=== PATIENT | male | born 1960 | race Caucasian/White ===

== ENCOUNTER 2018-06-27 06:40 | Inpatient (IN) | payer OTHER ==
[2018-06-27] MEDS ORDERED: IODIXANOL LOCM 100 ML BTL (09:02)
[2018-06-27] MEDS ORDERED: HEPARIN 1000 UNITS/ML 10 ML INJ (09:02)
[2018-06-27] MEDS ORDERED: LIDOCAINE 1% (MDV) 20 ML INJ (09:02)
[2018-06-27] MEDS ORDERED: NITROGLYCERIN (IC) 100 MCG/ML INJ (09:03)
[2018-06-27] MEDS ORDERED: VERAPAMIL 5 MG INJ (09:03)
[2018-06-27] MEDS ORDERED: FENTAnyl 50 MCG/ML VIAL (09:03)
[2018-06-27] MEDS ORDERED: MIDAZOLAM 1 MG/ML 2 ML INJ (09:03)
[2018-06-27] MEDS ORDERED: SOD CHLORIDE 0.9% 500 ML (10:33)
[2018-06-27] MEDS ORDERED: HEPARIN 1000 UNITS/ML 10 ML INJ IV (11:00)
[2018-06-27 11:17] LABS: ADD MAN DIFF? NO
[2018-06-27 11:19] LABS: WHITE BLOOD COUNT 9.9 10^3/ul (4.8-10.8)
[2018-06-27 11:19] LABS: BASOPHILS % 0.4 % (0.0-2.0); EOSINOPHILS # 0.1 10^3/ul (0.0-0.5); EOSINOPHILS % 1.4 % (0.0-7.0); HEMATOCRIT 45.9 % (42.0-52.0); HEMOGLOBIN 14.9 g/dl (14.0-18.0); LYMPHOCYTES % 30.4 % (15.0-51.0); MEAN CORPUSCULAR HEMOGLOBIN 30.8 pg (29.0-33.0); MEAN CORPUSCULAR HGB CONC 32.5 g/dl (32.0-37.0); MEAN CORPUSCULAR VOLUME 94.8 fl (82.0-101.0); MEAN PLATELET VOLUME 9.6 fl (7.4-10.4); MONOCYTE # 0.7 10^3/ul (0.3-0.9); MONOCYTES % 7.2 % (0.0-11.0); NEUTROPHIL # 5.9 10^3/ul (1.6-7.5); NEUTROPHILS % 60.2 % (39.0-77.0); PLATELET COUNT 140 10^3/UL (140-415); RED BLOOD COUNT 4.84 10^6/ul (4.70-6.10); RED CELL DISTRIBUTION WIDTH 14.1 % (11.5-14.5)
[2018-06-27] MEDS: ACETAMINOPHEN 325 MG TAB PO (11:27)
[2018-06-27] MEDS: ASPIRIN 81 MG TAB PO (11:27)
[2018-06-27] MEDS: METOPROLOL 25 MG TAB PO ×2 (11:28→21:00)
[2018-06-27] MEDS: SOD CHLORIDE 0.9% 1,000 ML IV (11:29)
[2018-06-27] MEDS ORDERED: morphine 2 MG INJ IV (11:30)
[2018-06-27 11:38] LABS: INR 0.95; PROTIME 12.8 Sec (11.9-14.9)
[2018-06-27 11:39] LABS: PARTIAL THROMBOPLASTIN TIME 34.5 Sec (23.0-35.0)
[2018-06-27 12:10] LABS: HEMOGLOBIN A1C 6.9 % (0-5.9)
[2018-06-27] MEDS: HOLD all METFORMIN and METFORMIN CONTAINING medications for 48 hours post procedure. Chec XX (14:02)
[2018-06-27] MEDS: ISOSORBIDE MONONITRATE(SR)60 MG TAB PO (14:21)
[2018-06-27] MEDS: HEPARIN 1000 UNITS/ML 10 ML INJ IV (14:58)
[2018-06-27] MEDS: HEPARIN 25000 UNITS/250 ML 250 ML IV (15:03)
[2018-06-27] MEDS ORDERED: DEXTROSE 50% 50 ML SYRINGE IV ×2 (15:30)
[2018-06-27] MEDS ORDERED: GLUCOSE GEL 15 GRAM TUBE BUCCAL (15:30)
[2018-06-27] MEDS ORDERED: GLUCOSE GEL 15 GRAM TUBE PO ×2 (15:30)
[2018-06-27] MEDS ORDERED: GLUCAGON 1 MG INJ IM (15:30)
[2018-06-27 16:07] LABS: ADD MAN DIFF? NO
[2018-06-27 16:11] LABS: BASOPHILS % 0.4 % (0.0-2.0); EOSINOPHILS # 0.1 10^3/ul (0.0-0.5); HEMOGLOBIN 14.5 g/dl (14.0-18.0); LYMPHOCYTES # 2.8 10^3/ul (0.8-2.9); LYMPHOCYTES % 26.9 % (15.0-51.0); MEAN CORPUSCULAR HEMOGLOBIN 30.9 pg (29.0-33.0); MEAN CORPUSCULAR HGB CONC 33.7 g/dl (32.0-37.0); MEAN CORPUSCULAR VOLUME 91.5 fl (82.0-101.0); MEAN PLATELET VOLUME 9.4 fl (7.4-10.4); MONOCYTE # 0.9 10^3/ul (0.3-0.9); MONOCYTES % 8.2 % (0.0-11.0); NEUTROPHIL # 6.6 10^3/ul (1.6-7.5); NEUTROPHILS % 63.1 % (39.0-77.0); PLATELET COUNT 147 10^3/UL (140-415)
[2018-06-27 16:11] LABS: WHITE BLOOD COUNT 10.4 10^3/ul (4.8-10.8)
[2018-06-27] MEDS: INSULIN ASPART [NOVOLOG] 3 ML PEN SC ×2 (17:00→21:00)
[2018-06-27 21:09] LABS: PARTIAL THROMBOPLASTIN TIME 32.2 Sec (23.0-35.0)
[2018-06-27] MEDS: ATORVASTATIN 80 MG TAB PO (21:39)
[2018-06-28] MEDS: HEPARIN 25000 UNITS/250 ML 250 ML IV ×3 (00:14→08:15)
[2018-06-28] MEDS: HEPARIN 1000 UNITS/ML 10 ML INJ IV (00:14)
[2018-06-28] MEDS: ACCU-CHEK XX (02:02)
[2018-06-28 06:48] LABS: ADD MAN DIFF? NO
[2018-06-28 06:56] LABS: WHITE BLOOD COUNT 10.4 10^3/ul (4.8-10.8)
[2018-06-28 06:56] LABS: BASOPHILS % 0.4 % (0.0-2.0); EOSINOPHILS # 0.2 10^3/ul (0.0-0.5); EOSINOPHILS % 1.9 % (0.0-7.0); HEMATOCRIT 46.5 % (42.0-52.0); HEMOGLOBIN 15.7 g/dl (14.0-18.0); LYMPHOCYTES # 3.1 10^3/ul (0.8-2.9); LYMPHOCYTES % 29.5 % (15.0-51.0); MEAN CORPUSCULAR HEMOGLOBIN 30.8 pg (29.0-33.0); MEAN CORPUSCULAR HGB CONC 33.8 g/dl (32.0-37.0); MEAN CORPUSCULAR VOLUME 91.4 fl (82.0-101.0); MEAN PLATELET VOLUME 9.2 fl (7.4-10.4); MONOCYTE # 0.7 10^3/ul (0.3-0.9); NEUTROPHIL # 6.3 10^3/ul (1.6-7.5); NEUTROPHILS % 60.8 % (39.0-77.0); PLATELET COUNT 155 10^3/UL (140-415); RED BLOOD COUNT 5.09 10^6/ul (4.70-6.10); RED CELL DISTRIBUTION WIDTH 13.8 % (11.5-14.5)
[2018-06-28 07:16] LABS: PARTIAL THROMBOPLASTIN TIME 53.6 Sec (23.0-35.0)
[2018-06-28 07:30] LABS: ANION GAP 9 (5-13); BLOOD UREA NITROGEN 11 mg/dl (7-20); CALCIUM 9.1 mg/dl (8.4-10.2); CARBON DIOXIDE 24 mmol/L (21-31); CHLORIDE 109 mmol/L (97-110); Estimated GFR > 60 mL/min (>60); GLUCOSE 115 mg/dl (70-220); MAGNESIUM 2.1 mg/dl (1.7-2.5); PHOSPHORUS 3.5 mg/dl (2.5-4.9); SODIUM 142 mmol/L (135-144)
[2018-06-28 07:48] LABS: POTASSIUM 4.1 mmol/L (3.5-5.1)
[2018-06-28] MEDS: INSULIN ASPART [NOVOLOG] 3 ML PEN SC ×4 (07:55→21:00)
[2018-06-28] MEDS: ISOSORBIDE MONONITRATE(SR)60 MG TAB PO (08:11)
[2018-06-28] MEDS: METOPROLOL 25 MG TAB PO ×2 (08:11→21:39)
[2018-06-28] MEDS: ASPIRIN 81 MG TAB PO (08:11)
[2018-06-28] MEDS ORDERED: ENOXAPARIN 40 MG/0.4 ML SYG SC (09:00)
[2018-06-28] MEDS ORDERED: INFLUENZA VIRUS VACCINE 0.5 ML (DISPENSING) IM* (09:00)
[2018-06-28] MEDS: ALBUTEROL 0.083% (NEB) 2.5 MG/3 ML AMP HHN (09:30)
[2018-06-28] MEDS: HOLD all METFORMIN and METFORMIN CONTAINING medications for 48 hours post procedure. Chec XX (10:44)
[2018-06-28 13:45] LABS: SODIUM,URINE RANDOM 98 mmol/L (30-90)
[2018-06-28 13:45] LABS: CREATININE,URINE RANDOM 94.15 mg/dl (20-370)
[2018-06-28 15:37] LABS: PARTIAL THROMBOPLASTIN TIME 58.8 Sec (23.0-35.0)
[2018-06-28 20:40] LABS: PARTIAL THROMBOPLASTIN TIME 57.2 Sec (23.0-35.0)
[2018-06-28] MEDS: ATORVASTATIN 80 MG TAB PO (21:38)
[2018-06-29] MEDS: ACCU-CHEK XX ×9 (02:00→23:56)
[2018-06-29] MEDS ORDERED: DOPamine-D5W 1.6 MG/ML 250 ML (07:00)
[2018-06-29] MEDS: INSULIN ASPART [NOVOLOG] 3 ML PEN SC (07:55)
[2018-06-29] MEDS: ASPIRIN 81 MG TAB PO (08:08)
[2018-06-29] MEDS: ISOSORBIDE MONONITRATE(SR)60 MG TAB PO (08:09)
[2018-06-29] MEDS: METOPROLOL 25 MG TAB PO ×2 (08:10→21:00)
[2018-06-29] MEDS ORDERED: MIDAZOLAM 5 ML ×2 (10:33)
[2018-06-29] MEDS ORDERED: PROPOFOL 100 ML (10:37)
[2018-06-29] MEDS ORDERED: ROCURONIUM 50 MG INJ (10:37)
[2018-06-29] MEDS ORDERED: NITROGLYCERIN 50 MG/D5W (PMX) 250 ML (10:37)
[2018-06-29] MEDS ORDERED: SUCCINYLCHOLINE CHLORIDE 100 MG/5 ML SYG IV (10:37)
[2018-06-29] MEDS ORDERED: NA BICARBONATE 8.4% 50 ML SYG ×2 (10:38→11:03)
[2018-06-29] MEDS ORDERED: LIDOCAINE 2% (SDV) 5 ML INJ (10:38)
[2018-06-29] MEDS ORDERED: CA CHLORIDE 10% 10 ML SYRINGE ×2 (10:38→11:01)
[2018-06-29] MEDS ORDERED: ALBUMIN HUMAN 25% 200 ML (10:38)
[2018-06-29] MEDS ORDERED: HEPARIN 1000 UNITS/ML 10 ML INJ ×3 (10:39→14:51)
[2018-06-29 10:41] LABS: ADD UMIC YES; UR ASCORBIC ACID NEGATIVE (NEGATIVE); UR BILIRUBIN (Dip) NEGATIVE (NEGATIVE); UR BLOOD (Dip) 1+ mg/dL (NEGATIVE); UR CLARITY CLEAR (CLEAR); UR COLOR YELLOW (YELLOW); UR GLUCOSE (Dip) NEGATIVE (NEGATIVE); UR KETONES (Dip) NEGATIVE (NEGATIVE); UR LEUKOCYTE ESTERASE (Dip) NEGATIVE Leu/ul (NEGATIVE); UR NITRITE (Dip) NEGATIVE (NEGATIVE); UR RBC 3 /HPF (0-5); UR SPECIFIC GRAVITY (Dip) 1.028 (1.003-1.030); UR TOTAL PROTEIN (Dip) NEGATIVE (NEGATIVE); UR UROBILINOGEN (Dip) 2+ mg/dL (NEGATIVE); UR WBC 0 /HPF (0-5)
[2018-06-29] MEDS ORDERED: HYDROmorphONE 0.5 MG/0.5 ML SYG IV ×4 (11:00→16:30)
[2018-06-29] MEDS ORDERED: DIPHENHYDRAMINE 50 MG INJ IV (11:00)
[2018-06-29] MEDS ORDERED: MEPERIDINE 25 MG INJ IV (11:00)
[2018-06-29] MEDS: NORepinephrine 8MG/250 ML (PMX 250 ML IV (11:00)
[2018-06-29] MEDS: HEPARIN (10000 UNITS/ML) 10,000 UNIT, MILRINONE LACTATE 10 MG in SOD CHLORIDE 0.9% 1,00... SC (11:00)
[2018-06-29] MEDS ORDERED: FENTAnyl 50 MCG/ML VIAL IV ×3 (11:00)
[2018-06-29] MEDS: EPINEPHrine 4 MG in DEXTROSE 5% 246 ML IV (11:00)
[2018-06-29] MEDS ORDERED: METOCLOPRAMIDE 10 MG INJ IV (11:00)
[2018-06-29] MEDS ORDERED: IPRATROPIUM (NEB) 0.5 MG/2.5 ML AMP HHN (11:00)
[2018-06-29] MEDS ORDERED: ONDANSETRON 4 MG INJ IV ×2 (11:00→16:30)
[2018-06-29] MEDS ORDERED: ALBUMIN HUMAN 25% 100 ML (11:00)
[2018-06-29] MEDS ORDERED: LORAZEPAM 2 MG INJ IV (11:00)
[2018-06-29] MEDS ORDERED: morphine 2 MG INJ IV ×2 (11:00)
[2018-06-29] MEDS ORDERED: LEVALBUTEROL (NEB) 1.25 MG/0.5 ML AMP HHN (11:00)
[2018-06-29] MEDS ORDERED: ALBUMIN HUMAN 5% 500 ML (11:00)
[2018-06-29] MEDS ORDERED: hydrALAzine 20 MG INJ IV (11:00)
[2018-06-29] MEDS ORDERED: HALOPERIDOL 5 MG INJ IV (11:00)
[2018-06-29] MEDS ORDERED: LABETALOL HCL 20MG INJ IV (11:00)
[2018-06-29] MEDS ORDERED: ALBUMIN HUMAN 5% 250 ML IV (11:00)
[2018-06-29] MEDS: PHENYLephrine 20MG IN 250 ML 250 ML IV ×3 (11:00→22:20)
[2018-06-29] MEDS ORDERED: morphine 10 MG INJ IV (11:00)
[2018-06-29] MEDS ORDERED: MIDAZOLAM 1 MG/ML 2 ML INJ IV (11:00)
[2018-06-29] MEDS ORDERED: AMINOCAPROIC ACID 5 GM INJ ×2 (11:01→12:38)
[2018-06-29] MEDS ORDERED: POTASSIUM CHLORIDE 40 MEQ INJ (11:02)
[2018-06-29] MEDS ORDERED: LIDOCAINE 100 MG SYRINGE (11:02)
[2018-06-29] MEDS ORDERED: MANNITOL 20% 500 ML (11:03)
[2018-06-29] MEDS ORDERED: MAGNESIUM SULFATE (MG) 50% 10 ML INJ (11:03)
[2018-06-29] MEDS ORDERED: PHENYLephrine 10 MG INJ (11:04)
[2018-06-29] MEDS ORDERED: PHENYLephrine (100 MCG/ML) 5ML SYG (11:05)
[2018-06-29] MEDS ORDERED: PROTAMINE 250 MG INJ (12:38)
[2018-06-29] MEDS ORDERED: CEFAZOLIN 1 GM INJ (12:38)
[2018-06-29] MEDS: HEPARIN 1000 UNITS/ML 10 ML INJ (13:03)
[2018-06-29] MEDS: PAPAVERINE 60 MG INJ (13:08)
[2018-06-29] MEDS: VANCOMYCIN 1 GM INJ ×2 (13:10→13:11)
[2018-06-29 14:57] LABS: CREATININE, RANDOM URINE 96 mg/dL (20-320); MICROALBUMIN 0.9 mg/dL; MICROALBUMIN/CREATININE RATIO 9 (<30)
[2018-06-29] MEDS ORDERED: FUROSEMIDE 20 MG INJ ×2 (15:00→15:51)
[2018-06-29] MEDS ORDERED: AMIODARONE 150 MG INJ (15:10)
[2018-06-29] MEDS ORDERED: morphine 10 MG INJ (15:40)
[2018-06-29] MEDS ORDERED: PROVENTIL HFA 6.7GM INHALER (15:54)
[2018-06-29] MEDS ORDERED: ACETAMINOPHEN 325 MG TAB PO (16:30)
[2018-06-29] MEDS: ASPIRIN 600 MG SUPP PR (16:30)
[2018-06-29] MEDS ORDERED: MAGNESIUM SULFATE 1 GM/D5W 100 ML IVPB (16:30)
[2018-06-29] MEDS ORDERED: CEFAZOLIN 1 GM/50 ML (PMX) 50 ML IVPB (16:30)
[2018-06-29] MEDS ORDERED: DEXTROSE 50% 50 ML SYRINGE IV ×2 (16:30)
[2018-06-29] MEDS: DOPamine-D5W 1.6 MG/ML 250 ML IV (17:16)
[2018-06-29] MEDS: MILRINONE LACTATE 2 MG in SOD CHLORIDE 0.9% 50 ML IV (17:18)
[2018-06-29] MEDS: INSULIN HUMAN REGULAR 100 UNIT in SOD CHLORIDE 0.9% 99 ML IVPB (17:21)
[2018-06-29] MEDS: CEFAZOLIN 2 GM/50 ML (PMX) 50 ML IVPB (17:23)
[2018-06-29 17:30] LABS: ADD MAN DIFF? NO
[2018-06-29 17:32] LABS: WHITE BLOOD COUNT 24.8 10^3/ul (4.8-10.8)
[2018-06-29 17:32] LABS: ABNORMAL IP MESSAGE 1; BASOPHIL # 0.1 10^3/ul (0.0-0.1); BASOPHILS % 0.4 % (0.0-2.0); EOSINOPHILS # 0.1 10^3/ul (0.0-0.5); EOSINOPHILS % 0.2 % (0.0-7.0); LYMPHOCYTES # 2.4 10^3/ul (0.8-2.9); LYMPHOCYTES % 9.7 % (15.0-51.0); MEAN CORPUSCULAR HGB CONC 33.3 g/dl (32.0-37.0); MEAN CORPUSCULAR VOLUME 93.1 fl (82.0-101.0); MEAN PLATELET VOLUME 9.4 fl (7.4-10.4); MONOCYTE # 1.4 10^3/ul (0.3-0.9); MONOCYTES % 5.7 % (0.0-11.0); NEUTROPHIL # 20.5 10^3/ul (1.6-7.5); NEUTROPHILS % 82.7 % (39.0-77.0); PLATELET COUNT 171 10^3/UL (140-415); POSITIVE DIFF @See below; RED BLOOD COUNT 4.19 10^6/ul (4.70-6.10); RED CELL DISTRIBUTION WIDTH 14.2 % (11.5-14.5)
[2018-06-29 17:48] LABS: ANION GAP 13 (5-13); BLOOD UREA NITROGEN 19 mg/dl (7-20); CALCIUM 9.4 mg/dl (8.4-10.2); CARBON DIOXIDE 22 mmol/L (21-31); CHLORIDE 110 mmol/L (97-110); Estimated GFR > 60 mL/min (>60); GLUCOSE 115 mg/dl (70-220); MAGNESIUM 3.2 mg/dl (1.7-2.5); POTASSIUM 3.8 mmol/L (3.5-5.1); SODIUM 145 mmol/L (135-144)
[2018-06-29 17:56] LABS: INR 1.17; PT RATIO 1.2
[2018-06-29 17:58] LABS: PARTIAL THROMBOPLASTIN TIME 35.2 Sec (23.0-35.0)
[2018-06-29] MEDS: HYDROmorphONE 0.5 MG/0.5 ML SYG IV ×3 (18:10→19:02)
[2018-06-29] MEDS: POTASSIUM CHLORIDE 40 MEQ, CALCIUM CHLORIDE 10% 1 GM in DEXTROSE 5%-0.225% NACL 1,000 ML IV (18:10)
[2018-06-29] MEDS: INSULIN HUMAN REGULAR 100 UNIT in SOD CHLORIDE 0.9% 99 ML IV (18:13)
[2018-06-29] MEDS: NITROGLYCERIN 50 MG/D5W (PMX) 250 ML IV (18:14)
[2018-06-29] MEDS: MILRINONE LACTATE 100 ML IV (18:25)
[2018-06-29 18:47] LABS: AADO2 Arterial 558.5 mmHg (7.0-24.0); Arterial Base Excess -6.8 mmol/L (-3.0-3); Arterial Blood Gas Oxygen Sat 96.7 mmHG (95.0-98.0); Arterial COHb 0.3 % (0.0-3.0); Arterial Fraction of Oxyhgb 95.9 % (93.0-99.0); Arterial HCO3 20.3 mmol/L (22.0-26.0); Arterial MetHb 0.5 % (0.0-1.5); Arterial pCO2 46.7 mmhg (35-45); Blood Gas PS A; MODE VENT - AC; Site A-Line
[2018-06-29] MEDS: POTASSIUM CHLORIDE 50 ML IVPB ×3 (19:25→21:49)
[2018-06-29] MEDS: NA BICARBONATE 8.4% 50 ML SYG IV (19:55)
[2018-06-29] MEDS ORDERED: PHENYLephrine 20MG IN 250 ML 250 ML IV (20:00)
[2018-06-29 20:02] LABS: MODE VENT - AC; MetHgb Mixed Venous 0.5 %; Mixed Venous COHb 0.1 %; Mixed Venous Fraction OxyHgb 74.7 %; Mixed Venous Oxygen Sat 75.2 mmHG (65.0-75.0); Mixed Venous Total Hemglobin 14.4 g/dl; Sample Type BLMV; Site PUL ART LINE
[2018-06-29] MEDS: FAMOTIDINE 20 MG INJ IV (20:29)
[2018-06-29] MEDS: PROPOFOL 100 ML IV (20:58)
[2018-06-29] MEDS: ATORVASTATIN 80 MG TAB PO (21:00)
[2018-06-29] MEDS: ENOXAPARIN 30 MG/0.3 ML SYG SC (21:00)
[2018-06-29 21:11] LABS: AADO2 Arterial 497.2 mmHg (7.0-24.0); Arterial Base Excess -2.2 mmol/L (-3.0-3); Arterial Blood Gas Oxygen Sat 98.5 mmHG (95.0-98.0); Arterial COHb 0.3 % (0.0-3.0); Arterial Fraction of Oxyhgb 97.8 % (93.0-99.0); Arterial HCO3 25.6 mmol/L (22.0-26.0); Arterial MetHb 0.4 % (0.0-1.5); MODE VENT - AC; Site A-Line
[2018-06-29] MEDS: CEFAZOLIN 1 GM/50 ML (PMX) 50 ML IVPB (21:52)
[2018-06-30] MEDS: ACCU-CHEK XX ×23 (00:57→23:00)
[2018-06-30] MEDS: PROPOFOL 100 ML IV ×2 (00:58→06:26)
[2018-06-30 01:09] LABS: POTASSIUM 4.4 mmol/L (3.5-5.1)
[2018-06-30] MEDS: POTASSIUM CHLORIDE 50 ML IVPB ×2 (01:20→05:36)
[2018-06-30] MEDS: HYDROmorphONE 0.5 MG/0.5 ML SYG IV ×2 (01:44→06:04)
[2018-06-30] MEDS: PHENYLephrine 20MG IN 250 ML 250 ML IV (03:27)
[2018-06-30 04:45] LABS: ADD MAN DIFF? NO
[2018-06-30 04:47] LABS: ABNORMAL IP MESSAGE 1; BASOPHIL # 0.1 10^3/ul (0.0-0.1); BASOPHILS % 0.3 % (0.0-2.0); LYMPHOCYTES # 1.9 10^3/ul (0.8-2.9); LYMPHOCYTES % 11.5 % (15.0-51.0); MEAN CORPUSCULAR HEMOGLOBIN 30.7 pg (29.0-33.0); MEAN CORPUSCULAR HGB CONC 32.4 g/dl (32.0-37.0); MEAN CORPUSCULAR VOLUME 94.6 fl (82.0-101.0); MEAN PLATELET VOLUME 9.9 fl (7.4-10.4); MONOCYTE # 1.5 10^3/ul (0.3-0.9); MONOCYTES % 9.4 % (0.0-11.0); NEUTROPHIL # 12.6 10^3/ul (1.6-7.5); NEUTROPHILS % 78.2 % (39.0-77.0); PLATELET COUNT 201 10^3/UL (140-415); POSITIVE DIFF @See below; RED BLOOD COUNT 3.91 10^6/ul (4.70-6.10); RED CELL DISTRIBUTION WIDTH 14.6 % (11.5-14.5)
[2018-06-30 04:47] LABS: WHITE BLOOD COUNT 16.1 10^3/ul (4.8-10.8)
[2018-06-30 05:08] LABS: INR 1.12; PROTIME 14.5 Sec (11.9-14.9); PT RATIO 1.1
[2018-06-30 05:09] LABS: ANION GAP 13 (5-13); BLOOD UREA NITROGEN 22 mg/dl (7-20); CALCIUM 8.8 mg/dl (8.4-10.2); CARBON DIOXIDE 26 mmol/L (21-31); CHLORIDE 108 mmol/L (97-110); CREATININE 1.06 mg/dl (0.61-1.24); Estimated GFR > 60 mL/min (>60); GLUCOSE 181 mg/dl (70-220); MAGNESIUM 2.6 mg/dl (1.7-2.5); PHOSPHORUS 5.5 mg/dl (2.5-4.9); POTASSIUM 4.5 mmol/L (3.5-5.1); SODIUM 147 mmol/L (135-144)
[2018-06-30 05:14] LABS: AADO2 Arterial 402.5 mmHg (7.0-24.0); Arterial Base Excess -1.3 mmol/L (-3.0-3); Arterial Blood Gas Oxygen Sat 97.9 mmHG (95.0-98.0); Arterial COHb 0.3 % (0.0-3.0); Arterial Fraction of Oxyhgb 97.3 % (93.0-99.0); Arterial HCO3 24.4 mmol/L (22.0-26.0); Arterial MetHb 0.3 % (0.0-1.5); Arterial pCO2 45.2 mmhg (35-45); MODE VENT - AC; Site A-Line
[2018-06-30] MEDS: CEFAZOLIN 1 GM/50 ML (PMX) 50 ML IVPB ×2 (05:36→14:39)
[2018-06-30] MEDS: SOD CHLORIDE 0.9% 500 ML IV (07:42)
[2018-06-30 08:25] LABS: POTASSIUM 4.5 mmol/L (3.5-5.1)
[2018-06-30] MEDS: FAMOTIDINE 20 MG INJ IV ×2 (08:25→20:24)
[2018-06-30] MEDS: ENOXAPARIN 30 MG/0.3 ML SYG SC ×2 (08:25→20:20)
[2018-06-30] MEDS: ASPIRIN (EC) 325 MG TAB PO (08:25)
[2018-06-30] MEDS: METOPROLOL 25 MG TAB PO ×2 (08:25→20:19)
[2018-06-30] MEDS ORDERED: ALBUMIN HUMAN 5% 250 ML IV (09:00)
[2018-06-30 09:15] LABS: ALANINE AMINOTRANSFERASE 47 IU/L (13-69); ALBUMIN 3.4 g/dl (3.3-4.9); ALKALINE PHOSPHATASE 43 IU/L (42-121); ASPARTATE AMINO TRANSFERASE 62 IU/L (15-46); BILIRUBIN,INDIRECT 0.9 mg/dl (0-1.1); BILIRUBIN,TOTAL 0.9 mg/dl (0.2-1.3); TOTAL PROTEIN 5.9 g/dl (6.1-8.1)
[2018-06-30] MEDS ORDERED: FUROSEMIDE 20 MG INJ (10:32)
[2018-06-30] MEDS: morphine 2 MG INJ IV ×4 (11:32→22:00)
[2018-06-30 13:21] LABS: Arterial Base Excess -1.6 mmol/L (-3.0-3); Arterial Blood Gas Oxygen Sat 92.1 mmHG (95.0-98.0); Arterial COHb 0.3 % (0.0-3.0); Arterial Fraction of Oxyhgb 91.5 % (93.0-99.0); Arterial HCO3 22.5 mmol/L (22.0-26.0); Arterial MetHb 0.3 % (0.0-1.5); Arterial pCO2 35.5 mmhg (35-45); Blood Gas PS 10; MODE VENT - CPAP; Site A-Line
[2018-06-30] MEDS: POTASSIUM CHLORIDE 40 MEQ, CALCIUM CHLORIDE 10% 1 GM in DEXTROSE 5%-0.225% NACL 1,000 ML IV (14:39)
[2018-06-30] MEDS: FUROSEMIDE 20 MG INJ IV (14:44)
[2018-06-30 16:23] LABS: HEMATOCRIT 32.1 % (42.0-52.0)
[2018-06-30] MEDS: ATORVASTATIN 80 MG TAB PO (20:19)
[2018-06-30] MEDS: INSULIN HUMAN REGULAR 100 UNIT in SOD CHLORIDE 0.9% 99 ML IV (21:09)
[2018-06-30] MEDS ORDERED: AMOXICILLIN/CLAV 500 MG TAB PO (22:00)
[2018-07-01] MEDS: ACCU-CHEK XX ×8 (01:00→07:00)
[2018-07-01] MEDS: OXYCODONE/ACETAMINOPHEN (5/325) TAB PO ×4 (01:09→22:59)
[2018-07-01 05:35] LABS: ADD MAN DIFF? NO
[2018-07-01] MEDS: POTASSIUM CHLORIDE 40 MEQ, CALCIUM CHLORIDE 10% 1 GM in DEXTROSE 5%-0.225% NACL 1,000 ML IV (05:45)
[2018-07-01 05:48] LABS: BASOPHILS % 0.3 % (0.0-2.0); EOSINOPHILS % 0.2 % (0.0-7.0); HEMATOCRIT 33.4 % (42.0-52.0); HEMOGLOBIN 10.9 g/dl (14.0-18.0); LYMPHOCYTES # 2.7 10^3/ul (0.8-2.9); LYMPHOCYTES % 18.7 % (15.0-51.0); MEAN CORPUSCULAR HGB CONC 32.6 g/dl (32.0-37.0); MEAN CORPUSCULAR VOLUME 94.9 fl (82.0-101.0); MEAN PLATELET VOLUME 10.2 fl (7.4-10.4); MONOCYTE # 1.4 10^3/ul (0.3-0.9); MONOCYTES % 9.5 % (0.0-11.0); NEUTROPHIL # 10.4 10^3/ul (1.6-7.5); NEUTROPHILS % 70.7 % (39.0-77.0); POSITIVE DIFF @See below; RED BLOOD COUNT 3.52 10^6/ul (4.70-6.10); RED CELL DISTRIBUTION WIDTH 14.4 % (11.5-14.5)
[2018-07-01 05:48] LABS: WHITE BLOOD COUNT 14.7 10^3/ul (4.8-10.8)
[2018-07-01 05:55] LABS: PLATELET COUNT 118 10^3/UL (140-415)
[2018-07-01 05:59] LABS: INR 1.07; PT RATIO 1.1
[2018-07-01 06:00] LABS: PARTIAL THROMBOPLASTIN TIME 21.5 Sec (23.0-35.0)
[2018-07-01 06:03] LABS: ANION GAP 9 (5-13); BLOOD UREA NITROGEN 24 mg/dl (7-20); CALCIUM 9.1 mg/dl (8.4-10.2); CARBON DIOXIDE 26 mmol/L (21-31); CHLORIDE 107 mmol/L (97-110); Estimated GFR > 60 mL/min (>60); GLUCOSE 112 mg/dl (70-220); MAGNESIUM 2.3 mg/dl (1.7-2.5); POTASSIUM 4.1 mmol/L (3.5-5.1); SODIUM 142 mmol/L (135-144)
[2018-07-01] MEDS: INSULIN HUMAN REGULAR 100 UNIT in SOD CHLORIDE 0.9% 99 ML IV (06:12)
[2018-07-01] MEDS: POTASSIUM CHLORIDE 50 ML IVPB (06:29)
[2018-07-01] MEDS: DIGOXIN 500 MCG INJ IV (06:46)
[2018-07-01 07:25] LABS: Allen Test ACCEPTAB; Arterial Base Excess -0.3 mmol/L (-3.0-3); Arterial Blood Gas Oxygen Sat 89.2 mmHG (95.0-98.0); Arterial COHb 0.3 % (0.0-3.0); Arterial Fraction of Oxyhgb 88.7 % (93.0-99.0); Arterial HCO3 23.8 mmol/L (22.0-26.0); Arterial MetHb 0.3 % (0.0-1.5); Arterial pCO2 37.1 mmhg (35-45); MODE NASAL CANNULA; Site Right Radial
[2018-07-01 07:31] LABS: PHOSPHORUS 3.4 mg/dl (2.5-4.9)
[2018-07-01] MEDS: morphine 2 MG INJ IV (07:38)
[2018-07-01] MEDS: MAGNESIUM SULFATE 2 GM/50 ML 50 ML IVPB (09:41)
[2018-07-01] MEDS: ASPIRIN (EC) 325 MG TAB PO (09:42)
[2018-07-01] MEDS: METOPROLOL 25 MG TAB PO ×2 (09:42→20:45)
[2018-07-01] MEDS: FAMOTIDINE 20 MG INJ IV ×2 (09:42→20:45)
[2018-07-01] MEDS: ENOXAPARIN 30 MG/0.3 ML SYG SC ×2 (09:44→21:03)
[2018-07-01] MEDS ORDERED: FUROSEMIDE 20 MG INJ IV (11:00)
[2018-07-01] MEDS: FUROSEMIDE 20 MG INJ IV ×2 (12:16→18:10)
[2018-07-01] MEDS: AMIODARONE 150MG/D5W BOLUS 100 ML IV (12:21)
[2018-07-01] MEDS: ALBUTEROL/IPRATROPIUM (NEB) 3 ML AMP HHN ×2 (15:10→20:14)
[2018-07-01] MEDS ORDERED: GLUCAGON 1 MG INJ IM (20:00)
[2018-07-01] MEDS ORDERED: GLUCOSE GEL 15 GRAM TUBE PO ×2 (20:00)
[2018-07-01] MEDS ORDERED: DEXTROSE 50% 50 ML SYRINGE IV ×2 (20:00)
[2018-07-01] MEDS ORDERED: GLUCOSE GEL 15 GRAM TUBE BUCCAL (20:00)
[2018-07-01] MEDS: ATORVASTATIN 80 MG TAB PO (20:45)
[2018-07-01] MEDS: AMIODARONE 200 MG TAB PO (20:45)
[2018-07-01] MEDS: INSULIN ASPART [NOVOLOG] 3 ML PEN SC (21:00)
[2018-07-02 05:14] LABS: ADD MAN DIFF? NO
[2018-07-02 05:19] LABS: BASOPHIL # 0.1 10^3/ul (0.0-0.1); BASOPHILS % 0.4 % (0.0-2.0); EOSINOPHILS # 0.2 10^3/ul (0.0-0.5); EOSINOPHILS % 1.2 % (0.0-7.0); HEMATOCRIT 35.4 % (42.0-52.0); HEMOGLOBIN 11.7 g/dl (14.0-18.0); LYMPHOCYTES # 2.2 10^3/ul (0.8-2.9); LYMPHOCYTES % 17.1 % (15.0-51.0); MEAN CORPUSCULAR HEMOGLOBIN 31.1 pg (29.0-33.0); MEAN CORPUSCULAR HGB CONC 33.1 g/dl (32.0-37.0); MEAN CORPUSCULAR VOLUME 94.1 fl (82.0-101.0); MEAN PLATELET VOLUME 9.4 fl (7.4-10.4); MONOCYTES % 7.9 % (0.0-11.0); NEUTROPHIL # 9.2 10^3/ul (1.6-7.5); NEUTROPHILS % 72.8 % (39.0-77.0); PLATELET COUNT 118 10^3/UL (140-415); RED BLOOD COUNT 3.76 10^6/ul (4.70-6.10); RED CELL DISTRIBUTION WIDTH 14.2 % (11.5-14.5)
[2018-07-02 05:19] LABS: WHITE BLOOD COUNT 12.6 10^3/ul (4.8-10.8)
[2018-07-02 06:11] LABS: ANION GAP 7 (5-13); BLOOD UREA NITROGEN 20 mg/dl (7-20); CALCIUM 8.7 mg/dl (8.4-10.2); CARBON DIOXIDE 30 mmol/L (21-31); CHLORIDE 104 mmol/L (97-110); CREATININE 0.72 mg/dl (0.61-1.24); Estimated GFR > 60 mL/min (>60); GLUCOSE 124 mg/dl (70-220); MAGNESIUM 2.1 mg/dl (1.7-2.5); PHOSPHORUS 3.4 mg/dl (2.5-4.9); POTASSIUM 4.4 mmol/L (3.5-5.1); SODIUM 141 mmol/L (135-144)
[2018-07-02] MEDS: INSULIN ASPART [NOVOLOG] 3 ML PEN SC ×4 (07:36→21:00)
[2018-07-02] MEDS: ALBUTEROL/IPRATROPIUM (NEB) 3 ML AMP HHN ×3 (08:26→20:04)
[2018-07-02] MEDS: METOPROLOL 25 MG TAB PO ×2 (08:52→20:57)
[2018-07-02] MEDS: ASPIRIN (EC) 325 MG TAB PO (08:52)
[2018-07-02] MEDS: AMIODARONE 200 MG TAB PO ×2 (08:53→20:56)
[2018-07-02] MEDS: FAMOTIDINE 20 MG INJ IV (08:53)
[2018-07-02] MEDS: ENOXAPARIN 30 MG/0.3 ML SYG SC ×2 (09:14→21:04)
[2018-07-02] MEDS: FAMOTIDINE 20 MG TAB PO (20:56)
[2018-07-02] MEDS: ATORVASTATIN 80 MG TAB PO (20:57)
[2018-07-02] MEDS: OXYCODONE/ACETAMINOPHEN (5/325) TAB PO (21:07)
[2018-07-03] MEDS: OXYCODONE/ACETAMINOPHEN (5/325) TAB PO ×3 (02:53→20:18)
[2018-07-03] MEDS: INSULIN ASPART [NOVOLOG] 3 ML PEN SC ×4 (07:45→20:16)
[2018-07-03] MEDS: FAMOTIDINE 20 MG TAB PO ×2 (07:45→20:18)
[2018-07-03] MEDS: ALBUTEROL/IPRATROPIUM (NEB) 3 ML AMP HHN ×3 (07:54→20:28)
[2018-07-03] MEDS: ASPIRIN (EC) 325 MG TAB PO (08:24)
[2018-07-03] MEDS: AMIODARONE 200 MG TAB PO ×2 (08:24→20:17)
[2018-07-03] MEDS: METOPROLOL 25 MG TAB PO ×2 (08:24→20:18)
[2018-07-03] MEDS: ENOXAPARIN 30 MG/0.3 ML SYG SC ×2 (08:59→20:23)
[2018-07-03] MEDS: ATORVASTATIN 80 MG TAB PO (20:18)
[2018-07-04] MEDS: OXYCODONE/ACETAMINOPHEN (5/325) TAB PO (02:54)
[2018-07-04] MEDS: ALBUTEROL/IPRATROPIUM (NEB) 3 ML AMP HHN ×2 (07:24→13:07)
[2018-07-04] MEDS: INSULIN ASPART [NOVOLOG] 3 ML PEN SC ×2 (08:00→12:00)
[2018-07-04] MEDS: ASPIRIN (EC) 325 MG TAB PO (08:55)
[2018-07-04] MEDS: METOPROLOL 25 MG TAB PO ×2 (08:58→11:26)
[2018-07-04] MEDS: AMIODARONE 200 MG TAB PO (08:59)
[2018-07-04] MEDS: ENOXAPARIN 30 MG/0.3 ML SYG SC (09:03)
[2018-07-04] MEDS: FAMOTIDINE 20 MG TAB PO (09:04)
[2018-07-04] MEDS ORDERED: METOPROLOL 25 MG TAB PO (21:00)
== END 2018-07-04 16:52 | disposition home health service (06) | DRG 233 ==
LOC: CCL 06:40 → SDS 06:40 → 6WM 07-01 14:10 → ICU 06-29 12:29 → CCL 10:40 → ICU 06-29 17:10 → REC 10:40 → TEL 14:00
PROC: 02100Z9 Bypass Coronary Artery, One Artery from Left Internal Mammary, Open Approach (ICD-10-PCS; principal; 2018-06-27 09:14)
PROC: 021309W Bypass Coronary Artery, Four or More Arteries from Aorta with Autologous Venous Tissue, Open Approach (ICD-10-PCS; 2018-06-27 09:14)
PROC: 4A023N7 Measurement of Cardiac Sampling and Pressure, Left Heart, Percutaneous Approach (ICD-10-PCS; 2018-06-27 09:14)
PROC: 06BQ4ZZ Excision of Left Saphenous Vein, Percutaneous Endoscopic Approach (ICD-10-PCS; 2018-06-27 09:14)
PROC: 06BP4ZZ Excision of Right Saphenous Vein, Percutaneous Endoscopic Approach (ICD-10-PCS; 2018-06-27 09:14)
PROC: B211YZZ Fluoroscopy of Multiple Coronary Arteries using Other Contrast (ICD-10-PCS; 2018-06-27 09:14)
PROC: 5A1221Z Performance of Cardiac Output, Continuous (ICD-10-PCS; 2018-06-27 09:14)
PROC: 5A1935Z Respiratory Ventilation, Less than 24 Consecutive Hours (ICD-10-PCS; 2018-06-27 09:14)
DX: I24.9 Acute ischemic heart disease, unspecified (principal); I50.31 Acute diastolic (congestive) heart failure; J96.01 Acute respiratory failure with hypoxia; R57.0 Cardiogenic shock; G92 Toxic encephalopathy; T82.855A Stenosis of coronary artery stent, initial encounter; E87.0 Hyperosmolality and hypernatremia; E83.42 Hypomagnesemia; E78.5 Hyperlipidemia, unspecified; E11.9 Type 2 diabetes mellitus without complications; E66.01 Morbid (severe) obesity due to excess calories; F17.200 Nicotine dependence, unspecified, uncomplicated; G47.33 Obstructive sleep apnea (adult) (pediatric); I11.0 Hypertensive heart disease with heart failure; I25.110 Atherosclerotic heart disease of native coronary artery with unstable angina pectoris; Y83.8 Other surgical procedures as the cause of abnormal reaction of the patient, or of later complication, without mention of misadventure at the time of the procedure; Z68.38 Body mass index [BMI] 38.0-38.9, adult; Z79.82 Long term (current) use of aspirin
CPT/HCPCS: 36592; 36600; 71045; 80048; 80076; 81001; 81003; 82043; 82803; 82962; 83036; 83735; 84100; 84132; 84155; 84300; 85014; 85025; 85610; 85730; 86850; 86900; 86901; 86920; 87081; 90686; 93005; 93312; 93320; 93325; 93454; 93880; 94002; 94003; 94060; 94640; 94664; 94770; 97110; 97116; 97163; 97530

== ENCOUNTER 2018-07-16 03:28 | Inpatient (IN) | payer OTHER ==
[2018-07-16 03:39] LABS: ADD MAN DIFF? NO
[2018-07-16] MEDS: FUROSEMIDE 40 MG INJ IV ×3 (03:45→18:09)
[2018-07-16 03:55] LABS: AADO2 Arterial 155.8 mmHg (7.0-24.0); Allen Test ACCEPTAB; Arterial Base Excess 2.8 mmol/L (-3.0-3); Arterial Blood Gas Oxygen Sat 91.4 mmHG (95.0-98.0); Arterial COHb 0.4 % (0.0-3.0); Arterial Fraction of Oxyhgb 90.9 % (93.0-99.0); Arterial HCO3 28.5 mmol/L (22.0-26.0); Arterial MetHb 0.2 % (0.0-1.5); Arterial pCO2 48.1 mmhg (35-45); MODE NASAL CANNULA; Site Right Radial
[2018-07-16 04:04] LABS: MAGNESIUM 2.1 mg/dl (1.7-2.5)
[2018-07-16 04:04] LABS: ANION GAP 7 (5-13); BLOOD UREA NITROGEN 20 mg/dl (7-20); CALCIUM 8.6 mg/dl (8.4-10.2); CARBON DIOXIDE 29 mmol/L (21-31); CHLORIDE 104 mmol/L (97-110); CREATININE 0.81 mg/dl (0.61-1.24); Estimated GFR > 60 mL/min (>60); GLUCOSE 134 mg/dl (70-220); POTASSIUM 3.8 mmol/L (3.5-5.1); SODIUM 140 mmol/L (135-144)
[2018-07-16 04:07] LABS: INR 1.14; PARTIAL THROMBOPLASTIN TIME 25.9 Sec (23.0-35.0); PROTIME 14.7 Sec (11.9-14.9); PT RATIO 1.1
[2018-07-16 04:10] LABS: BASOPHIL # 0.1 10^3/ul (0.0-0.1); BASOPHILS % 0.5 % (0.0-2.0); EOSINOPHILS # 0.6 10^3/ul (0.0-0.5); EOSINOPHILS % 3.7 % (0.0-7.0); HEMATOCRIT 36.2 % (42.0-52.0); HEMOGLOBIN 11.8 g/dl (14.0-18.0); LYMPHOCYTES # 1.9 10^3/ul (0.8-2.9); LYMPHOCYTES % 12.3 % (15.0-51.0); MEAN CORPUSCULAR HEMOGLOBIN 30.3 pg (29.0-33.0); MEAN CORPUSCULAR HGB CONC 32.6 g/dl (32.0-37.0); MEAN CORPUSCULAR VOLUME 92.8 fl (82.0-101.0); MEAN PLATELET VOLUME 8.1 fl (7.4-10.4); MONOCYTE # 1.3 10^3/ul (0.3-0.9); MONOCYTES % 8.3 % (0.0-11.0); NEUTROPHIL # 11.4 10^3/ul (1.6-7.5); NEUTROPHILS % 74.9 % (39.0-77.0); PLATELET COUNT 436 10^3/UL (140-415); RED CELL DISTRIBUTION WIDTH 14.4 % (11.5-14.5)
[2018-07-16 04:10] LABS: WHITE BLOOD COUNT 15.3 10^3/ul (4.8-10.8)
[2018-07-16 04:16] LABS: B-TYPE NATRIURETIC PEPTIDE 377 PG/ML (0-125); TROPONIN-I 0.046 ng/ml (0.000-0.120)
[2018-07-16] MEDS: LEVALBUTEROL (NEB) 1.25 MG/0.5 ML AMP HHN (04:37)
[2018-07-16] MEDS: CEFEPIME 1GM/50 ML (PMX) 50 ML IVPB ×2 (05:13→20:28)
[2018-07-16] MEDS: METHYLPREDNISOLONE 125 MG INJ IV (06:04)
[2018-07-16] MEDS: VANCOMYCIN 1 GM (PMX) 250 ML IVPB (06:27)
[2018-07-16 06:33] LABS: AADO2 Arterial 295.2 mmHg (7.0-24.0); Allen Test ACCEPTAB; Arterial Base Excess 2.3 mmol/L (-3.0-3); Arterial COHb 0.1 % (0.0-3.0); Arterial Fraction of Oxyhgb 95.9 % (93.0-99.0); Arterial HCO3 27.1 mmol/L (22.0-26.0); Arterial MetHb 0 % (0.0-1.5); Arterial pCO2 42.8 mmhg (35-45); Blood Gas IEPAP 18/5; Blood Gas PS 13; MODE MASK - BIPAP; Site Left Radial
[2018-07-16] MEDS: ALBUTEROL/IPRATROPIUM (NEB) 3 ML AMP HHN (09:00)
[2018-07-16] MEDS: ASPIRIN 325 MG TAB PO (09:09)
[2018-07-16] MEDS: ENOXAPARIN 100 MG/ML SYG SC ×2 (09:11→20:29)
[2018-07-16] MEDS ORDERED: VANCOMYCIN IV PER PHARMACY XX (09:30)
[2018-07-16 10:40] LABS: ALANINE AMINOTRANSFERASE 56 IU/L (13-69); ALKALINE PHOSPHATASE 101 IU/L (42-121); ASPARTATE AMINO TRANSFERASE 41 IU/L (15-46); TOTAL PROTEIN 6.5 g/dl (6.1-8.1)
[2018-07-16 10:52] LABS: TROPONIN-I 0.027 ng/ml (0.000-0.120)
[2018-07-16] MEDS: AMIODARONE 900 MG in DEXTROSE 5% 482 ML IV (11:32)
[2018-07-16] MEDS: NICOTINE (7 MG/24 HR) PATCH TRANSDERM (11:32)
[2018-07-16] MEDS: VANCOMYCIN HCL 1.5 GM in SOD CHLORIDE 0.9% 250 ML IVPB ×2 (11:50→23:17)
[2018-07-16] MEDS ORDERED: PENDING SANTYL ORDER FOR WOUND CARE XX (19:30)
[2018-07-16] MEDS: ATORVASTATIN 80 MG TAB PO (20:28)
[2018-07-16] MEDS: LORAZEPAM 2 MG INJ IV (22:52)
[2018-07-17] MEDS: FUROSEMIDE 40 MG INJ IV ×2 (05:11→17:13)
[2018-07-17 05:13] LABS: ADD MAN DIFF? NO
[2018-07-17 05:23] LABS: AADO2 Arterial 601.6 mmHg (7.0-24.0); Allen Test ACCEPTAB; Arterial Base Excess 2.8 mmol/L (-3.0-3); Arterial Blood Gas Oxygen Sat 93.9 mmHG (95.0-98.0); Arterial COHb 0.3 % (0.0-3.0); Arterial Fraction of Oxyhgb 93.5 % (93.0-99.0); Arterial HCO3 27.1 mmol/L (22.0-26.0); Arterial MetHb 0.1 % (0.0-1.5); Arterial pCO2 40.2 mmhg (35-45); MODE HFNC; Site Right Radial
[2018-07-17 05:53] LABS: ANION GAP 9 (5-13); BLOOD UREA NITROGEN 28 mg/dl (7-20); CALCIUM 8.4 mg/dl (8.4-10.2); CARBON DIOXIDE 31 mmol/L (21-31); CHLORIDE 99 mmol/L (97-110); CREATININE 0.73 mg/dl (0.61-1.24); Estimated GFR > 60 mL/min (>60); GLUCOSE 133 mg/dl (70-220); MAGNESIUM 2.1 mg/dl (1.7-2.5); PHOSPHORUS 3.8 mg/dl (2.5-4.9); POTASSIUM 3.9 mmol/L (3.5-5.1); SODIUM 139 mmol/L (135-144)
[2018-07-17 08:34] LABS: Allen Test ACCEPTAB; Arterial Base Excess 3.4 mmol/L (-3.0-3); Arterial Blood Gas Oxygen Sat 96.8 mmHG (95.0-98.0); Arterial COHb 0 % (0.0-3.0); Arterial Fraction of Oxyhgb 96.8 % (93.0-99.0); Arterial HCO3 28.6 mmol/L (22.0-26.0); Arterial MetHb 0 % (0.0-1.5); Arterial pCO2 45.7 mmhg (35-45); MODE HFNC; Site Right Radial
[2018-07-17] MEDS: NICOTINE (7 MG/24 HR) PATCH TRANSDERM (08:38)
[2018-07-17] MEDS: CEFEPIME 1GM/50 ML (PMX) 50 ML IVPB ×2 (08:39→21:23)
[2018-07-17] MEDS: ENOXAPARIN 100 MG/ML SYG SC ×2 (08:42→21:40)
[2018-07-17] MEDS: ASPIRIN 325 MG TAB PO (08:46)
[2018-07-17] MEDS: FAMOTIDINE 20 MG TAB PO ×2 (08:49→21:22)
[2018-07-17 10:12] LABS: ABNORMAL IP MESSAGE 1; BASOPHIL # 0.1 10^3/ul (0.0-0.1); BASOPHILS % 0.2 % (0.0-2.0); EOSINOPHILS # 0.1 10^3/ul (0.0-0.5); EOSINOPHILS % 0.2 % (0.0-7.0); HEMATOCRIT 34.7 % (42.0-52.0); HEMOGLOBIN 11.4 g/dl (14.0-18.0); LYMPHOCYTES # 1.8 10^3/ul (0.8-2.9); LYMPHOCYTES % 8.5 % (15.0-51.0); MEAN CORPUSCULAR HEMOGLOBIN 30.1 pg (29.0-33.0); MEAN CORPUSCULAR HGB CONC 32.9 g/dl (32.0-37.0); MEAN CORPUSCULAR VOLUME 91.6 fl (82.0-101.0); MEAN PLATELET VOLUME 9.1 fl (7.4-10.4); MONOCYTE # 1.8 10^3/ul (0.3-0.9); MONOCYTES % 8.5 % (0.0-11.0); NEUTROPHIL # 17.3 10^3/ul (1.6-7.5); NEUTROPHILS % 82.2 % (39.0-77.0); PLATELET COUNT 258 10^3/UL (140-415); POSITIVE DIFF @See below; RED BLOOD COUNT 3.79 10^6/ul (4.70-6.10); RED CELL DISTRIBUTION WIDTH 14.6 % (11.5-14.5)
[2018-07-17] MEDS: VANCOMYCIN HCL 1.5 GM in SOD CHLORIDE 0.9% 250 ML IVPB ×2 (13:09→23:56)
[2018-07-17] MEDS: METHYLPREDNISOLONE 40 MG INJ IV ×2 (14:20→21:22)
[2018-07-17] MEDS: HYDROCODONE/APAP (5/325) TAB PO (16:13)
[2018-07-17] MEDS: AMIODARONE 200 MG TAB PO ×2 (17:14→23:56)
[2018-07-17] MEDS: DILTIAZEM (CD) 120 MG CAP PO (17:47)
[2018-07-17] MEDS: ATORVASTATIN 80 MG TAB PO (21:22)
[2018-07-17 22:14] LABS: ADD UMIC YES; UR ASCORBIC ACID NEGATIVE (NEGATIVE); UR BILIRUBIN (Dip) NEGATIVE (NEGATIVE); UR BLOOD (Dip) 1+ mg/dL (NEGATIVE); UR CLARITY CLEAR (CLEAR); UR COLOR YELLOW (YELLOW); UR GLUCOSE (Dip) NEGATIVE (NEGATIVE); UR KETONES (Dip) NEGATIVE (NEGATIVE); UR LEUKOCYTE ESTERASE (Dip) NEGATIVE Leu/ul (NEGATIVE); UR MUCUS FEW /HPF (NONE SEEN); UR NITRITE (Dip) NEGATIVE (NEGATIVE); UR RBC 0 /HPF (0-5); UR SPECIFIC GRAVITY (Dip) 1.019 (1.003-1.030); UR TOTAL PROTEIN (Dip) NEGATIVE (NEGATIVE); UR UROBILINOGEN (Dip) 1+ mg/dL (NEGATIVE); UR WBC 2 /HPF (0-5)
[2018-07-17 22:24] LABS: CREATININE,URINE RANDOM 105.89 mg/dl (20-370)
[2018-07-17 22:40] LABS: SODIUM,URINE RANDOM 29 mmol/L (30-90)
[2018-07-17 23:53] LABS: VANCOMYCIN,TROUGH 9.9 ug/ml (10.0-20.0)
[2018-07-18 05:26] LABS: ADD MAN DIFF? NO
[2018-07-18 05:27] LABS: WHITE BLOOD COUNT 13.9 10^3/ul (4.8-10.8)
[2018-07-18 05:27] LABS: BASOPHILS % 0.1 % (0.0-2.0); HEMATOCRIT 35.4 % (42.0-52.0); HEMOGLOBIN 11.3 g/dl (14.0-18.0); LYMPHOCYTES # 0.9 10^3/ul (0.8-2.9); LYMPHOCYTES % 6.3 % (15.0-51.0); MEAN CORPUSCULAR HEMOGLOBIN 29.6 pg (29.0-33.0); MEAN CORPUSCULAR HGB CONC 31.9 g/dl (32.0-37.0); MEAN CORPUSCULAR VOLUME 92.7 fl (82.0-101.0); MEAN PLATELET VOLUME 8.8 fl (7.4-10.4); MONOCYTE # 0.3 10^3/ul (0.3-0.9); MONOCYTES % 2.2 % (0.0-11.0); NEUTROPHIL # 12.7 10^3/ul (1.6-7.5); NEUTROPHILS % 90.8 % (39.0-77.0); PLATELET COUNT 205 10^3/UL (140-415); RED BLOOD COUNT 3.82 10^6/ul (4.70-6.10); RED CELL DISTRIBUTION WIDTH 14.2 % (11.5-14.5)
[2018-07-18 05:45] LABS: ANION GAP 10 (5-13); BLOOD UREA NITROGEN 29 mg/dl (7-20); CALCIUM 8.4 mg/dl (8.4-10.2); CARBON DIOXIDE 32 mmol/L (21-31); CHLORIDE 98 mmol/L (97-110); CREATININE 0.55 mg/dl (0.61-1.24); Estimated GFR > 60 mL/min (>60); GLUCOSE 149 mg/dl (70-220); MAGNESIUM 2.1 mg/dl (1.7-2.5); PHOSPHORUS 4.2 mg/dl (2.5-4.9); POTASSIUM 3.8 mmol/L (3.5-5.1); SODIUM 140 mmol/L (135-144)
[2018-07-18] MEDS: FUROSEMIDE 40 MG INJ IV ×2 (06:31→17:11)
[2018-07-18] MEDS: METHYLPREDNISOLONE 40 MG INJ IV ×3 (06:31→21:00)
[2018-07-18] MEDS: ASPIRIN 325 MG TAB PO (09:03)
[2018-07-18] MEDS: FAMOTIDINE 20 MG TAB PO ×2 (09:03→20:48)
[2018-07-18] MEDS: POTASSIUM CHLORIDE (SR) 20 MEQ TAB PO (09:04)
[2018-07-18] MEDS: DILTIAZEM (CD) 120 MG CAP PO (09:04)
[2018-07-18] MEDS: AMIODARONE 200 MG TAB PO ×2 (09:05→20:48)
[2018-07-18] MEDS: CEFEPIME 1GM/50 ML (PMX) 50 ML IVPB ×2 (09:06→20:48)
[2018-07-18] MEDS: ACETAZOLAMIDE 500 MG INJ IV (09:10)
[2018-07-18] MEDS: NICOTINE (7 MG/24 HR) PATCH TRANSDERM (09:13)
[2018-07-18] MEDS: ENOXAPARIN 100 MG/ML SYG SC ×2 (09:16→20:49)
[2018-07-18] MEDS: VANCOMYCIN HCL 1.75 GM in SOD CHLORIDE 0.9% 500 ML IVPB ×2 (11:47→23:30)
[2018-07-18] MEDS: ATORVASTATIN 80 MG TAB PO (20:47)
[2018-07-19 05:12] LABS: ADD MAN DIFF? NO
[2018-07-19] MEDS: FUROSEMIDE 40 MG INJ IV ×2 (05:19→18:05)
[2018-07-19] MEDS: METHYLPREDNISOLONE 40 MG INJ IV ×3 (05:19→21:28)
[2018-07-19 05:23] LABS: BASOPHILS % 0.1 % (0.0-2.0); HEMATOCRIT 35.5 % (42.0-52.0); HEMOGLOBIN 11.4 g/dl (14.0-18.0); LYMPHOCYTES # 1.3 10^3/ul (0.8-2.9); LYMPHOCYTES % 6.9 % (15.0-51.0); MEAN CORPUSCULAR HGB CONC 32.1 g/dl (32.0-37.0); MEAN CORPUSCULAR VOLUME 93.4 fl (82.0-101.0); MEAN PLATELET VOLUME 8.8 fl (7.4-10.4); MONOCYTE # 0.6 10^3/ul (0.3-0.9); MONOCYTES % 2.9 % (0.0-11.0); NEUTROPHIL # 17.3 10^3/ul (1.6-7.5); NEUTROPHILS % 89.3 % (39.0-77.0); PLATELET COUNT 214 10^3/UL (140-415); RED CELL DISTRIBUTION WIDTH 14.2 % (11.5-14.5)
[2018-07-19 05:23] LABS: WHITE BLOOD COUNT 19.4 10^3/ul (4.8-10.8)
[2018-07-19 05:40] LABS: ANION GAP 8 (5-13); BLOOD UREA NITROGEN 26 mg/dl (7-20); CARBON DIOXIDE 30 mmol/L (21-31); CHLORIDE 104 mmol/L (97-110); CREATININE 0.79 mg/dl (0.61-1.24); Estimated GFR > 60 mL/min (>60); GLUCOSE 158 mg/dl (70-220); MAGNESIUM 2.4 mg/dl (1.7-2.5); PHOSPHORUS 3.7 mg/dl (2.5-4.9); POTASSIUM 4.1 mmol/L (3.5-5.1); SODIUM 142 mmol/L (135-144)
[2018-07-19] MEDS: ACETAZOLAMIDE 500 MG INJ IV (09:21)
[2018-07-19] MEDS: CEFEPIME 1GM/50 ML (PMX) 50 ML IVPB ×2 (09:21→21:28)
[2018-07-19] MEDS: DILTIAZEM (CD) 120 MG CAP PO (09:22)
[2018-07-19] MEDS: ASPIRIN 325 MG TAB PO (09:22)
[2018-07-19] MEDS: FAMOTIDINE 20 MG TAB PO ×2 (09:22→21:28)
[2018-07-19] MEDS: AMIODARONE 200 MG TAB PO ×2 (09:23→21:28)
[2018-07-19] MEDS: ENOXAPARIN 100 MG/ML SYG SC (09:24)
[2018-07-19] MEDS: NICOTINE (7 MG/24 HR) PATCH TRANSDERM (13:10)
[2018-07-19] MEDS: VANCOMYCIN HCL 1.75 GM in SOD CHLORIDE 0.9% 500 ML IVPB (13:12)
[2018-07-19 15:47] LABS: CREATININE, RANDOM URINE 100 mg/dL (20-320); MICROALBUMIN 0.6 mg/dL; MICROALBUMIN/CREATININE RATIO 6 (<30)
[2018-07-19] MEDS: METOLAZONE 5 MG TAB PO (16:26)
[2018-07-19] MEDS: ATORVASTATIN 80 MG TAB PO (21:28)
[2018-07-20] MEDS: VANCOMYCIN HCL 1.75 GM in SOD CHLORIDE 0.9% 500 ML IVPB ×2 (00:02→12:17)
[2018-07-20 05:26] LABS: ADD MAN DIFF? NO
[2018-07-20] MEDS: METHYLPREDNISOLONE 40 MG INJ IV ×3 (05:42→20:16)
[2018-07-20] MEDS: FUROSEMIDE 40 MG INJ IV ×2 (05:43→17:34)
[2018-07-20 05:56] LABS: WHITE BLOOD COUNT 18.7 10^3/ul (4.8-10.8)
[2018-07-20 05:56] LABS: BASOPHILS % 0.1 % (0.0-2.0); HEMATOCRIT 34.8 % (42.0-52.0); HEMOGLOBIN 11.3 g/dl (14.0-18.0); LYMPHOCYTES # 1.4 10^3/ul (0.8-2.9); LYMPHOCYTES % 7.7 % (15.0-51.0); MEAN CORPUSCULAR HEMOGLOBIN 30.4 pg (29.0-33.0); MEAN CORPUSCULAR HGB CONC 32.5 g/dl (32.0-37.0); MEAN CORPUSCULAR VOLUME 93.5 fl (82.0-101.0); MEAN PLATELET VOLUME 9.1 fl (7.4-10.4); MONOCYTE # 0.6 10^3/ul (0.3-0.9); NEUTROPHIL # 16.5 10^3/ul (1.6-7.5); PLATELET COUNT 203 10^3/UL (140-415); RED BLOOD COUNT 3.72 10^6/ul (4.70-6.10); RED CELL DISTRIBUTION WIDTH 14.1 % (11.5-14.5)
[2018-07-20 06:14] LABS: ANION GAP 11 (5-13); BLOOD UREA NITROGEN 30 mg/dl (7-20); CALCIUM 9.3 mg/dl (8.4-10.2); CARBON DIOXIDE 30 mmol/L (21-31); CHLORIDE 99 mmol/L (97-110); CREATININE 0.91 mg/dl (0.61-1.24); Estimated GFR > 60 mL/min (>60); GLUCOSE 158 mg/dl (70-220); MAGNESIUM 2.3 mg/dl (1.7-2.5); PHOSPHORUS 4.4 mg/dl (2.5-4.9); POTASSIUM 4.8 mmol/L (3.5-5.1); SODIUM 140 mmol/L (135-144)
[2018-07-20 07:30] LABS: AADO2 Arterial 253.3 mmHg (7.0-24.0); Allen Test ACCEPTAB; Arterial Blood Gas Oxygen Sat 89.6 mmHG (95.0-98.0); Arterial COHb 0.3 % (0.0-3.0); Arterial Fraction of Oxyhgb 89.2 % (93.0-99.0); Arterial HCO3 27.2 mmol/L (22.0-26.0); Arterial MetHb 0.1 % (0.0-1.5); Arterial pCO2 39.9 mmhg (35-45); MODE HFNC; Site Right Radial
[2018-07-20] MEDS: CEFEPIME 1GM/50 ML (PMX) 50 ML IVPB ×2 (08:16→20:14)
[2018-07-20] MEDS: ACETAZOLAMIDE 500 MG INJ IV (08:17)
[2018-07-20] MEDS: FAMOTIDINE 20 MG TAB PO ×2 (08:19→20:16)
[2018-07-20] MEDS: AMIODARONE 200 MG TAB PO ×2 (08:19→20:16)
[2018-07-20] MEDS: DILTIAZEM (CD) 120 MG CAP PO (08:19)
[2018-07-20] MEDS: NICOTINE (7 MG/24 HR) PATCH TRANSDERM (08:21)
[2018-07-20] MEDS: METOLAZONE 5 MG TAB PO (10:38)
[2018-07-20] MEDS: ASPIRIN 325 MG TAB PO (10:38)
[2018-07-20] MEDS: LIDOCAINE 1% (MPF) 5 ML VIAL (10:47)
[2018-07-20 12:02] LABS: VANCOMYCIN,TROUGH 13.4 ug/ml (10.0-20.0)
[2018-07-20 12:36] LABS: FLUID LD 2627 U/L; FLUID TYPE THORACENTESIS FLUID
[2018-07-20 12:37] LABS: FLUID TOTAL PROTEIN 4.8 g/dl
[2018-07-20] MEDS: SOD CHLORIDE 0.9% 100 ML (19:56)
[2018-07-20] MEDS: IOHEXOL 100 ML (19:56)
[2018-07-20] MEDS: ATORVASTATIN 80 MG TAB PO (20:15)
[2018-07-21 05:15] LABS: ADD MAN DIFF? NO
[2018-07-21 05:16] LABS: BASOPHILS % 0.2 % (0.0-2.0); HEMATOCRIT 34.9 % (42.0-52.0); HEMOGLOBIN 11.1 g/dl (14.0-18.0); LYMPHOCYTES # 1.8 10^3/ul (0.8-2.9); LYMPHOCYTES % 9.8 % (15.0-51.0); MEAN CORPUSCULAR HEMOGLOBIN 28.9 pg (29.0-33.0); MEAN CORPUSCULAR HGB CONC 31.8 g/dl (32.0-37.0); MEAN CORPUSCULAR VOLUME 90.9 fl (82.0-101.0); MEAN PLATELET VOLUME 9.5 fl (7.4-10.4); MONOCYTE # 0.8 10^3/ul (0.3-0.9); MONOCYTES % 4.2 % (0.0-11.0); NEUTROPHIL # 15.6 10^3/ul (1.6-7.5); NEUTROPHILS % 84.7 % (39.0-77.0); NUCLEATED RED BLOOD CELLS% 0.1 /100WBC (0.0-0.0); PLATELET COUNT 147 10^3/UL (140-415); RED BLOOD COUNT 3.84 10^6/ul (4.70-6.10)
[2018-07-21 05:16] LABS: WHITE BLOOD COUNT 18.4 10^3/ul (4.8-10.8)
[2018-07-21 05:29] LABS: ANION GAP 11 (5-13); BLOOD UREA NITROGEN 35 mg/dl (7-20); CALCIUM 9.2 mg/dl (8.4-10.2); CARBON DIOXIDE 31 mmol/L (21-31); CHLORIDE 96 mmol/L (97-110); CREATININE 0.97 mg/dl (0.61-1.24); Estimated GFR > 60 mL/min (>60); GLUCOSE 172 mg/dl (70-220); MAGNESIUM 2.2 mg/dl (1.7-2.5); PHOSPHORUS 5.5 mg/dl (2.5-4.9); POTASSIUM 4.4 mmol/L (3.5-5.1); SODIUM 138 mmol/L (135-144)
[2018-07-21] MEDS: METHYLPREDNISOLONE 40 MG INJ IV (06:09)
[2018-07-21] MEDS: FUROSEMIDE 40 MG INJ IV ×2 (06:10→18:23)
[2018-07-21 08:40] LABS: AADO2 Arterial 104.9 mmHg (7.0-24.0); Arterial Base Excess 3.6 mmol/L (-3.0-3); Arterial Blood Gas Oxygen Sat 89.7 mmHG (95.0-98.0); Arterial COHb 0.3 % (0.0-3.0); Arterial Fraction of Oxyhgb 89.3 % (93.0-99.0); Arterial HCO3 27.9 mmol/L (22.0-26.0); Arterial MetHb 0.1 % (0.0-1.5); Arterial pCO2 41.1 mmhg (35-45); MODE NASAL CANNULA; Site Right Brachial
[2018-07-21] MEDS: DILTIAZEM (CD) 120 MG CAP PO (09:37)
[2018-07-21] MEDS: CEFEPIME 1GM/50 ML (PMX) 50 ML IVPB ×2 (09:37→21:18)
[2018-07-21] MEDS: ASPIRIN 325 MG TAB PO (09:37)
[2018-07-21] MEDS: ACETAZOLAMIDE 500 MG INJ IV (09:37)
[2018-07-21] MEDS: FAMOTIDINE 20 MG TAB PO ×2 (09:38→21:19)
[2018-07-21] MEDS: AMIODARONE 200 MG TAB PO ×2 (09:38→21:19)
[2018-07-21] MEDS: ENOXAPARIN 100 MG/ML SYG SC (09:48)
[2018-07-21] MEDS: VANCOMYCIN HCL 1.75 GM in SOD CHLORIDE 0.9% 500 ML IVPB ×2 (13:50)
[2018-07-21] MEDS: NICOTINE (7 MG/24 HR) PATCH TRANSDERM (13:52)
[2018-07-21] MEDS: APIXABAN 5 MG TABLET PO (21:18)
[2018-07-21] MEDS: ATORVASTATIN 80 MG TAB PO (21:18)
[2018-07-22] MEDS: VANCOMYCIN HCL 1.75 GM in SOD CHLORIDE 0.9% 500 ML IVPB ×2 (00:05→14:36)
[2018-07-22] MEDS: FUROSEMIDE 40 MG INJ IV (06:13)
[2018-07-22 07:22] LABS: ADD MAN DIFF? NO
[2018-07-22 07:23] LABS: ABNORMAL IP MESSAGE 1; BASOPHILS % 0.1 % (0.0-2.0); EOSINOPHILS # 0.1 10^3/ul (0.0-0.5); EOSINOPHILS % 0.4 % (0.0-7.0); HEMATOCRIT 34.9 % (42.0-52.0); HEMOGLOBIN 11.4 g/dl (14.0-18.0); LYMPHOCYTES % 19.4 % (15.0-51.0); MEAN CORPUSCULAR HEMOGLOBIN 29.5 pg (29.0-33.0); MEAN CORPUSCULAR HGB CONC 32.7 g/dl (32.0-37.0); MEAN CORPUSCULAR VOLUME 90.4 fl (82.0-101.0); MEAN PLATELET VOLUME 10.1 fl (7.4-10.4); MONOCYTE # 1.5 10^3/ul (0.3-0.9); MONOCYTES % 7.4 % (0.0-11.0); NEUTROPHIL # 14.6 10^3/ul (1.6-7.5); NEUTROPHILS % 70.9 % (39.0-77.0); NUCLEATED RED BLOOD CELLS% 0.2 /100WBC (0.0-0.0); PLATELET COUNT 97 10^3/UL (140-415); POSITIVE DIFF @See below; RED BLOOD COUNT 3.86 10^6/ul (4.70-6.10); RED CELL DISTRIBUTION WIDTH 14.3 % (11.5-14.5)
[2018-07-22 07:23] LABS: WHITE BLOOD COUNT 20.7 10^3/ul (4.8-10.8)
[2018-07-22 07:49] LABS: ANION GAP 11 (5-13); BLOOD UREA NITROGEN 38 mg/dl (7-20); CALCIUM 8.9 mg/dl (8.4-10.2); CARBON DIOXIDE 31 mmol/L (21-31); CHLORIDE 96 mmol/L (97-110); CREATININE 1.12 mg/dl (0.61-1.24); Estimated GFR > 60 mL/min (>60); GLUCOSE 107 mg/dl (70-220); MAGNESIUM 2.1 mg/dl (1.7-2.5); POTASSIUM 3.2 mmol/L (3.5-5.1); SODIUM 138 mmol/L (135-144)
[2018-07-22] MEDS: DILTIAZEM (CD) 120 MG CAP PO (10:16)
[2018-07-22] MEDS: FAMOTIDINE 20 MG TAB PO ×2 (10:16→21:32)
[2018-07-22] MEDS: AMIODARONE 200 MG TAB PO ×2 (10:16→21:32)
[2018-07-22] MEDS: APIXABAN 5 MG TABLET PO ×2 (10:16→21:32)
[2018-07-22] MEDS: NICOTINE (7 MG/24 HR) PATCH TRANSDERM (10:17)
[2018-07-22] MEDS: POTASSIUM CHLORIDE (SR) 20 MEQ TAB PO (10:17)
[2018-07-22] MEDS: ASPIRIN 325 MG TAB PO (10:19)
[2018-07-22] MEDS: METHYLPREDNISOLONE 40 MG INJ IV (11:15)
[2018-07-22] MEDS: CEFEPIME 1GM/50 ML (PMX) 50 ML IVPB ×2 (11:15→21:32)
[2018-07-22] MEDS: ATORVASTATIN 80 MG TAB PO (21:32)
[2018-07-22 23:42] LABS: VANCOMYCIN,TROUGH 14.2 ug/ml (10.0-20.0)
[2018-07-23] MEDS: VANCOMYCIN HCL 1.75 GM in SOD CHLORIDE 0.9% 500 ML IVPB ×3 (00:28→12:28)
[2018-07-23] MEDS ORDERED: FUROSEMIDE 40 MG TAB PO (06:00)
[2018-07-23] MEDS: FUROSEMIDE 20 MG TAB PO (06:29)
[2018-07-23 06:42] LABS: ADD MAN DIFF? NO
[2018-07-23 07:07] LABS: WHITE BLOOD COUNT 20.1 10^3/ul (4.8-10.8)
[2018-07-23 07:07] LABS: ABNORMAL IP MESSAGE 1; BASOPHILS % 0.2 % (0.0-2.0); EOSINOPHILS # 0.1 10^3/ul (0.0-0.5); EOSINOPHILS % 0.6 % (0.0-7.0); HEMATOCRIT 33.8 % (42.0-52.0); LYMPHOCYTES # 2.7 10^3/ul (0.8-2.9); LYMPHOCYTES % 13.5 % (15.0-51.0); MEAN CORPUSCULAR HEMOGLOBIN 29.4 pg (29.0-33.0); MEAN CORPUSCULAR HGB CONC 32.5 g/dl (32.0-37.0); MEAN CORPUSCULAR VOLUME 90.4 fl (82.0-101.0); MEAN PLATELET VOLUME 9.9 fl (7.4-10.4); MONOCYTE # 1.2 10^3/ul (0.3-0.9); MONOCYTES % 6.1 % (0.0-11.0); NEUTROPHIL # 15.5 10^3/ul (1.6-7.5); NEUTROPHILS % 77.3 % (39.0-77.0); NUCLEATED RED BLOOD CELLS% 0.1 /100WBC (0.0-0.0); POSITIVE DIFF @See below; RED BLOOD COUNT 3.74 10^6/ul (4.70-6.10); RED CELL DISTRIBUTION WIDTH 14.5 % (11.5-14.5)
[2018-07-23 07:09] LABS: ANION GAP 8 (5-13); BLOOD UREA NITROGEN 35 mg/dl (7-20); CALCIUM 8.5 mg/dl (8.4-10.2); CARBON DIOXIDE 32 mmol/L (21-31); CHLORIDE 99 mmol/L (97-110); CREATININE 0.73 mg/dl (0.61-1.24); Estimated GFR > 60 mL/min (>60); GLUCOSE 116 mg/dl (70-220); PHOSPHORUS 3.2 mg/dl (2.5-4.9); POTASSIUM 3.8 mmol/L (3.5-5.1); SODIUM 139 mmol/L (135-144)
[2018-07-23 07:11] LABS: PLATELET COUNT 46 10^3/UL (140-415)
[2018-07-23] MEDS: METHYLPREDNISOLONE 40 MG INJ IV (09:07)
[2018-07-23] MEDS: CEFEPIME 1GM/50 ML (PMX) 50 ML IVPB ×2 (09:07→21:07)
[2018-07-23] MEDS: ASPIRIN 325 MG TAB PO (09:07)
[2018-07-23] MEDS: FAMOTIDINE 20 MG TAB PO ×2 (09:08→21:07)
[2018-07-23] MEDS: APIXABAN 5 MG TABLET PO ×2 (09:08→21:07)
[2018-07-23] MEDS: NICOTINE (7 MG/24 HR) PATCH TRANSDERM (09:08)
[2018-07-23] MEDS: DILTIAZEM (CD) 120 MG CAP PO (09:08)
[2018-07-23] MEDS: AMIODARONE 200 MG TAB PO ×2 (09:08→21:07)
[2018-07-23] MEDS: ACETAZOLAMIDE 500 MG INJ IV (12:28)
[2018-07-23] MEDS: ATORVASTATIN 80 MG TAB PO (21:07)
[2018-07-24] MEDS: VANCOMYCIN HCL 1.75 GM in SOD CHLORIDE 0.9% 500 ML IVPB (00:27)
[2018-07-24] MEDS: FUROSEMIDE 20 MG TAB PO (05:27)
[2018-07-24 08:13] LABS: ADD MAN DIFF? NO
[2018-07-24 08:26] LABS: ABNORMAL IP MESSAGE 1; BASOPHILS % 0.1 % (0.0-2.0); EOSINOPHILS # 0.3 10^3/ul (0.0-0.5); EOSINOPHILS % 1.1 % (0.0-7.0); HEMATOCRIT 35.2 % (42.0-52.0); HEMOGLOBIN 11.2 g/dl (14.0-18.0); LYMPHOCYTES # 3.8 10^3/ul (0.8-2.9); MEAN CORPUSCULAR HEMOGLOBIN 29.2 pg (29.0-33.0); MEAN CORPUSCULAR HGB CONC 31.8 g/dl (32.0-37.0); MEAN CORPUSCULAR VOLUME 91.9 fl (82.0-101.0); MEAN PLATELET VOLUME 11.6 fl (7.4-10.4); MONOCYTE # 1.7 10^3/ul (0.3-0.9); MONOCYTES % 7.7 % (0.0-11.0); NEUTROPHIL # 15.9 10^3/ul (1.6-7.5); NEUTROPHILS % 71.3 % (39.0-77.0); NUCLEATED RED BLOOD CELLS% 0.1 /100WBC (0.0-0.0); POSITIVE DIFF @See below; RED BLOOD COUNT 3.83 10^6/ul (4.70-6.10); RED CELL DISTRIBUTION WIDTH 15.2 % (11.5-14.5)
[2018-07-24 08:26] LABS: WHITE BLOOD COUNT 22.4 10^3/ul (4.8-10.8)
[2018-07-24 08:48] LABS: ANION GAP 9 (5-13); BLOOD UREA NITROGEN 27 mg/dl (7-20); CALCIUM 8.6 mg/dl (8.4-10.2); CARBON DIOXIDE 32 mmol/L (21-31); CHLORIDE 99 mmol/L (97-110); CREATININE 0.85 mg/dl (0.61-1.24); Estimated GFR > 60 mL/min (>60); GLUCOSE 96 mg/dl (70-220); MAGNESIUM 2.1 mg/dl (1.7-2.5); PHOSPHORUS 3.4 mg/dl (2.5-4.9); POTASSIUM 4.2 mmol/L (3.5-5.1); SODIUM 140 mmol/L (135-144)
[2018-07-24 09:10] LABS: PLATELET COUNT 27 10^3/UL (140-415)
[2018-07-24 09:12] LABS: PATH REVIEW? YES
[2018-07-24 10:36] LABS: ANISOCYTOSIS 1+ (0-0); BAND NEUTROPHILS #M 0.2 10^3/ul (0.0-0.6); BAND NEUTROPHILS % (M) 1 % (0-4); HYPOCHROMASIA 1+ (0-0); LYMPHOCYTES % (M) 18 % (15-51); MONOCYTES % (M) 9 % (0-11); PLASMA CELLS #M 0.2 10^3/ul (0.0-0.0); PLASMAC%(M) 1 % (0); PLATELET ESTIMATE SIG DECREASED; POLYCHROMASIA 1+ (0-0); SEG NEUT #M 15.9 10^3/ul (1.6-7.5); SEGMENTED NEUTROPHILS (M) % 71 % (39-77); SMUDGE%M 5 % (0-0)
[2018-07-24 12:00] LABS: VANCOMYCIN,TROUGH 14.3 ug/ml (10.0-20.0)
[2018-07-24] MEDS: METHYLPREDNISOLONE 40 MG INJ IV (13:16)
[2018-07-24] MEDS: AMIODARONE 200 MG TAB PO ×2 (13:18→20:31)
[2018-07-24] MEDS: FAMOTIDINE 20 MG TAB PO ×2 (13:18→20:31)
[2018-07-24] MEDS: DILTIAZEM (CD) 120 MG CAP PO (13:18)
[2018-07-24] MEDS: NICOTINE (7 MG/24 HR) PATCH TRANSDERM (13:18)
[2018-07-24] MEDS: ATORVASTATIN 80 MG TAB PO (20:31)
[2018-07-25] MEDS: FUROSEMIDE 20 MG TAB PO (07:08)
[2018-07-25 07:20] LABS: ABNORMAL IP MESSAGE 1; HEMATOCRIT 33.3 % (42.0-52.0); HEMOGLOBIN 10.5 g/dl (14.0-18.0); MEAN CORPUSCULAR HGB CONC 31.5 g/dl (32.0-37.0); MEAN PLATELET VOLUME 12.6 fl (7.4-10.4); NUCLEATED RED BLOOD CELLS% 0.1 /100WBC (0.0-0.0); POSITIVE DIFF @See below; RED BLOOD COUNT 3.62 10^6/ul (4.70-6.10); RED CELL DISTRIBUTION WIDTH 15.3 % (11.5-14.5)
[2018-07-25 07:31] LABS: PATH REVIEW? YES
[2018-07-25 07:33] LABS: ADD MAN DIFF? YES; PLATELET COUNT 25 10^3/UL (140-415)
[2018-07-25 07:54] LABS: ANION GAP 6 (5-13); BLOOD UREA NITROGEN 26 mg/dl (7-20); CALCIUM 8.4 mg/dl (8.4-10.2); CARBON DIOXIDE 30 mmol/L (21-31); CHLORIDE 102 mmol/L (97-110); CREATININE 0.62 mg/dl (0.61-1.24); Estimated GFR > 60 mL/min (>60); GLUCOSE 93 mg/dl (70-220); PHOSPHORUS 3.5 mg/dl (2.5-4.9); POTASSIUM 3.8 mmol/L (3.5-5.1); SODIUM 138 mmol/L (135-144)
[2018-07-25] MEDS: FAMOTIDINE 20 MG TAB PO ×2 (08:49→21:10)
[2018-07-25] MEDS: METHYLPREDNISOLONE 40 MG INJ IV (08:49)
[2018-07-25 08:54] LABS: ANISOCYTOSIS 1+ (0-0); BAND NEUTROPHILS #M 0.2 10^3/ul (0.0-0.6); BAND NEUTROPHILS % (M) 1 % (0-4); BASOPHIL #M 0.2 10^3/ul (0.0-0.0); BASOPHILS % (M) 1 % (0-2); BURR CELLS 1+ (0-0); LYMPHOCYTES #M 1.5 10^3/ul (0.8-2.9); LYMPHOCYTES % (M) 7 % (15-51); METAMYELOCYTES #M 0.2 10^3/ul (0.0-0.0); METAMYELOCYTES %M 1 % (0-0); MICROCYTOSIS 1+ (0-0); MONOCYTE #M 1.1 10^3/ul (0.3-0.9); MONOCYTES % (M) 5 % (0-11); MYELOCYTES #M 0.2 10^3/ul (0.0-0.0); MYELOCYTES % (M) 1 % (0-0); PLATELET ESTIMATE SIG DECREASED; POIKILOCYTOSIS 1+ (0-0); POLYCHROMASIA 3+ (0-0); SEG NEUT #M 18.5 10^3/ul (1.6-7.5); SEGMENTED NEUTROPHILS (M) % 84 % (39-77); SMUDGE%M 8 % (0-0)
[2018-07-25] MEDS: AMIODARONE 200 MG TAB PO ×2 (08:54→21:11)
[2018-07-25] MEDS: DILTIAZEM (CD) 120 MG CAP PO (08:54)
[2018-07-25] MEDS: NICOTINE (7 MG/24 HR) PATCH TRANSDERM (09:27)
[2018-07-25 15:41] LABS: HEPATITIS B SURFACE ANTIGEN NEGATIVE (NEGATIVE)
[2018-07-25 15:58] LABS: HEPATITIS B SURFACE ANTIBODY NEGATIVE (NEGATIVE)
[2018-07-25 15:59] LABS: HEPATITIS B CORE ANTIBODY NEGATIVE (NEGATIVE); HEPATITIS C VIRAL ANTIBODY NEGATIVE (NEGATIVE)
[2018-07-25] MEDS: ATORVASTATIN 80 MG TAB PO (21:10)
[2018-07-26] MEDS: FUROSEMIDE 20 MG TAB PO (06:15)
[2018-07-26] MEDS: FAMOTIDINE 20 MG TAB PO ×2 (08:22→21:40)
[2018-07-26] MEDS: DILTIAZEM (CD) 120 MG CAP PO (08:22)
[2018-07-26] MEDS: NICOTINE (7 MG/24 HR) PATCH TRANSDERM (08:23)
[2018-07-26] MEDS: METHYLPREDNISOLONE 40 MG INJ IV (08:23)
[2018-07-26] MEDS: AMIODARONE 200 MG TAB PO ×2 (08:23→21:41)
[2018-07-26 08:29] LABS: ADD MAN DIFF? NO
[2018-07-26] MEDS: FUROSEMIDE 20 MG INJ IV (08:42)
[2018-07-26 08:46] LABS: ABNORMAL IP MESSAGE 1; BASOPHILS % 0.2 % (0.0-2.0); EOSINOPHILS # 0.1 10^3/ul (0.0-0.5); EOSINOPHILS % 0.5 % (0.0-7.0); HEMOGLOBIN 10.9 g/dl (14.0-18.0); LYMPHOCYTES % 18.4 % (15.0-51.0); MEAN CORPUSCULAR HEMOGLOBIN 29.8 pg (29.0-33.0); MEAN CORPUSCULAR HGB CONC 32.1 g/dl (32.0-37.0); MEAN CORPUSCULAR VOLUME 92.9 fl (82.0-101.0); MONOCYTE # 1.5 10^3/ul (0.3-0.9); MONOCYTES % 6.7 % (0.0-11.0); NEUTROPHIL # 15.5 10^3/ul (1.6-7.5); NEUTROPHILS % 70.5 % (39.0-77.0); NUCLEATED RED BLOOD CELLS% 0.1 /100WBC (0.0-0.0); POSITIVE DIFF @See below; RED BLOOD COUNT 3.66 10^6/ul (4.70-6.10); RED CELL DISTRIBUTION WIDTH 15.8 % (11.5-14.5)
[2018-07-26] MEDS: ACETAMINOPHEN 325 MG TAB PO (08:46)
[2018-07-26 09:03] LABS: PLATELET COUNT 30 10^3/UL (140-415)
[2018-07-26 09:14] LABS: ANION GAP 5 (5-13); BLOOD UREA NITROGEN 22 mg/dl (7-20); CALCIUM 8.5 mg/dl (8.4-10.2); CARBON DIOXIDE 34 mmol/L (21-31); CHLORIDE 101 mmol/L (97-110); CREATININE 0.68 mg/dl (0.61-1.24); Estimated GFR > 60 mL/min (>60); GLUCOSE 139 mg/dl (70-220); PHOSPHORUS 3.1 mg/dl (2.5-4.9); POTASSIUM 4.3 mmol/L (3.5-5.1); SODIUM 140 mmol/L (135-144)
[2018-07-26] MEDS: morphine 2 MG INJ IV ×3 (09:34→23:22)
[2018-07-26 10:17] LABS: ANISOCYTOSIS 1+ (0-0); LYMPHOCYTES #M 2.8 10^3/ul (0.8-2.9); LYMPHOCYTES % (M) 13 % (15-51); MONOCYTE #M 2.2 10^3/ul (0.3-0.9); MONOCYTES % (M) 10 % (0-11); PLATELET ESTIMATE SIG DECREASED; POIKILOCYTOSIS 1+ (0-0); POLYCHROMASIA 1+ (0-0); REACTIVE LYMPHOCYTES #M 0.2 10^3/ul (0.0-0.0); REACTIVE LYMPHOCYTES% (M) 1 % (0-0); SEGMENTED NEUTROPHILS (M) % 76 % (39-77); SMUDGE%M 11 % (0-0); SPHEROCYTES 1+ (0-0)
[2018-07-26] MEDS: HYDROCODONE/APAP (5/325) TAB PO (21:40)
[2018-07-26] MEDS: ATORVASTATIN 80 MG TAB PO (21:40)
[2018-07-27] MEDS: FUROSEMIDE 40 MG TAB PO (05:36)
[2018-07-27 07:18] LABS: ANION GAP 4 (5-13); BLOOD UREA NITROGEN 26 mg/dl (7-20); CALCIUM 8.1 mg/dl (8.4-10.2); CARBON DIOXIDE 36 mmol/L (21-31); CHLORIDE 100 mmol/L (97-110); CREATININE 0.76 mg/dl (0.61-1.24); Estimated GFR > 60 mL/min (>60); GLUCOSE 152 mg/dl (70-220); PHOSPHORUS 3.3 mg/dl (2.5-4.9); SODIUM 140 mmol/L (135-144)
[2018-07-27] MEDS: AMIODARONE 200 MG TAB PO ×2 (08:15→21:00)
[2018-07-27] MEDS: METHYLPREDNISOLONE 40 MG INJ IV (08:16)
[2018-07-27] MEDS: FAMOTIDINE 20 MG TAB PO ×2 (08:16→21:38)
[2018-07-27] MEDS: DILTIAZEM (CD) 120 MG CAP PO (08:16)
[2018-07-27] MEDS: NICOTINE (7 MG/24 HR) PATCH TRANSDERM (08:16)
[2018-07-27 08:54] LABS: ADD MAN DIFF? NO
[2018-07-27 09:08] LABS: ABNORMAL IP MESSAGE 1; BASOPHILS % 0.2 % (0.0-2.0); EOSINOPHILS % 0.2 % (0.0-7.0); HEMATOCRIT 33.8 % (42.0-52.0); HEMOGLOBIN 10.6 g/dl (14.0-18.0); LYMPHOCYTES # 3.3 10^3/ul (0.8-2.9); LYMPHOCYTES % 16.3 % (15.0-51.0); MEAN CORPUSCULAR HEMOGLOBIN 29.4 pg (29.0-33.0); MEAN CORPUSCULAR HGB CONC 31.4 g/dl (32.0-37.0); MEAN CORPUSCULAR VOLUME 93.9 fl (82.0-101.0); MEAN PLATELET VOLUME 12.6 fl (7.4-10.4); MONOCYTE # 1.4 10^3/ul (0.3-0.9); MONOCYTES % 6.9 % (0.0-11.0); NEUTROPHIL # 14.6 10^3/ul (1.6-7.5); NEUTROPHILS % 72.8 % (39.0-77.0); NUCLEATED RED BLOOD CELLS% 0.1 /100WBC (0.0-0.0); POSITIVE DIFF @See below; RED CELL DISTRIBUTION WIDTH 15.8 % (11.5-14.5)
[2018-07-27 09:11] LABS: PLATELET COUNT 37 10^3/UL (140-415)
[2018-07-27] MEDS ORDERED: GLUCOSE GEL 15 GRAM TUBE PO ×2 (10:30)
[2018-07-27] MEDS ORDERED: GLUCAGON 1 MG INJ IM (10:30)
[2018-07-27] MEDS ORDERED: GLUCOSE GEL 15 GRAM TUBE BUCCAL (10:30)
[2018-07-27] MEDS ORDERED: DEXTROSE 50% 50 ML SYRINGE IV ×2 (10:30)
[2018-07-27] MEDS: LINAGLIPTIN 5 MG TABLET PO (10:41)
[2018-07-27] MEDS: ACETAZOLAMIDE 500 MG INJ IV (11:40)
[2018-07-27] MEDS: ACCU-CHEK XX ×3 (11:46→21:35)
[2018-07-27] MEDS: ATORVASTATIN 80 MG TAB PO (21:38)
[2018-07-28] MEDS: FUROSEMIDE 40 MG TAB PO (05:05)
[2018-07-28 06:57] LABS: ADD MAN DIFF? NO
[2018-07-28 06:59] LABS: WHITE BLOOD COUNT 23.1 10^3/ul (4.8-10.8)
[2018-07-28 06:59] LABS: ABNORMAL IP MESSAGE 1; BASOPHIL # 0.1 10^3/ul (0.0-0.1); BASOPHILS % 0.2 % (0.0-2.0); EOSINOPHILS # 0.1 10^3/ul (0.0-0.5); EOSINOPHILS % 0.3 % (0.0-7.0); HEMATOCRIT 34.7 % (42.0-52.0); HEMOGLOBIN 10.9 g/dl (14.0-18.0); LYMPHOCYTES # 3.9 10^3/ul (0.8-2.9); LYMPHOCYTES % 16.7 % (15.0-51.0); MEAN CORPUSCULAR HEMOGLOBIN 29.3 pg (29.0-33.0); MEAN CORPUSCULAR HGB CONC 31.4 g/dl (32.0-37.0); MEAN CORPUSCULAR VOLUME 93.3 fl (82.0-101.0); MEAN PLATELET VOLUME 11.4 fl (7.4-10.4); MONOCYTE # 1.6 10^3/ul (0.3-0.9); MONOCYTES % 7.1 % (0.0-11.0); NEUTROPHIL # 16.7 10^3/ul (1.6-7.5); NEUTROPHILS % 72.4 % (39.0-77.0); NUCLEATED RED BLOOD CELLS% 0.1 /100WBC (0.0-0.0); PLATELET COUNT 52 10^3/UL (140-415); RED BLOOD COUNT 3.72 10^6/ul (4.70-6.10); RED CELL DISTRIBUTION WIDTH 16.2 % (11.5-14.5)
[2018-07-28 07:27] LABS: ANION GAP 6 (5-13); BLOOD UREA NITROGEN 22 mg/dl (7-20); CALCIUM 8.5 mg/dl (8.4-10.2); CARBON DIOXIDE 31 mmol/L (21-31); CHLORIDE 103 mmol/L (97-110); CREATININE 0.78 mg/dl (0.61-1.24); Estimated GFR > 60 mL/min (>60); GLUCOSE 126 mg/dl (70-220); MAGNESIUM 2.1 mg/dl (1.7-2.5); PHOSPHORUS 3.5 mg/dl (2.5-4.9); POTASSIUM 3.6 mmol/L (3.5-5.1); SODIUM 140 mmol/L (135-144)
[2018-07-28] MEDS: INSULIN ASPART [NOVOLOG] 3 ML PEN SC ×4 (07:55→21:00)
[2018-07-28] MEDS: ACCU-CHEK XX ×4 (08:08→21:00)
[2018-07-28] MEDS: LINAGLIPTIN 5 MG TABLET PO (08:09)
[2018-07-28] MEDS: ASPIRIN 81 MG TAB PO (09:16)
[2018-07-28] MEDS: FAMOTIDINE 20 MG TAB PO ×2 (09:16→22:14)
[2018-07-28] MEDS: POTASSIUM CHLORIDE 20 MEQ POWDER FOR ORAL SOLN PO (09:16)
[2018-07-28] MEDS: AMIODARONE 200 MG TAB PO (09:16)
[2018-07-28] MEDS: NICOTINE (7 MG/24 HR) PATCH TRANSDERM (09:16)
[2018-07-28] MEDS: DILTIAZEM (CD) 120 MG CAP PO (09:17)
[2018-07-28] MEDS: METHYLPREDNISOLONE 40 MG INJ IV (09:17)
[2018-07-28 15:17] LABS: HEPARIN INDUCED PLATELET AB POSITIVE (NEGATIVE)
[2018-07-28] MEDS: ATORVASTATIN 80 MG TAB PO (22:14)
[2018-07-29] MEDS: FUROSEMIDE 40 MG TAB PO (06:33)
[2018-07-29 07:02] LABS: ADD MAN DIFF? NO
[2018-07-29 07:10] LABS: ABNORMAL IP MESSAGE 1; BASOPHILS % 0.2 % (0.0-2.0); EOSINOPHILS % 0.2 % (0.0-7.0); HEMOGLOBIN 10.4 g/dl (14.0-18.0); LYMPHOCYTES # 2.8 10^3/ul (0.8-2.9); LYMPHOCYTES % 14.4 % (15.0-51.0); MEAN CORPUSCULAR HEMOGLOBIN 29.5 pg (29.0-33.0); MEAN CORPUSCULAR HGB CONC 31.5 g/dl (32.0-37.0); MEAN CORPUSCULAR VOLUME 93.8 fl (82.0-101.0); MEAN PLATELET VOLUME 11.7 fl (7.4-10.4); MONOCYTE # 1.4 10^3/ul (0.3-0.9); MONOCYTES % 7.1 % (0.0-11.0); NEUTROPHIL # 14.7 10^3/ul (1.6-7.5); NEUTROPHILS % 75.6 % (39.0-77.0); PLATELET COUNT 64 10^3/UL (140-415); POSITIVE DIFF @See below; RED BLOOD COUNT 3.52 10^6/ul (4.70-6.10); RED CELL DISTRIBUTION WIDTH 16.6 % (11.5-14.5)
[2018-07-29 07:10] LABS: WHITE BLOOD COUNT 19.4 10^3/ul (4.8-10.8)
[2018-07-29] MEDS: ACCU-CHEK XX ×4 (07:25→20:25)
[2018-07-29 07:29] LABS: ANION GAP 6 (5-13); BLOOD UREA NITROGEN 25 mg/dl (7-20); CALCIUM 8.1 mg/dl (8.4-10.2); CARBON DIOXIDE 31 mmol/L (21-31); CHLORIDE 103 mmol/L (97-110); CREATININE 0.78 mg/dl (0.61-1.24); Estimated GFR > 60 mL/min (>60); GLUCOSE 96 mg/dl (70-220); MAGNESIUM 2.1 mg/dl (1.7-2.5); PHOSPHORUS 3.8 mg/dl (2.5-4.9); POTASSIUM 3.9 mmol/L (3.5-5.1); SODIUM 140 mmol/L (135-144)
[2018-07-29] MEDS: INSULIN ASPART [NOVOLOG] 3 ML PEN SC ×4 (07:55→20:23)
[2018-07-29] MEDS: FAMOTIDINE 20 MG TAB PO ×2 (08:30→20:17)
[2018-07-29] MEDS: AMIODARONE 200 MG TAB PO (08:30)
[2018-07-29] MEDS: LINAGLIPTIN 5 MG TABLET PO (08:30)
[2018-07-29] MEDS: DILTIAZEM (CD) 120 MG CAP PO (08:30)
[2018-07-29] MEDS: ASPIRIN 81 MG TAB PO (08:30)
[2018-07-29] MEDS: NICOTINE (7 MG/24 HR) PATCH TRANSDERM (08:31)
[2018-07-29] MEDS: APIXABAN 5 MG TABLET PO ×2 (08:31→20:17)
[2018-07-29] MEDS: METHYLPREDNISOLONE 40 MG INJ IV (08:31)
[2018-07-29] MEDS: ATORVASTATIN 80 MG TAB PO (20:17)
[2018-07-30] MEDS: FUROSEMIDE 40 MG TAB PO (05:25)
[2018-07-30 06:53] LABS: ADD MAN DIFF? NO
[2018-07-30 06:57] LABS: WHITE BLOOD COUNT 19.1 10^3/ul (4.8-10.8)
[2018-07-30 06:57] LABS: ABNORMAL IP MESSAGE 1; BASOPHILS % 0.1 % (0.0-2.0); EOSINOPHILS % 0.2 % (0.0-7.0); HEMATOCRIT 36.1 % (42.0-52.0); HEMOGLOBIN 11.4 g/dl (14.0-18.0); LYMPHOCYTES # 3.1 10^3/ul (0.8-2.9); LYMPHOCYTES % 16.4 % (15.0-51.0); MEAN CORPUSCULAR HEMOGLOBIN 29.2 pg (29.0-33.0); MEAN CORPUSCULAR HGB CONC 31.6 g/dl (32.0-37.0); MEAN CORPUSCULAR VOLUME 92.6 fl (82.0-101.0); MEAN PLATELET VOLUME 10.9 fl (7.4-10.4); MONOCYTE # 1.1 10^3/ul (0.3-0.9); MONOCYTES % 5.9 % (0.0-11.0); NEUTROPHIL # 14.5 10^3/ul (1.6-7.5); NEUTROPHILS % 75.9 % (39.0-77.0); PLATELET COUNT 88 10^3/UL (140-415); POSITIVE DIFF @See below; RED CELL DISTRIBUTION WIDTH 16.8 % (11.5-14.5)
[2018-07-30] MEDS: ACCU-CHEK XX ×3 (07:25→18:22)
[2018-07-30 07:26] LABS: ANION GAP 5 (5-13); BLOOD UREA NITROGEN 26 mg/dl (7-20); CALCIUM 8.5 mg/dl (8.4-10.2); CARBON DIOXIDE 31 mmol/L (21-31); CHLORIDE 105 mmol/L (97-110); CREATININE 0.68 mg/dl (0.61-1.24); Estimated GFR > 60 mL/min (>60); GLUCOSE 102 mg/dl (70-220); MAGNESIUM 2.1 mg/dl (1.7-2.5); PHOSPHORUS 3.9 mg/dl (2.5-4.9); SODIUM 141 mmol/L (135-144)
[2018-07-30] MEDS: INSULIN ASPART [NOVOLOG] 3 ML PEN SC ×3 (07:55→18:29)
[2018-07-30] MEDS: NICOTINE (7 MG/24 HR) PATCH TRANSDERM (08:50)
[2018-07-30] MEDS: DILTIAZEM (CD) 120 MG CAP PO (08:51)
[2018-07-30] MEDS: METHYLPREDNISOLONE 40 MG INJ IV (08:51)
[2018-07-30] MEDS: AMIODARONE 200 MG TAB PO (08:51)
[2018-07-30] MEDS: LINAGLIPTIN 5 MG TABLET PO (08:51)
[2018-07-30] MEDS: FAMOTIDINE 20 MG TAB PO (08:51)
[2018-07-30] MEDS: APIXABAN 5 MG TABLET PO (08:51)
[2018-07-30] MEDS: ASPIRIN 81 MG TAB PO (08:51)
[2018-07-30] MEDS: ALBUTEROL/IPRATROPIUM (NEB) 3 ML AMP HHN (13:30)
[2018-07-30 14:35] LABS: AADO2 Arterial 46.6 mmHg (7.0-24.0); Allen Test ACCEPTAB; Arterial Base Excess 5.3 mmol/L (-3.0-3); Arterial Blood Gas Oxygen Sat 88.4 mmHG (95.0-98.0); Arterial COHb 1.1 % (0.0-3.0); Arterial Fraction of Oxyhgb 87.3 % (93.0-99.0); Arterial HCO3 29.1 mmol/L (22.0-26.0); Arterial MetHb 0.2 % (0.0-1.5); Arterial pCO2 39.7 mmhg (35-45); MODE ROOM AIR; Site Right Radial
== END 2018-07-30 20:30 | disposition home or self-care (01) | DRG 871 ==
LOC: TEL 07-21 06:18 → E/R 03:28 → ICU 05:07
PROC: 5A09357 Assistance with Respiratory Ventilation, Less than 24 Consecutive Hours, Continuous Positive Airway Pressure (ICD-10-PCS; 2018-07-16)
PROC: 0W9B3ZZ Drainage of Left Pleural Cavity, Percutaneous Approach (ICD-10-PCS; principal; 2018-07-20)
DX: A41.9 Sepsis, unspecified organism (principal); J18.9 Pneumonia, unspecified organism; I50.33 Acute on chronic diastolic (congestive) heart failure; J96.01 Acute respiratory failure with hypoxia; J44.1 Chronic obstructive pulmonary disease with (acute) exacerbation; I48.92 Unspecified atrial flutter; E87.3 Alkalosis; J90 Pleural effusion, not elsewhere classified; J98.11 Atelectasis; R65.20 Severe sepsis without septic shock; D64.9 Anemia, unspecified; E78.5 Hyperlipidemia, unspecified; E11.9 Type 2 diabetes mellitus without complications; E87.6 Hypokalemia; F17.210 Nicotine dependence, cigarettes, uncomplicated; G47.33 Obstructive sleep apnea (adult) (pediatric); I11.0 Hypertensive heart disease with heart failure; I25.10 Atherosclerotic heart disease of native coronary artery without angina pectoris; I48.0 Paroxysmal atrial fibrillation; D69.59 Other secondary thrombocytopenia; T45.515A Adverse effect of anticoagulants, initial encounter; R55 Syncope and collapse; R53.81 Other malaise; E66.01 Morbid (severe) obesity due to excess calories; Z68.38 Body mass index [BMI] 38.0-38.9, adult; Z95.5 Presence of coronary angioplasty implant and graft; Z95.1 Presence of aortocoronary bypass graft; Z95.2 Presence of prosthetic heart valve
CPT/HCPCS: 32555; 36415; 36600; 71045; 71275; 80048; 80076; 80202; 81001; 81003; 82043; 82803; 82962; 83615; 83735; 83880; 84100; 84155; 84157; 84300; 84484; 85025; 85378; 85384; 85610; 85730; 86022; 86704; 86706; 86803; 87040-91; 87070; 87081; 87102; 87116; 87340; 93005; 93306; 93970; 94660; 94664; 96374; 97161; 99291-25

== ENCOUNTER 2018-10-05 12:51 | Inpatient (IN) | payer OTHER ==
[2018-10-05 16:54] LABS: ABNORMAL IP MESSAGE 1; HEMATOCRIT 22.6 % (42.0-52.0); MEAN CORPUSCULAR HEMOGLOBIN 24.7 pg (29.0-33.0); MEAN CORPUSCULAR HGB CONC 30.1 g/dl (32.0-37.0); MEAN CORPUSCULAR VOLUME 82.2 fl (82.0-101.0); MEAN PLATELET VOLUME 8.7 fl (7.4-10.4); PLATELET COUNT 321 10^3/UL (140-415); POSITIVE DIFF @See below; RED BLOOD COUNT 2.75 10^6/ul (4.70-6.10); RED CELL DISTRIBUTION WIDTH 16.1 % (11.5-14.5)
[2018-10-05 16:54] LABS: WHITE BLOOD COUNT 10.5 10^3/ul (4.8-10.8)
[2018-10-05 17:01] LABS: ADD MAN DIFF? YES; HEMOGLOBIN 6.8 g/dl (14.0-18.0)
[2018-10-05 17:14] LABS: INR 1.17; PT RATIO 1.2
[2018-10-05 17:15] LABS: ANION GAP 11 (5-13); BLOOD UREA NITROGEN 19 mg/dl (7-20); CALCIUM 9.1 mg/dl (8.4-10.2); CARBON DIOXIDE 29 mmol/L (21-31); CHLORIDE 102 mmol/L (97-110); CREATININE 0.91 mg/dl (0.61-1.24); Estimated GFR > 60 mL/min (>60); GLUCOSE 95 mg/dl (70-220); PARTIAL THROMBOPLASTIN TIME 28.5 Sec (23.0-35.0); POTASSIUM 3.6 mmol/L (3.5-5.1); SODIUM 142 mmol/L (135-144)
[2018-10-05 17:27] LABS: TROPONIN-I 0.087 ng/ml (0.000-0.120)
[2018-10-05 17:53] LABS: ANISOCYTOSIS 1+ (0-0); EOSINOPHILS % (M) 1 % (0-7); LYMPHOCYTES #M 1.4 10^3/ul (0.8-2.9); LYMPHOCYTES % (M) 14 % (15-51); MONOCYTE #M 0.9 10^3/ul (0.3-0.9); MONOCYTES % (M) 9 % (0-11); POIKILOCYTOSIS 1+ (0-0); POLYCHROMASIA 1+ (0-0); REACTIVE LYMPHOCYTES #M 0.3 10^3/ul (0.0-0.0); REACTIVE LYMPHOCYTES% (M) 3 % (0-0); SEGMENTED NEUTROPHILS (M) % 72 % (39-77); SMUDGE%M 17 % (0-0)
[2018-10-05] MEDS: SOD CHLORIDE 0.9% 0 ML IV (17:55)
[2018-10-05] MEDS ORDERED: ACETAMINOPHEN 325 MG TAB PO (18:30)
[2018-10-05] MEDS ORDERED: ONDANSETRON 4 MG INJ IV (18:30)
[2018-10-05] MEDS: DIPHENHYDRAMINE 50 MG INJ IV ×2 (18:55→19:51)
[2018-10-05] MEDS: FUROSEMIDE 40 MG INJ IV (18:56)
[2018-10-05 19:13] LABS: OCCULT BLOOD STOOL POSITIVE (NEGATIVE)
[2018-10-05 19:35] LABS: IMMEDIATE SPIN CROSSMATCH 1 2
[2018-10-05] MEDS: LORAZEPAM 2 MG INJ IV (20:25)
[2018-10-06] MEDS ORDERED: NITROGLYCERIN (SL) 0.4 MG TAB SL (01:30)
[2018-10-06] MEDS ORDERED: morphine 2 MG INJ IV (01:30)
[2018-10-06 03:23] LABS: TROPONIN-I 0.057 ng/ml (0.000-0.120)
[2018-10-06] MEDS ORDERED: ACETAMINOPHEN 325 MG TAB PO (08:00)
[2018-10-06] MEDS ORDERED: DEXTROSE 50% 50 ML SYRINGE IV ×4 (08:30→23:45)
[2018-10-06] MEDS ORDERED: GLUCOSE GEL 15 GRAM TUBE BUCCAL ×2 (08:30→23:45)
[2018-10-06] MEDS ORDERED: GLUCAGON 1 MG INJ IM ×2 (08:30→23:45)
[2018-10-06] MEDS ORDERED: GLUCOSE GEL 15 GRAM TUBE PO ×4 (08:30→23:45)
[2018-10-06] MEDS: LINAGLIPTIN 5 MG TABLET PO (08:41)
[2018-10-06] MEDS: AMIODARONE 200 MG TAB PO (08:41)
[2018-10-06] MEDS: FUROSEMIDE 40 MG TAB PO ×2 (08:41→17:43)
[2018-10-06] MEDS: IPRATROPIUM (HFA) 12.9 GM INHALER INH ×3 (10:37→17:43)
[2018-10-06 10:50] LABS: ADD MAN DIFF? NO
[2018-10-06 10:57] LABS: BASOPHIL # 0.1 10^3/ul (0.0-0.1); BASOPHILS % 0.7 % (0.0-2.0); EOSINOPHILS # 0.3 10^3/ul (0.0-0.5); EOSINOPHILS % 4.1 % (0.0-7.0); HEMOGLOBIN 8.2 g/dl (14.0-18.0); LYMPHOCYTES # 1.5 10^3/ul (0.8-2.9); LYMPHOCYTES % 17.6 % (15.0-51.0); MEAN CORPUSCULAR HEMOGLOBIN 26.5 pg (29.0-33.0); MEAN CORPUSCULAR HGB CONC 31.5 g/dl (32.0-37.0); MEAN CORPUSCULAR VOLUME 83.9 fl (82.0-101.0); MONOCYTE # 0.7 10^3/ul (0.3-0.9); MONOCYTES % 8.4 % (0.0-11.0); NEUTROPHIL # 5.7 10^3/ul (1.6-7.5); NEUTROPHILS % 68.8 % (39.0-77.0); PLATELET COUNT 283 10^3/UL (140-415); RED CELL DISTRIBUTION WIDTH 15.8 % (11.5-14.5)
[2018-10-06 10:57] LABS: WHITE BLOOD COUNT 8.2 10^3/ul (4.8-10.8)
[2018-10-06 11:17] LABS: ALANINE AMINOTRANSFERASE 16 IU/L (13-69); ALBUMIN 3.5 g/dl (3.3-4.9); ALKALINE PHOSPHATASE 88 IU/L (42-121); ASPARTATE AMINO TRANSFERASE 23 IU/L (15-46); BILIRUBIN,INDIRECT 1.3 mg/dl (0-1.1); BILIRUBIN,TOTAL 1.3 mg/dl (0.2-1.3)
[2018-10-06 11:21] LABS: ANION GAP 8 (5-13); BLOOD UREA NITROGEN 19 mg/dl (7-20); CALCIUM 8.6 mg/dl (8.4-10.2); CARBON DIOXIDE 31 mmol/L (21-31); CHLORIDE 103 mmol/L (97-110); CREATININE 0.93 mg/dl (0.61-1.24); Estimated GFR > 60 mL/min (>60); GLUCOSE 122 mg/dl (70-220); POTASSIUM 3.6 mmol/L (3.5-5.1); SODIUM 142 mmol/L (135-144)
[2018-10-06] MEDS: ACCU-CHEK XX ×3 (11:37→21:46)
[2018-10-06] MEDS: LIDOCAINE 1% (MPF) 5 ML VIAL (17:13)
[2018-10-06] MEDS: PANTOPRAZOLE (EC) 40 MG TAB PO (17:43)
[2018-10-06 17:52] LABS: FLUID LD 1046 U/L
[2018-10-06 17:53] LABS: FLUID GLUCOSE 98 mg/dl; FLUID TOTAL PROTEIN 5.6 g/dl; FLUID TYPE PLEURAL FLUID
[2018-10-06] MEDS ORDERED: FUROSEMIDE 40 MG INJ IV (18:00)
[2018-10-06 18:01] LABS: FLD MN% 88.6 %; FLD PMN% 11.4 %; FLD RBC 217000 /uL; FLD WBC 3104 /cmm
[2018-10-06 18:12] LABS: FLD TYPE PLEURAL
[2018-10-06 18:12] LABS: FLD CLARITY BLOODY; FLD COLOR RED
[2018-10-06] MEDS: ATORVASTATIN 80 MG TAB PO (21:40)
[2018-10-07] MEDS: DEXTROSE 5%-0.45% NACL 1,000 ML IV (00:23)
[2018-10-07] MEDS: ACCU-CHEK XX ×6 (00:24→20:49)
[2018-10-07] MEDS: INSULIN ASPART [NOVOLOG] 3 ML PEN SC ×6 (00:24→20:49)
[2018-10-07] MEDS ORDERED: ACCU-CHEK XX (02:00)
[2018-10-07 06:50] LABS: ADD MAN DIFF? NO
[2018-10-07 06:56] LABS: WHITE BLOOD COUNT 8.6 10^3/ul (4.8-10.8)
[2018-10-07 06:56] LABS: BASOPHIL # 0.1 10^3/ul (0.0-0.1); BASOPHILS % 0.6 % (0.0-2.0); EOSINOPHILS # 0.4 10^3/ul (0.0-0.5); EOSINOPHILS % 5.1 % (0.0-7.0); HEMATOCRIT 25.2 % (42.0-52.0); HEMOGLOBIN 7.9 g/dl (14.0-18.0); LYMPHOCYTES # 1.7 10^3/ul (0.8-2.9); LYMPHOCYTES % 19.5 % (15.0-51.0); MEAN CORPUSCULAR HEMOGLOBIN 26.2 pg (29.0-33.0); MEAN CORPUSCULAR HGB CONC 31.3 g/dl (32.0-37.0); MEAN CORPUSCULAR VOLUME 83.7 fl (82.0-101.0); MEAN PLATELET VOLUME 8.8 fl (7.4-10.4); MONOCYTE # 0.8 10^3/ul (0.3-0.9); MONOCYTES % 9.8 % (0.0-11.0); NEUTROPHIL # 5.6 10^3/ul (1.6-7.5); NEUTROPHILS % 64.7 % (39.0-77.0); PLATELET COUNT 264 10^3/UL (140-415); RED BLOOD COUNT 3.01 10^6/ul (4.70-6.10); RED CELL DISTRIBUTION WIDTH 16.1 % (11.5-14.5)
[2018-10-07 07:18] LABS: ANION GAP 8 (5-13); BLOOD UREA NITROGEN 17 mg/dl (7-20); CALCIUM 8.1 mg/dl (8.4-10.2); CARBON DIOXIDE 29 mmol/L (21-31); CHLORIDE 104 mmol/L (97-110); Estimated GFR > 60 mL/min (>60); GLUCOSE 97 mg/dl (70-220); PHOSPHORUS 4.4 mg/dl (2.5-4.9); POTASSIUM 3.4 mmol/L (3.5-5.1); SODIUM 141 mmol/L (135-144)
[2018-10-07] MEDS: PANTOPRAZOLE (EC) 40 MG TAB PO ×2 (07:51→17:41)
[2018-10-07] MEDS: FUROSEMIDE 40 MG TAB PO ×2 (07:53→17:42)
[2018-10-07] MEDS ORDERED: INSULIN ASPART [NOVOLOG] 3 ML PEN SC (07:55)
[2018-10-07] MEDS: LINAGLIPTIN 5 MG TABLET PO (09:00)
[2018-10-07] MEDS: AMIODARONE 200 MG TAB PO (09:00)
[2018-10-07] MEDS: IPRATROPIUM (HFA) 12.9 GM INHALER INH ×7 (09:00→21:00)
[2018-10-07] MEDS: POTASSIUM CHLORIDE 100 ML IVPB ×2 (09:25→12:22)
[2018-10-07] MEDS ORDERED: ETOMIDATE 20 MG INJ (15:30)
[2018-10-07] MEDS ORDERED: PROPOFOL 20 ML (15:30)
[2018-10-07] MEDS ORDERED: MEPERIDINE 25 MG INJ IV (16:00)
[2018-10-07] MEDS ORDERED: EPHEDrine 25 MG/5 ML SYG IV (16:00)
[2018-10-07] MEDS ORDERED: EPINEPHrine 0.1 MG/ML SYG (16:05)
[2018-10-07] MEDS ORDERED: PHENYLephrine (100 MCG/ML) 10ML SYG (16:05)
[2018-10-07] MEDS: ATORVASTATIN 80 MG TAB PO (20:43)
[2018-10-07] MEDS: PEG/ELECTROLYTES 4L BTL PO (20:44)
[2018-10-08] MEDS: DEXTROSE 5%-0.45% NACL 1,000 ML IV ×2 (00:15→20:04)
[2018-10-08] MEDS: IPRATROPIUM (HFA) 12.9 GM INHALER INH ×6 (01:00→20:03)
[2018-10-08] MEDS: INSULIN ASPART [NOVOLOG] 3 ML PEN SC ×6 (01:00→20:03)
[2018-10-08] MEDS: ACCU-CHEK XX ×6 (01:45→20:04)
[2018-10-08] MEDS: FUROSEMIDE 40 MG TAB PO ×2 (05:43→17:56)
[2018-10-08] MEDS: PANTOPRAZOLE (EC) 40 MG TAB PO ×2 (05:43→17:56)
[2018-10-08 06:56] LABS: ADD MAN DIFF? NO
[2018-10-08 06:59] LABS: WHITE BLOOD COUNT 8.3 10^3/ul (4.8-10.8)
[2018-10-08 06:59] LABS: BASOPHILS % 0.5 % (0.0-2.0); EOSINOPHILS # 0.5 10^3/ul (0.0-0.5); EOSINOPHILS % 5.9 % (0.0-7.0); HEMATOCRIT 26.1 % (42.0-52.0); HEMOGLOBIN 8.2 g/dl (14.0-18.0); LYMPHOCYTES # 1.7 10^3/ul (0.8-2.9); LYMPHOCYTES % 20.5 % (15.0-51.0); MEAN CORPUSCULAR HEMOGLOBIN 26.5 pg (29.0-33.0); MEAN CORPUSCULAR HGB CONC 31.4 g/dl (32.0-37.0); MEAN CORPUSCULAR VOLUME 84.2 fl (82.0-101.0); MEAN PLATELET VOLUME 8.7 fl (7.4-10.4); MONOCYTE # 0.8 10^3/ul (0.3-0.9); MONOCYTES % 9.7 % (0.0-11.0); NEUTROPHIL # 5.3 10^3/ul (1.6-7.5); NEUTROPHILS % 63.2 % (39.0-77.0); PLATELET COUNT 284 10^3/UL (140-415); RED CELL DISTRIBUTION WIDTH 16.2 % (11.5-14.5)
[2018-10-08 07:36] LABS: ANION GAP 8 (5-13); BLOOD UREA NITROGEN 15 mg/dl (7-20); CALCIUM 8.3 mg/dl (8.4-10.2); CARBON DIOXIDE 29 mmol/L (21-31); CHLORIDE 105 mmol/L (97-110); CREATININE 0.82 mg/dl (0.61-1.24); Estimated GFR > 60 mL/min (>60); GLUCOSE 94 mg/dl (70-220); MAGNESIUM 1.9 mg/dl (1.7-2.5); PHOSPHORUS 3.8 mg/dl (2.5-4.9); POTASSIUM 3.5 mmol/L (3.5-5.1); SODIUM 142 mmol/L (135-144)
[2018-10-08] MEDS: AMIODARONE 200 MG TAB PO (08:29)
[2018-10-08] MEDS: LINAGLIPTIN 5 MG TABLET PO (08:29)
[2018-10-08] MEDS ORDERED: ALBUMIN HUMAN 5% 250 ML (09:53)
[2018-10-08] MEDS ORDERED: PHENYLephrine (100 MCG/ML) 10ML SYG (09:53)
[2018-10-08] MEDS ORDERED: DIPHENHYDRAMINE 50 MG INJ IV (10:00)
[2018-10-08] MEDS ORDERED: EPHEDrine 25 MG/5 ML SYG IV ×2 (10:00)
[2018-10-08] MEDS ORDERED: METOCLOPRAMIDE 10 MG INJ IV (10:00)
[2018-10-08] MEDS ORDERED: ALBUTEROL 0.083% (NEB) 2.5 MG/3 ML AMP HHN (10:00)
[2018-10-08] MEDS ORDERED: hydrALAzine 20 MG INJ IV (10:00)
[2018-10-08] MEDS ORDERED: ONDANSETRON 4 MG INJ IV ×2 (10:00)
[2018-10-08] MEDS ORDERED: LABETALOL HCL 20MG INJ IV (10:00)
[2018-10-08] MEDS ORDERED: FENTAnyl 50 MCG/ML VIAL IV ×2 (10:00)
[2018-10-08] MEDS ORDERED: MEPERIDINE 25 MG INJ IV (10:00)
[2018-10-08] MEDS: ALBUMIN HUMAN 5% 250 ML IV (10:05)
[2018-10-08] MEDS ORDERED: PROPOFOL 200 MG INJ (10:47)
[2018-10-08] MEDS ORDERED: LIDOCAINE 2% (SDV) 5 ML INJ (10:47)
[2018-10-08] MEDS: ATORVASTATIN 80 MG TAB PO (20:03)
[2018-10-09] MEDS: IPRATROPIUM (HFA) 12.9 GM INHALER INH ×6 (01:00→20:06)
[2018-10-09] MEDS: ACCUCHECK AT 2AM (Patients on SS coverage) XX (01:28)
[2018-10-09] MEDS: PANTOPRAZOLE (EC) 40 MG TAB PO ×2 (06:21→17:19)
[2018-10-09] MEDS: FUROSEMIDE 40 MG TAB PO ×2 (06:21→17:18)
[2018-10-09 06:53] LABS: ADD MAN DIFF? NO
[2018-10-09 07:03] LABS: WHITE BLOOD COUNT 7.5 10^3/ul (4.8-10.8)
[2018-10-09 07:03] LABS: BASOPHILS % 0.5 % (0.0-2.0); EOSINOPHILS # 0.4 10^3/ul (0.0-0.5); EOSINOPHILS % 5.6 % (0.0-7.0); HEMOGLOBIN 7.9 g/dl (14.0-18.0); LYMPHOCYTES # 1.7 10^3/ul (0.8-2.9); LYMPHOCYTES % 23.2 % (15.0-51.0); MEAN CORPUSCULAR HEMOGLOBIN 25.3 pg (29.0-33.0); MEAN CORPUSCULAR HGB CONC 30.4 g/dl (32.0-37.0); MEAN CORPUSCULAR VOLUME 83.3 fl (82.0-101.0); MEAN PLATELET VOLUME 8.7 fl (7.4-10.4); MONOCYTE # 0.7 10^3/ul (0.3-0.9); MONOCYTES % 9.5 % (0.0-11.0); NEUTROPHIL # 4.6 10^3/ul (1.6-7.5); NEUTROPHILS % 60.9 % (39.0-77.0); PLATELET COUNT 264 10^3/UL (140-415); RED BLOOD COUNT 3.12 10^6/ul (4.70-6.10); RED CELL DISTRIBUTION WIDTH 16.6 % (11.5-14.5)
[2018-10-09] MEDS ORDERED: INSULIN ASPART [NOVOLOG] 3 ML PEN SC (07:25)
[2018-10-09] MEDS: Insulin NOVOLOG SS MILD Algorithm (SS with meals and bedtime) SC ×4 (07:25→20:06)
[2018-10-09] MEDS: LINAGLIPTIN 5 MG TABLET PO (08:21)
[2018-10-09] MEDS: AMIODARONE 200 MG TAB PO (08:23)
[2018-10-09] MEDS: PEG/ELECTROLYTES 4L BTL PO (17:21)
[2018-10-09] MEDS: ATORVASTATIN 80 MG TAB PO (20:07)
[2018-10-10] MEDS: IPRATROPIUM (HFA) 12.9 GM INHALER INH ×6 (01:00→21:00)
[2018-10-10] MEDS: ACCUCHECK AT 2AM (Patients on SS coverage) XX (01:49)
[2018-10-10] MEDS: FUROSEMIDE 40 MG TAB PO ×2 (06:10→17:29)
[2018-10-10] MEDS: PANTOPRAZOLE (EC) 40 MG TAB PO ×2 (06:10→17:29)
[2018-10-10 07:31] LABS: ADD MAN DIFF? NO
[2018-10-10 07:39] LABS: BASOPHILS % 0.4 % (0.0-2.0); EOSINOPHILS # 0.3 10^3/ul (0.0-0.5); EOSINOPHILS % 4.7 % (0.0-7.0); HEMOGLOBIN 8.6 g/dl (14.0-18.0); LYMPHOCYTES # 1.6 10^3/ul (0.8-2.9); LYMPHOCYTES % 22.9 % (15.0-51.0); MEAN CORPUSCULAR HEMOGLOBIN 25.7 pg (29.0-33.0); MEAN CORPUSCULAR HGB CONC 30.7 g/dl (32.0-37.0); MEAN CORPUSCULAR VOLUME 83.6 fl (82.0-101.0); MEAN PLATELET VOLUME 8.8 fl (7.4-10.4); MONOCYTE # 0.7 10^3/ul (0.3-0.9); MONOCYTES % 9.7 % (0.0-11.0); NEUTROPHIL # 4.2 10^3/ul (1.6-7.5); NEUTROPHILS % 61.9 % (39.0-77.0); PLATELET COUNT 296 10^3/UL (140-415); RED BLOOD COUNT 3.35 10^6/ul (4.70-6.10); RED CELL DISTRIBUTION WIDTH 16.5 % (11.5-14.5)
[2018-10-10 07:39] LABS: WHITE BLOOD COUNT 6.8 10^3/ul (4.8-10.8)
[2018-10-10] MEDS: INSULIN ASPART [NOVOLOG] 3 ML PEN SC ×5 (07:49→21:00)
[2018-10-10 08:06] LABS: ANION GAP 8 (5-13); BLOOD UREA NITROGEN 8 mg/dl (7-20); CALCIUM 8.4 mg/dl (8.4-10.2); CARBON DIOXIDE 29 mmol/L (21-31); CHLORIDE 105 mmol/L (97-110); CREATININE 0.76 mg/dl (0.61-1.24); Estimated GFR > 60 mL/min (>60); GLUCOSE 91 mg/dl (70-220); MAGNESIUM 1.9 mg/dl (1.7-2.5); PHOSPHORUS 3.7 mg/dl (2.5-4.9); SODIUM 142 mmol/L (135-144)
[2018-10-10] MEDS: LIDOCAINE 100 MG SYRINGE (11:56)
[2018-10-10] MEDS: PROPOFOL 40 ML (11:56)
[2018-10-10] MEDS: POTASSIUM CHLORIDE 100 ML IVPB ×2 (13:41→17:29)
[2018-10-10] MEDS: AMIODARONE 200 MG TAB PO (13:41)
[2018-10-10] MEDS: LINAGLIPTIN 5 MG TABLET PO (13:42)
[2018-10-10] MEDS: ATORVASTATIN 80 MG TAB PO (21:07)
[2018-10-11] MEDS: INSULIN ASPART [NOVOLOG] 3 ML PEN SC ×4 (01:00→11:38)
[2018-10-11] MEDS: IPRATROPIUM (HFA) 12.9 GM INHALER INH ×4 (01:00→11:38)
[2018-10-11] MEDS: ACCUCHECK AT 2AM (Patients on SS coverage) XX (02:00)
[2018-10-11] MEDS: PANTOPRAZOLE (EC) 40 MG TAB PO (05:11)
[2018-10-11] MEDS: FUROSEMIDE 40 MG TAB PO (05:11)
[2018-10-11 07:08] LABS: ADD MAN DIFF? NO
[2018-10-11 07:11] LABS: BASOPHILS % 0.4 % (0.0-2.0); EOSINOPHILS # 0.3 10^3/ul (0.0-0.5); EOSINOPHILS % 4.1 % (0.0-7.0); HEMATOCRIT 27.4 % (42.0-52.0); HEMOGLOBIN 8.4 g/dl (14.0-18.0); LYMPHOCYTES # 1.5 10^3/ul (0.8-2.9); LYMPHOCYTES % 21.4 % (15.0-51.0); MEAN CORPUSCULAR HEMOGLOBIN 25.8 pg (29.0-33.0); MEAN CORPUSCULAR HGB CONC 30.7 g/dl (32.0-37.0); MEAN CORPUSCULAR VOLUME 84.3 fl (82.0-101.0); MEAN PLATELET VOLUME 8.7 fl (7.4-10.4); MONOCYTE # 0.6 10^3/ul (0.3-0.9); MONOCYTES % 9.3 % (0.0-11.0); NEUTROPHIL # 4.4 10^3/ul (1.6-7.5); NEUTROPHILS % 64.5 % (39.0-77.0); PLATELET COUNT 266 10^3/UL (140-415); RED BLOOD COUNT 3.25 10^6/ul (4.70-6.10); RED CELL DISTRIBUTION WIDTH 16.3 % (11.5-14.5)
[2018-10-11 07:11] LABS: WHITE BLOOD COUNT 6.8 10^3/ul (4.8-10.8)
[2018-10-11 07:35] LABS: ANION GAP 8 (5-13); BLOOD UREA NITROGEN 10 mg/dl (7-20); CALCIUM 8.5 mg/dl (8.4-10.2); CARBON DIOXIDE 31 mmol/L (21-31); CHLORIDE 105 mmol/L (97-110); CREATININE 0.79 mg/dl (0.61-1.24); Estimated GFR > 60 mL/min (>60); GLUCOSE 98 mg/dl (70-220); MAGNESIUM 1.7 mg/dl (1.7-2.5); PHOSPHORUS 4.5 mg/dl (2.5-4.9); POTASSIUM 3.3 mmol/L (3.5-5.1); SODIUM 144 mmol/L (135-144)
[2018-10-11] MEDS: AMIODARONE 200 MG TAB PO (08:03)
[2018-10-11] MEDS: LINAGLIPTIN 5 MG TABLET PO (08:03)
[2018-10-11] MEDS: POTASSIUM CHLORIDE (SR) 20 MEQ TAB PO (09:58)
== END 2018-10-11 13:30 | disposition home or self-care (01) | DRG 377 ==
LOC: E/R 12:51 → TEL 18:12
PROC: 30233N1 Transfusion of Nonautologous Red Blood Cells into Peripheral Vein, Percutaneous Approach (ICD-10-PCS; principal; 2018-10-07 13:57)
PROC: 0W9B3ZX Drainage of Left Pleural Cavity, Percutaneous Approach, Diagnostic (ICD-10-PCS; 2018-10-07 13:57)
PROC: 0DBK8ZX Excision of Ascending Colon, Via Natural or Artificial Opening Endoscopic, Diagnostic (ICD-10-PCS; 2018-10-07 13:57)
PROC: 0DBL8ZX Excision of Transverse Colon, Via Natural or Artificial Opening Endoscopic, Diagnostic (ICD-10-PCS; 2018-10-07 13:57)
PROC: 0DBM8ZX Excision of Descending Colon, Via Natural or Artificial Opening Endoscopic, Diagnostic (ICD-10-PCS; 2018-10-07 13:57)
PROC: 0DB68ZX Excision of Stomach, Via Natural or Artificial Opening Endoscopic, Diagnostic (ICD-10-PCS; 2018-10-07 13:57)
DX: K92.2 Gastrointestinal hemorrhage, unspecified (principal); J96.00 Acute respiratory failure, unspecified whether with hypoxia or hypercapnia; I50.33 Acute on chronic diastolic (congestive) heart failure; J90 Pleural effusion, not elsewhere classified; I48.92 Unspecified atrial flutter; D62 Acute posthemorrhagic anemia; D69.6 Thrombocytopenia, unspecified; I48.2 Chronic atrial fibrillation; D75.82 Heparin induced thrombocytopenia (HIT); I11.0 Hypertensive heart disease with heart failure; E11.9 Type 2 diabetes mellitus without complications; D64.9 Anemia, unspecified; K92.1 Melena; I25.10 Atherosclerotic heart disease of native coronary artery without angina pectoris; E66.9 Obesity, unspecified; Z68.31 Body mass index [BMI] 31.0-31.9, adult; J44.9 Chronic obstructive pulmonary disease, unspecified; E78.5 Hyperlipidemia, unspecified; K29.70 Gastritis, unspecified, without bleeding; Z79.4 Long term (current) use of insulin; Z87.891 Personal history of nicotine dependence; Z95.1 Presence of aortocoronary bypass graft
CPT/HCPCS: 36415; 36430; 71045; 76942; 80048; 80076; 82270; 82945; 82962; 83615; 83735; 84100; 84157; 84484; 85025; 85610; 85730; 86850; 86900; 86901; 86920; 88104; 88305; 89051; 93005; 99285-25

== ENCOUNTER 2018-11-20 05:47 | Inpatient (IN) | payer OTHER ==
[2018-11-20] MEDS: ALBUTEROL 0.5% (NEB) 2.5 MG/0.5 ML AMP INH (06:10)
[2018-11-20] MEDS: IPRATROPIUM (NEB) 0.5 MG/2.5 ML AMP INH (06:10)
[2018-11-20 06:16] LABS: ADD MAN DIFF? NO
[2018-11-20 06:25] LABS: ABNORMAL IP MESSAGE 1; BASOPHIL # 0.1 10^3/ul (0.0-0.1); BASOPHILS % 0.3 % (0.0-2.0); EOSINOPHILS % 0.1 % (0.0-7.0); HEMATOCRIT 27.2 % (42.0-52.0); HEMOGLOBIN 7.7 g/dl (14.0-18.0); LYMPHOCYTES # 1.7 10^3/ul (0.8-2.9); MEAN CORPUSCULAR HEMOGLOBIN 22.6 pg (29.0-33.0); MEAN CORPUSCULAR HGB CONC 28.3 g/dl (32.0-37.0); MEAN CORPUSCULAR VOLUME 79.8 fl (82.0-101.0); MONOCYTES % 5.4 % (0.0-11.0); NEUTROPHIL # 15.7 10^3/ul (1.6-7.5); NEUTROPHILS % 84.6 % (39.0-77.0); PLATELET COUNT 434 10^3/UL (140-415); POSITIVE DIFF @See below; RED BLOOD COUNT 3.41 10^6/ul (4.70-6.10)
[2018-11-20 06:25] LABS: WHITE BLOOD COUNT 18.6 10^3/ul (4.8-10.8)
[2018-11-20 06:36] LABS: ALANINE AMINOTRANSFERASE 14 IU/L (13-69); ALBUMIN/GLOBULIN RATIO 1.05; ALKALINE PHOSPHATASE 102 IU/L (42-121); ANION GAP 19 (5-13); ASPARTATE AMINO TRANSFERASE 31 IU/L (15-46); BILIRUBIN,INDIRECT 1.1 mg/dl (0-1.1); BILIRUBIN,TOTAL 1.1 mg/dl (0.2-1.3); BLOOD UREA NITROGEN 27 mg/dl (7-20); CALCIUM 8.8 mg/dl (8.4-10.2); CARBON DIOXIDE 22 mmol/L (21-31); CHLORIDE 98 mmol/L (97-110); CREATININE 1.41 mg/dl (0.61-1.24); Estimated GFR 51 mL/min (>60); GLUCOSE 251 mg/dl (70-220); POTASSIUM 4.2 mmol/L (3.5-5.1); SODIUM 139 mmol/L (135-144); TOTAL PROTEIN 7.8 g/dl (6.1-8.1)
[2018-11-20 06:45] LABS: INR 1.11; PROTIME 14.4 Sec (11.9-14.9); PT RATIO 1.1
[2018-11-20] MEDS: METHYLPREDNISOLONE 125 MG INJ IV (06:45)
[2018-11-20 06:46] LABS: PARTIAL THROMBOPLASTIN TIME 22.7 Sec (23.0-35.0)
[2018-11-20 06:47] LABS: B-TYPE NATRIURETIC PEPTIDE 600 PG/ML (0-125)
[2018-11-20] MEDS: CEFEPIME 2GM/50 ML (PMX) 50 ML IVPB (06:49)
[2018-11-20] MEDS: SOD CHLORIDE 0.9% 500 ML IV ×2 (07:40→13:24)
[2018-11-20] MEDS: VANCOMYCIN 1 GM (PMX) 250 ML IVPB (07:40)
[2018-11-20] MEDS ORDERED: ACETAMINOPHEN 325 MG TAB PO (08:30)
[2018-11-20 09:30] LABS: LACTIC ACID 10.4 mmol/L (0.5-2.0)
[2018-11-20] MEDS: FAMOTIDINE 20 MG TAB PO ×2 (09:52→21:41)
[2018-11-20] MEDS: FUROSEMIDE 40 MG TAB PO (09:52)
[2018-11-20] MEDS: LINAGLIPTIN 5 MG TABLET PO (09:53)
[2018-11-20] MEDS: AMIODARONE 200 MG TAB PO (09:53)
[2018-11-20] MEDS: ACCU-CHEK XX ×3 (11:30→21:00)
[2018-11-20 12:36] LABS: ADD UMIC YES; UR ASCORBIC ACID 40 mg/dL (NEGATIVE); UR BILIRUBIN (Dip) NEGATIVE (NEGATIVE); UR BLOOD (Dip) NEGATIVE (NEGATIVE); UR CLARITY CLOUDY (CLEAR); UR COLOR YELLOW (YELLOW); UR GLUCOSE (Dip) NEGATIVE (NEGATIVE); UR GRANULAR CAST FEW /HPF (NONE SEEN); UR HYALINE CAST FEW /HPF (NONE SEEN); UR KETONES (Dip) NEGATIVE (NEGATIVE); UR LEUKOCYTE ESTERASE (Dip) TRACE Leu/ul (NEGATIVE); UR MUCUS MANY /HPF (NONE SEEN); UR NITRITE (Dip) NEGATIVE (NEGATIVE); UR RBC 7 /HPF (0-5); UR SPECIFIC GRAVITY (Dip) 1.017 (1.003-1.030); UR TOTAL PROTEIN (Dip) NEGATIVE (NEGATIVE); UR UROBILINOGEN (Dip) NEGATIVE (NEGATIVE); UR WBC 9 /HPF (0-5)
[2018-11-20 12:47] LABS: SODIUM,URINE RANDOM < 13 mmol/L (30-90)
[2018-11-20] MEDS: IPRATROPIUM (HFA) 12.9 GM INHALER INH ×4 (12:50→22:15)
[2018-11-20] MEDS: SOD CHLORIDE 0.9% 1,000 ML IV ×2 (12:50→20:16)
[2018-11-20] MEDS: SOD CHLORIDE 0.9% 0 ML IV (12:51)
[2018-11-20] MEDS ORDERED: VANCOMYCIN IV PER PHARMACY XX (13:00)
[2018-11-20 13:02] LABS: ADD MAN DIFF? NO
[2018-11-20 13:06] LABS: Arterial Base Excess -4.6 mmol/L (-3.0-3); Arterial Blood Gas Oxygen Sat 94.3 mmHG (95.0-98.0); Arterial COHb 0.2 % (0.0-3.0); Arterial Fraction of Oxyhgb 93.5 % (93.0-99.0); Arterial HCO3 19.5 mmol/L (22.0-26.0); Arterial MetHb 0.6 % (0.0-1.5); Arterial pCO2 32.1 mmhg (35-45); MODE MASK - SIMPLE; Site Right Brachial
[2018-11-20 13:07] LABS: BASOPHILS % 0.1 % (0.0-2.0); HEMATOCRIT 25.7 % (42.0-52.0); HEMOGLOBIN 7.7 g/dl (14.0-18.0); LYMPHOCYTES # 0.6 10^3/ul (0.8-2.9); LYMPHOCYTES % 4.5 % (15.0-51.0); MEAN CORPUSCULAR HEMOGLOBIN 23.6 pg (29.0-33.0); MEAN CORPUSCULAR VOLUME 78.8 fl (82.0-101.0); MEAN PLATELET VOLUME 9.4 fl (7.4-10.4); MONOCYTE # 0.2 10^3/ul (0.3-0.9); MONOCYTES % 1.8 % (0.0-11.0); NEUTROPHIL # 12.3 10^3/ul (1.6-7.5); NEUTROPHILS % 92.8 % (39.0-77.0); PLATELET COUNT 243 10^3/UL (140-415); RED BLOOD COUNT 3.26 10^6/ul (4.70-6.10); RED CELL DISTRIBUTION WIDTH 17.8 % (11.5-14.5)
[2018-11-20 13:07] LABS: WHITE BLOOD COUNT 13.3 10^3/ul (4.8-10.8)
[2018-11-20 13:28] LABS: ANION GAP 16 (5-13); BLOOD UREA NITROGEN 29 mg/dl (7-20); CALCIUM 8.7 mg/dl (8.4-10.2); CARBON DIOXIDE 24 mmol/L (21-31); CHLORIDE 99 mmol/L (97-110); CREATININE 1.29 mg/dl (0.61-1.24); Estimated GFR 57 mL/min (>60); GLUCOSE 161 mg/dl (70-220); POTASSIUM 3.5 mmol/L (3.5-5.1); SODIUM 139 mmol/L (135-144)
[2018-11-20] MEDS ORDERED: ETOMIDATE 20 MG INJ (15:00)
[2018-11-20] MEDS ORDERED: ROCURONIUM 50 MG INJ (15:00)
[2018-11-20] MEDS: ETOMIDATE 20 MG INJ IV (15:29)
[2018-11-20] MEDS: ROCURONIUM 50 MG INJ IV (15:30)
[2018-11-20] MEDS: PROPOFOL 100 ML IV ×2 (15:41→21:54)
[2018-11-20] MEDS: VANCOMYCIN 750 MG (PMX) 250 ML IVPB (16:06)
[2018-11-20 17:02] LABS: AADO2 Arterial 571.4 mmHg (7.0-24.0); Arterial Base Excess -11.5 mmol/L (-3.0-3); Arterial Blood Gas Oxygen Sat 93.2 mmHG (95.0-98.0); Arterial COHb 0.1 % (0.0-3.0); Arterial Fraction of Oxyhgb 92.4 % (93.0-99.0); Arterial HCO3 16.8 mmol/L (22.0-26.0); Arterial MetHb 0.8 % (0.0-1.5); Arterial pCO2 50.6 mmhg (35-45); MODE VENT - AC; Site Right Brachial
[2018-11-20] MEDS: CEFEPIME 1GM/50 ML (PMX) 50 ML IVPB (20:16)
[2018-11-20] MEDS: FENTAnyl (DRIP) 1000 mcg/100mL 100 ML IV (21:00)
[2018-11-20] MEDS: ATORVASTATIN 80 MG TAB PO (21:41)
[2018-11-20] MEDS: NA BICARBONATE 8.4% 50 ML SYG IV (21:45)
[2018-11-21] MEDS: NORepinephrine 8MG/250 ML (PMX 250 ML IV (00:09)
[2018-11-21] MEDS: PROPOFOL 100 ML IV ×7 (00:56→22:23)
[2018-11-21] MEDS: IPRATROPIUM (HFA) 12.9 GM INHALER INH ×6 (00:58→21:08)
[2018-11-21 05:21] LABS: AADO2 Arterial 325.2 mmHg (7.0-24.0); Allen Test ACCEPTAB; Arterial Base Excess -2.7 mmol/L (-3.0-3); Arterial Blood Gas Oxygen Sat 95.3 mmHG (95.0-98.0); Arterial COHb 0.9 % (0.0-3.0); Arterial Fraction of Oxyhgb 93.8 % (93.0-99.0); Arterial HCO3 19.8 mmol/L (22.0-26.0); Arterial MetHb 0.7 % (0.0-1.5); MODE VENT - AC; Site Right Radial
[2018-11-21 05:56] LABS: ABNORMAL IP MESSAGE 1; MEAN CORPUSCULAR HEMOGLOBIN 28.5 pg (29.0-33.0); MEAN CORPUSCULAR HGB CONC 35.8 g/dl (32.0-37.0); MEAN CORPUSCULAR VOLUME 79.5 fl (82.0-101.0); MEAN PLATELET VOLUME 10.5 fl (7.4-10.4); PLATELET COUNT 230 10^3/UL (140-415); POSITIVE DIFF @See below; RED BLOOD COUNT 2.39 10^6/ul (4.70-6.10); RED CELL DISTRIBUTION WIDTH 17.9 % (11.5-14.5)
[2018-11-21 06:19] LABS: ANION GAP 16 (5-13); BLOOD UREA NITROGEN 38 mg/dl (7-20); CARBON DIOXIDE 20 mmol/L (21-31); CHLORIDE 95 mmol/L (97-110); CREATININE 1.38 mg/dl (0.61-1.24); Estimated GFR 53 mL/min (>60); GLUCOSE 125 mg/dl (70-220); MAGNESIUM 1.4 mg/dl (1.7-2.5); PHOSPHORUS 4.5 mg/dl (2.5-4.9); POTASSIUM 3.5 mmol/L (3.5-5.1); SODIUM 131 mmol/L (135-144)
[2018-11-21 06:23] LABS: LACTIC ACID 3.9 mmol/L (0.5-2.0)
[2018-11-21 06:42] LABS: HEMOGLOBIN 6.8 g/dl (14.0-18.0)
[2018-11-21 06:43] LABS: ADD MAN DIFF? YES
[2018-11-21 07:50] LABS: AADO2 Arterial 392.3 mmHg (7.0-24.0); Allen Test ACCEPTAB; Arterial Base Excess -11.4 mmol/L (-3.0-3); Arterial Blood Gas Oxygen Sat 98.4 mmHG (95.0-98.0); Arterial COHb 0.1 % (0.0-3.0); Arterial Fraction of Oxyhgb 97.1 % (93.0-99.0); Arterial MetHb 1.2 % (0.0-1.5); Arterial pCO2 29.3 mmhg (35-45); MODE VENT - AC; Site Right Radial
[2018-11-21] MEDS: SOD CHLORIDE 0.9% 1,000 ML IV (07:55)
[2018-11-21] MEDS: ACCU-CHEK XX ×4 (07:56→20:33)
[2018-11-21] MEDS: INSULIN ASPART [NOVOLOG] 3 ML PEN SC ×4 (07:58→20:33)
[2018-11-21] MEDS: VANCOMYCIN 750 MG (PMX) 250 ML IVPB ×2 (08:00→20:28)
[2018-11-21 08:24] LABS: ANISOCYTOSIS 1+ (0-0); BAND NEUTROPHILS #M 1.8 10^3/ul (0.0-0.6); BAND NEUTROPHILS % (M) 12 % (0-4); BURR CELLS 3+ (0-0); ERYTHROBLAST% (NRBC) (M) 1 % (0-0); LYMPHOCYTES #M 0.7 10^3/ul (0.8-2.9); LYMPHOCYTES % (M) 5 % (15-51); MICROCYTOSIS 1+ (0-0); MONOCYTE #M 0.1 10^3/ul (0.3-0.9); MONOCYTES % (M) 1 % (0-11); PLATELET ESTIMATE NORMAL; POIKILOCYTOSIS 3+ (0-0); POLYCHROMASIA 1+ (0-0); SEG NEUT #M 12.6 10^3/ul (1.6-7.5); SEGMENTED NEUTROPHILS (M) % 82 % (39-77); SMUDGE%M 54 % (0-0)
[2018-11-21 08:26] LABS: HEMATOCRIT 19.8 % (42.0-52.0)
[2018-11-21 08:32] LABS: HEMOGLOBIN 6.1 g/dl (14.0-18.0)
[2018-11-21] MEDS: FAMOTIDINE 20 MG TAB PO ×2 (10:12→20:28)
[2018-11-21] MEDS: AMIODARONE 200 MG TAB PO (10:13)
[2018-11-21] MEDS: LINAGLIPTIN 5 MG TABLET PO (10:27)
[2018-11-21] MEDS: CEFEPIME 1GM/50 ML (PMX) 50 ML IVPB ×2 (10:33→20:28)
[2018-11-21 10:42] LABS: IMMEDIATE SPIN CROSSMATCH 1 6
[2018-11-21] MEDS: MAGNESIUM SULFATE 2 GM/50 ML 50 ML IVPB (11:26)
[2018-11-21] MEDS: FENTAnyl (DRIP) 1000 mcg/100mL 100 ML IV (13:09)
[2018-11-21 15:51] LABS: CREATININE, RANDOM URINE 188 mg/dL (20-320); MICROALBUMIN 5.8 mg/dL; MICROALBUMIN/CREATININE RATIO 31 (<30)
[2018-11-21] MEDS: LIDOCAINE 1% (MPF) 5 ML VIAL (19:34)
[2018-11-21] MEDS: ATORVASTATIN 80 MG TAB PO (20:28)
[2018-11-22] MEDS: IPRATROPIUM (HFA) 12.9 GM INHALER INH ×6 (01:17→21:27)
[2018-11-22] MEDS: SOD CHLORIDE 0.9% 1,000 ML IV ×2 (01:28→23:17)
[2018-11-22] MEDS: PROPOFOL 100 ML IV ×3 (01:28→18:32)
[2018-11-22 05:10] LABS: ADD MAN DIFF? NO
[2018-11-22 05:11] LABS: WHITE BLOOD COUNT 15.5 10^3/ul (4.8-10.8)
[2018-11-22 05:11] LABS: ABNORMAL IP MESSAGE 1; BASOPHILS % 0.1 % (0.0-2.0); HEMATOCRIT 19.3 % (42.0-52.0); LYMPHOCYTES # 1.9 10^3/ul (0.8-2.9); MEAN CORPUSCULAR HEMOGLOBIN 24.9 pg (29.0-33.0); MEAN CORPUSCULAR HGB CONC 31.1 g/dl (32.0-37.0); MEAN CORPUSCULAR VOLUME 80.1 fl (82.0-101.0); MEAN PLATELET VOLUME 10.1 fl (7.4-10.4); MONOCYTE # 1.4 10^3/ul (0.3-0.9); NEUTROPHIL # 12.2 10^3/ul (1.6-7.5); NEUTROPHILS % 78.4 % (39.0-77.0); PLATELET COUNT 182 10^3/UL (140-415); POSITIVE DIFF @See below; RED BLOOD COUNT 2.41 10^6/ul (4.70-6.10); RED CELL DISTRIBUTION WIDTH 18.8 % (11.5-14.5)
[2018-11-22 05:49] LABS: ANION GAP 6 (5-13); BLOOD UREA NITROGEN 37 mg/dl (7-20); CALCIUM 7.2 mg/dl (8.4-10.2); CARBON DIOXIDE 25 mmol/L (21-31); CHLORIDE 108 mmol/L (97-110); CREATININE 0.95 mg/dl (0.61-1.24); Estimated GFR > 60 mL/min (>60); GLUCOSE 105 mg/dl (70-220); MAGNESIUM 2.1 mg/dl (1.7-2.5); PHOSPHORUS 3.8 mg/dl (2.5-4.9); SODIUM 139 mmol/L (135-144)
[2018-11-22 06:03] LABS: POTASSIUM 2.9 mmol/L (3.5-5.1)
[2018-11-22] MEDS: NORepinephrine 8MG/250 ML (PMX 250 ML IV (06:16)
[2018-11-22] MEDS: FENTAnyl (DRIP) 1000 mcg/100mL 100 ML IV (06:18)
[2018-11-22] MEDS: POTASSIUM CHLORIDE 50 ML IVPB ×4 (07:20→23:17)
[2018-11-22 07:37] LABS: AADO2 Arterial 322.2 mmHg (7.0-24.0); Allen Test ACCEPTAB; Arterial Base Excess -0.6 mmol/L (-3.0-3); Arterial Blood Gas Oxygen Sat 98.6 mmHG (95.0-98.0); Arterial COHb 0.3 % (0.0-3.0); Arterial Fraction of Oxyhgb 97.8 % (93.0-99.0); Arterial MetHb 0.5 % (0.0-1.5); Arterial pCO2 27.8 mmhg (35-45); MODE VENT - AC; Site Left Radial
[2018-11-22 07:56] LABS: RETICULOCYTE RBC 2.64
[2018-11-22 07:56] LABS: RETICULOCYTE COUNT % 1.9 % (0.5-1.5)
[2018-11-22] MEDS: SOD CHLORIDE 0.9% 100 ML (07:57)
[2018-11-22] MEDS: IOHEXOL 300MG/ML 150 ML BTL (07:58)
[2018-11-22 08:14] LABS: LACTIC ACID 1.2 mmol/L (0.5-2.0)
[2018-11-22 08:22] LABS: VANCOMYCIN,TROUGH 13.3 ug/ml (10.0-20.0)
[2018-11-22] MEDS: AMIODARONE 200 MG TAB PO (09:00)
[2018-11-22] MEDS: INSULIN ASPART [NOVOLOG] 3 ML PEN SC ×4 (09:00→20:57)
[2018-11-22] MEDS: VANCOMYCIN 750 MG (PMX) 250 ML IVPB ×2 (09:15→20:38)
[2018-11-22] MEDS: CEFEPIME 1GM/50 ML (PMX) 50 ML IVPB ×2 (09:16→20:38)
[2018-11-22] MEDS: FAMOTIDINE 20 MG TAB PO (09:18)
[2018-11-22] MEDS: LINAGLIPTIN 5 MG TABLET PO (09:18)
[2018-11-22 09:31] LABS: INR 1.21; PROTIME 15.4 Sec (11.9-14.9); PT RATIO 1.2
[2018-11-22 09:53] LABS: PROCALCITONIN 0.61 ng/mL (0.00-0.10)
[2018-11-22 10:00] LABS: IRON < 10 ug/dl (35-150)
[2018-11-22 10:05] LABS: TOTAL IRON BINDING CAPACITY 335 ug/dl (241-421)
[2018-11-22] MEDS ORDERED: DEXTROSE 50% 50 ML SYRINGE IV ×2 (10:30)
[2018-11-22] MEDS ORDERED: GLUCOSE GEL 15 GRAM TUBE PO ×2 (10:30)
[2018-11-22] MEDS ORDERED: GLUCAGON 1 MG INJ IM (10:30)
[2018-11-22] MEDS ORDERED: GLUCOSE GEL 15 GRAM TUBE BUCCAL (10:30)
[2018-11-22 12:17] LABS: FERRITIN 31.8 ng/ml (11.1-264.0)
[2018-11-22] MEDS: MIDAZOLAM (DRIP) 50 mg/50 mL 50 ML IV ×2 (12:34→18:31)
[2018-11-22 12:48] LABS: FOLATE 6.9 ng/ml (2.8-20.0)
[2018-11-22 14:39] LABS: HEMATOCRIT 25.1 % (42.0-52.0); HEMOGLOBIN 7.8 g/dl (14.0-18.0)
[2018-11-22 15:15] LABS: ANION GAP 7 (5-13); BLOOD UREA NITROGEN 33 mg/dl (7-20); CALCIUM 8.3 mg/dl (8.4-10.2); CARBON DIOXIDE 25 mmol/L (21-31); CHLORIDE 109 mmol/L (97-110); CREATININE 0.89 mg/dl (0.61-1.24); Estimated GFR > 60 mL/min (>60); GLUCOSE 108 mg/dl (70-220); POTASSIUM 3.6 mmol/L (3.5-5.1); SODIUM 141 mmol/L (135-144)
[2018-11-22] MEDS: ATORVASTATIN 80 MG TAB NGT (20:38)
[2018-11-22] MEDS: FAMOTIDINE 20 MG TAB NGT (20:51)
[2018-11-22] MEDS: FUROSEMIDE 20 MG INJ IV (23:17)
[2018-11-23] MEDS: INSULIN ASPART [NOVOLOG] 3 ML PEN SC ×6 (01:00→20:37)
[2018-11-23] MEDS: IPRATROPIUM (HFA) 12.9 GM INHALER INH ×6 (01:33→21:32)
[2018-11-23] MEDS: MIDAZOLAM (DRIP) 50 mg/50 mL 50 ML IV ×3 (03:19→18:50)
[2018-11-23] MEDS: PROPOFOL 100 ML IV ×2 (03:19→15:36)
[2018-11-23 04:34] LABS: ADD MAN DIFF? NO
[2018-11-23 04:38] LABS: WHITE BLOOD COUNT 9.6 10^3/ul (4.8-10.8)
[2018-11-23 04:38] LABS: BASOPHILS % 0.1 % (0.0-2.0); EOSINOPHILS % 0.3 % (0.0-7.0); HEMOGLOBIN 7.6 g/dl (14.0-18.0); LYMPHOCYTES # 1.1 10^3/ul (0.8-2.9); LYMPHOCYTES % 11.5 % (15.0-51.0); MEAN CORPUSCULAR HEMOGLOBIN 25.6 pg (29.0-33.0); MEAN CORPUSCULAR HGB CONC 30.4 g/dl (32.0-37.0); MEAN CORPUSCULAR VOLUME 84.2 fl (82.0-101.0); MEAN PLATELET VOLUME 10.3 fl (7.4-10.4); MONOCYTE # 0.8 10^3/ul (0.3-0.9); MONOCYTES % 8.6 % (0.0-11.0); NEUTROPHIL # 7.6 10^3/ul (1.6-7.5); NEUTROPHILS % 79.1 % (39.0-77.0); NUCLEATED RED BLOOD CELLS% 0.3 /100WBC (0.0-0.0); PLATELET COUNT 133 10^3/UL (140-415); RED BLOOD COUNT 2.97 10^6/ul (4.70-6.10); RED CELL DISTRIBUTION WIDTH 19.2 % (11.5-14.5)
[2018-11-23 07:01] LABS: ANION GAP 7 (5-13); BLOOD UREA NITROGEN 28 mg/dl (7-20); CALCIUM 8.2 mg/dl (8.4-10.2); CARBON DIOXIDE 26 mmol/L (21-31); CHLORIDE 110 mmol/L (97-110); CREATININE 0.86 mg/dl (0.61-1.24); Estimated GFR > 60 mL/min (>60); GLUCOSE 103 mg/dl (70-220); MAGNESIUM 2.1 mg/dl (1.7-2.5); PHOSPHORUS 3.1 mg/dl (2.5-4.9); POTASSIUM 3.4 mmol/L (3.5-5.1); SODIUM 143 mmol/L (135-144)
[2018-11-23] MEDS ORDERED: GELATIN SIZE 100 SPONGE (07:16)
[2018-11-23] MEDS ORDERED: VANCOMYCIN 1 GM INJ (07:16)
[2018-11-23] MEDS ORDERED: THROMBIN 5000 UNIT (RECOTHROM) VIAL (07:17)
[2018-11-23 07:45] LABS: Allen Test ACCEPTAB; Arterial Base Excess -1.7 mmol/L (-3.0-3); Arterial Blood Gas Oxygen Sat 94.6 mmHG (95.0-98.0); Arterial COHb 0.3 % (0.0-3.0); Arterial Fraction of Oxyhgb 93.7 % (93.0-99.0); Arterial HCO3 20.3 mmol/L (22.0-26.0); Arterial MetHb 0.6 % (0.0-1.5); Arterial pCO2 24.8 mmhg (35-45); MODE VENT - AC; Site Left Radial
[2018-11-23] MEDS ORDERED: ROCURONIUM 50 MG INJ (07:59)
[2018-11-23] MEDS ORDERED: MIDAZOLAM 1 MG/ML 2 ML INJ (07:59)
[2018-11-23 08:50] LABS: IMMEDIATE SPIN CROSSMATCH 1 2
[2018-11-23] MEDS: LINAGLIPTIN 5 MG TABLET NGT (09:00)
[2018-11-23] MEDS: AMIODARONE 200 MG TAB NGT (09:00)
[2018-11-23] MEDS: FAMOTIDINE 20 MG TAB NGT ×2 (09:00→20:37)
[2018-11-23] MEDS: POLYMYXIN/BACITRACIN 1L IRRIG (09:10)
[2018-11-23] MEDS ORDERED: FENTAnyl 50 MCG/ML VIAL (10:12)
[2018-11-23] MEDS ORDERED: FUROSEMIDE 20 MG INJ (10:16)
[2018-11-23] MEDS: VANCOMYCIN 750 MG (PMX) 250 ML IVPB ×2 (11:25→21:37)
[2018-11-23] MEDS: CEFEPIME 1GM/50 ML (PMX) 50 ML IVPB ×2 (11:25→20:37)
[2018-11-23] MEDS: FENTAnyl (DRIP) 1000 mcg/100mL 100 ML IV (14:09)
[2018-11-23] MEDS ORDERED: BISACODYL 10 MG SUPP PR (18:00)
[2018-11-23] MEDS: DOCUSATE SODIUM 10 MG/ML (10ML CUP) NGT (20:37)
[2018-11-23] MEDS: POLYETHYLENE GLYCOL 17 GM PACKET NGT (20:37)
[2018-11-23] MEDS: ATORVASTATIN 80 MG TAB NGT (20:37)
[2018-11-24] MEDS: IPRATROPIUM (HFA) 12.9 GM INHALER INH ×5 (01:00→20:35)
[2018-11-24] MEDS: INSULIN ASPART [NOVOLOG] 3 ML PEN SC ×6 (01:00→21:00)
[2018-11-24] MEDS: PROPOFOL 100 ML IV ×2 (02:25→19:18)
[2018-11-24 05:15] LABS: ADD MAN DIFF? NO
[2018-11-24 05:18] LABS: BASOPHILS % 0.1 % (0.0-2.0); EOSINOPHILS # 0.3 10^3/ul (0.0-0.5); EOSINOPHILS % 2.4 % (0.0-7.0); HEMATOCRIT 28.8 % (42.0-52.0); HEMOGLOBIN 8.8 g/dl (14.0-18.0); LYMPHOCYTES % 9.5 % (15.0-51.0); MEAN CORPUSCULAR HEMOGLOBIN 26.3 pg (29.0-33.0); MEAN CORPUSCULAR HGB CONC 30.6 g/dl (32.0-37.0); MEAN PLATELET VOLUME 10.4 fl (7.4-10.4); MONOCYTES % 8.9 % (0.0-11.0); NEUTROPHIL # 8.5 10^3/ul (1.6-7.5); NEUTROPHILS % 78.7 % (39.0-77.0); NUCLEATED RED BLOOD CELLS% 0.3 /100WBC (0.0-0.0); PLATELET COUNT 108 10^3/UL (140-415); POSITIVE DIFF @See below; RED BLOOD COUNT 3.35 10^6/ul (4.70-6.10); RED CELL DISTRIBUTION WIDTH 19.1 % (11.5-14.5)
[2018-11-24 05:18] LABS: WHITE BLOOD COUNT 10.9 10^3/ul (4.8-10.8)
[2018-11-24 05:43] LABS: ANION GAP 5 (5-13); BLOOD UREA NITROGEN 19 mg/dl (7-20); CALCIUM 7.9 mg/dl (8.4-10.2); CARBON DIOXIDE 26 mmol/L (21-31); CHLORIDE 111 mmol/L (97-110); CREATININE 0.68 mg/dl (0.61-1.24); Estimated GFR > 60 mL/min (>60); GLUCOSE 114 mg/dl (70-220); PHOSPHORUS 3.3 mg/dl (2.5-4.9); POTASSIUM 3.2 mmol/L (3.5-5.1); SODIUM 142 mmol/L (135-144)
[2018-11-24] MEDS: FENTAnyl (DRIP) 1000 mcg/100mL 100 ML IV ×2 (06:07→20:17)
[2018-11-24 07:17] LABS: AADO2 Arterial 91.1 mmHg (7.0-24.0); Arterial Base Excess -2.4 mmol/L (-3.0-3); Arterial Blood Gas Oxygen Sat 96.9 mmHG (95.0-98.0); Arterial COHb 0.3 % (0.0-3.0); Arterial Fraction of Oxyhgb 96.3 % (93.0-99.0); Arterial HCO3 20.4 mmol/L (22.0-26.0); Arterial MetHb 0.3 % (0.0-1.5); Arterial pCO2 28.5 mmhg (35-45); MODE VENT - AC; Site A-Line
[2018-11-24] MEDS: LINAGLIPTIN 5 MG TABLET NGT (08:44)
[2018-11-24] MEDS: CEFEPIME 1GM/50 ML (PMX) 50 ML IVPB ×2 (08:44→21:03)
[2018-11-24] MEDS: FAMOTIDINE 20 MG TAB NGT ×2 (08:44→21:03)
[2018-11-24] MEDS: AMIODARONE 200 MG TAB NGT (08:44)
[2018-11-24] MEDS: DOCUSATE SODIUM 10 MG/ML (10ML CUP) NGT ×2 (08:44→21:03)
[2018-11-24] MEDS: POTASSIUM CHLORIDE 100 ML IVPB ×2 (08:45→10:16)
[2018-11-24] MEDS: VANCOMYCIN 750 MG (PMX) 250 ML IVPB ×2 (10:16→19:44)
[2018-11-24] MEDS: ACETAMINOPHEN 325 MG TAB NGT ×2 (11:45→19:45)
[2018-11-24] MEDS ORDERED: DEXMEDETOMIDINE IN DEXTROSE 5% 50 ML IV (15:06)
[2018-11-24] MEDS: DEXMEDETOMIDINE IN DEXTROSE 5% 50 ML IV ×2 (15:14→21:05)
[2018-11-24] MEDS: MIDAZOLAM (DRIP) 50 mg/50 mL 50 ML IV (19:18)
[2018-11-24] MEDS: ATORVASTATIN 80 MG TAB NGT (21:03)
[2018-11-24] MEDS: POLYETHYLENE GLYCOL 17 GM PACKET NGT (21:05)
[2018-11-24] MEDS: NORepinephrine 8MG/250 ML (PMX 250 ML IV (21:28)
[2018-11-25] MEDS: INSULIN ASPART [NOVOLOG] 3 ML PEN SC ×6 (01:00→21:00)
[2018-11-25] MEDS: IPRATROPIUM (HFA) 12.9 GM INHALER INH ×6 (01:16→21:38)
[2018-11-25 04:49] LABS: ADD MAN DIFF? NO
[2018-11-25 04:51] LABS: BASOPHILS % 0.1 % (0.0-2.0); EOSINOPHILS # 0.8 10^3/ul (0.0-0.5); EOSINOPHILS % 5.7 % (0.0-7.0); HEMATOCRIT 28.2 % (42.0-52.0); HEMOGLOBIN 8.4 g/dl (14.0-18.0); LYMPHOCYTES # 1.2 10^3/ul (0.8-2.9); LYMPHOCYTES % 9.1 % (15.0-51.0); MEAN CORPUSCULAR HEMOGLOBIN 26.1 pg (29.0-33.0); MEAN CORPUSCULAR HGB CONC 29.8 g/dl (32.0-37.0); MEAN CORPUSCULAR VOLUME 87.6 fl (82.0-101.0); MEAN PLATELET VOLUME 11.4 fl (7.4-10.4); MONOCYTE # 1.4 10^3/ul (0.3-0.9); MONOCYTES % 9.9 % (0.0-11.0); NEUTROPHIL # 10.1 10^3/ul (1.6-7.5); NEUTROPHILS % 74.7 % (39.0-77.0); PLATELET COUNT 116 10^3/UL (140-415); RED BLOOD COUNT 3.22 10^6/ul (4.70-6.10); RED CELL DISTRIBUTION WIDTH 19.2 % (11.5-14.5)
[2018-11-25 04:51] LABS: WHITE BLOOD COUNT 13.6 10^3/ul (4.8-10.8)
[2018-11-25 05:14] LABS: MAGNESIUM 2.1 mg/dl (1.7-2.5)
[2018-11-25 05:14] LABS: ANION GAP 6 (5-13); BLOOD UREA NITROGEN 18 mg/dl (7-20); CALCIUM 8.3 mg/dl (8.4-10.2); CARBON DIOXIDE 22 mmol/L (21-31); CHLORIDE 115 mmol/L (97-110); Estimated GFR > 60 mL/min (>60); GLUCOSE 98 mg/dl (70-220); POTASSIUM 3.4 mmol/L (3.5-5.1); SODIUM 143 mmol/L (135-144)
[2018-11-25 05:16] LABS: PHOSPHORUS 3.2 mg/dl (2.5-4.9)
[2018-11-25] MEDS: POTASSIUM CHLORIDE 20 MEQ POWDER FOR ORAL SOLN NGT (06:07)
[2018-11-25] MEDS: DEXMEDETOMIDINE IN DEXTROSE 5% 50 ML IV ×3 (06:19→22:40)
[2018-11-25] MEDS: PROPOFOL 100 ML IV ×2 (07:05→14:55)
[2018-11-25 08:03] LABS: AADO2 Arterial 106.1 mmHg (7.0-24.0); Arterial Base Excess -5.2 mmol/L (-3.0-3); Arterial HCO3 18.2 mmol/L (22.0-26.0); Arterial pCO2 29.7 mmhg (35-45); MODE VENT - AC; Site A-Line
[2018-11-25 08:13] LABS: VANCOMYCIN,TROUGH 5.4 ug/ml (10.0-20.0)
[2018-11-25] MEDS: VANCOMYCIN 750 MG (PMX) 250 ML IVPB ×2 (08:44→16:27)
[2018-11-25] MEDS: AMIODARONE 200 MG TAB NGT (08:50)
[2018-11-25] MEDS: FAMOTIDINE 20 MG TAB NGT ×2 (08:55→21:45)
[2018-11-25] MEDS: DOCUSATE SODIUM 10 MG/ML (10ML CUP) NGT ×2 (08:55→21:45)
[2018-11-25] MEDS: POLYETHYLENE GLYCOL 17 GM PACKET NGT (08:56)
[2018-11-25] MEDS: CEFEPIME 1GM/50 ML (PMX) 50 ML IVPB (08:56)
[2018-11-25] MEDS: LINAGLIPTIN 5 MG TABLET NGT (10:39)
[2018-11-25] MEDS: POTASSIUM CHLORIDE 50 ML IVPB ×2 (11:54→13:12)
[2018-11-25] MEDS: MAGNESIUM SULFATE 1 GM/D5W 100 ML IVPB (11:54)
[2018-11-25] MEDS: ACETAMINOPHEN 325 MG TAB NGT (14:20)
[2018-11-25] MEDS: ATORVASTATIN 80 MG TAB NGT (21:45)
[2018-11-25] MEDS: MEROPENEM 1 GM/50ML(PMX) 50 ML IVPB (21:45)
[2018-11-26] MEDS: VANCOMYCIN 750 MG (PMX) 250 ML IVPB ×3 (00:25→16:30)
[2018-11-26] MEDS: INSULIN ASPART [NOVOLOG] 3 ML PEN SC ×6 (01:00→21:00)
[2018-11-26] MEDS: IPRATROPIUM (HFA) 12.9 GM INHALER INH ×4 (03:00→13:00)
[2018-11-26] MEDS: DEXMEDETOMIDINE IN DEXTROSE 5% 50 ML IV (04:05)
[2018-11-26 07:49] LABS: ADD MAN DIFF? NO
[2018-11-26 07:52] LABS: WHITE BLOOD COUNT 11.8 10^3/ul (4.8-10.8)
[2018-11-26 07:52] LABS: BASOPHILS % 0.2 % (0.0-2.0); EOSINOPHILS # 0.8 10^3/ul (0.0-0.5); EOSINOPHILS % 6.4 % (0.0-7.0); HEMATOCRIT 27.2 % (42.0-52.0); HEMOGLOBIN 8.1 g/dl (14.0-18.0); LYMPHOCYTES # 1.1 10^3/ul (0.8-2.9); LYMPHOCYTES % 9.1 % (15.0-51.0); MEAN CORPUSCULAR HEMOGLOBIN 25.9 pg (29.0-33.0); MEAN CORPUSCULAR HGB CONC 29.8 g/dl (32.0-37.0); MEAN CORPUSCULAR VOLUME 86.9 fl (82.0-101.0); MEAN PLATELET VOLUME 11.2 fl (7.4-10.4); MONOCYTE # 0.9 10^3/ul (0.3-0.9); MONOCYTES % 7.4 % (0.0-11.0); NEUTROPHILS % 76.5 % (39.0-77.0); PLATELET COUNT 113 10^3/UL (140-415); RED BLOOD COUNT 3.13 10^6/ul (4.70-6.10); RED CELL DISTRIBUTION WIDTH 19.7 % (11.5-14.5)
[2018-11-26 08:12] LABS: ANION GAP 5 (5-13); BLOOD UREA NITROGEN 18 mg/dl (7-20); CALCIUM 7.9 mg/dl (8.4-10.2); CARBON DIOXIDE 22 mmol/L (21-31); CHLORIDE 116 mmol/L (97-110); CREATININE 0.55 mg/dl (0.61-1.24); Estimated GFR > 60 mL/min (>60); GLUCOSE 120 mg/dl (70-220); MAGNESIUM 2.2 mg/dl (1.7-2.5); PHOSPHORUS 3.3 mg/dl (2.5-4.9); POTASSIUM 3.9 mmol/L (3.5-5.1); SODIUM 143 mmol/L (135-144)
[2018-11-26 08:17] LABS: VANCOMYCIN,TROUGH 12.3 ug/ml (10.0-20.0)
[2018-11-26] MEDS: LINAGLIPTIN 5 MG TABLET NGT (08:20)
[2018-11-26] MEDS: MEROPENEM 1 GM/50ML(PMX) 50 ML IVPB ×2 (08:20→21:19)
[2018-11-26] MEDS: DOCUSATE SODIUM 10 MG/ML (10ML CUP) NGT ×2 (08:20→21:19)
[2018-11-26] MEDS: POLYETHYLENE GLYCOL 17 GM PACKET NGT (08:20)
[2018-11-26] MEDS: FAMOTIDINE 20 MG TAB NGT ×2 (08:20→21:19)
[2018-11-26] MEDS: AMIODARONE 200 MG TAB NGT (09:00)
[2018-11-26 10:06] LABS: AADO2 Arterial 90.1 mmHg (7.0-24.0); Arterial Base Excess -4.8 mmol/L (-3.0-3); Arterial Blood Gas Oxygen Sat 95.7 mmHG (95.0-98.0); Arterial COHb 0.3 % (0.0-3.0); Arterial HCO3 19.6 mmol/L (22.0-26.0); Arterial MetHb 0.4 % (0.0-1.5); Arterial pCO2 33.5 mmhg (35-45); Blood Gas PS 10; MODE VENT - CPAP; Site A-Line
[2018-11-26] MEDS: ATORVASTATIN 80 MG TAB NGT (21:19)
[2018-11-26] MEDS: PROPOFOL 100 ML IV (21:22)
[2018-11-27] MEDS: VANCOMYCIN 750 MG (PMX) 250 ML IVPB ×2 (00:31→08:12)
[2018-11-27] MEDS: INSULIN ASPART [NOVOLOG] 3 ML PEN SC ×6 (01:00→20:46)
[2018-11-27] MEDS: MEROPENEM 1 GM/50ML(PMX) 50 ML IVPB (08:12)
[2018-11-27] MEDS: DOCUSATE SODIUM 10 MG/ML (10ML CUP) NGT ×2 (08:12→20:26)
[2018-11-27] MEDS: POLYETHYLENE GLYCOL 17 GM PACKET NGT (08:13)
[2018-11-27] MEDS: FAMOTIDINE 20 MG TAB NGT ×2 (08:13→20:26)
[2018-11-27] MEDS: AMIODARONE 200 MG TAB NGT (08:14)
[2018-11-27] MEDS: PROPOFOL 100 ML IV ×2 (08:17→21:30)
[2018-11-27] MEDS: LINAGLIPTIN 5 MG TABLET NGT (08:17)
[2018-11-27] MEDS: SORBITOL 70% 30ML CUP PO (08:30)
[2018-11-27 08:33] LABS: ADD MAN DIFF? NO
[2018-11-27 08:43] LABS: WHITE BLOOD COUNT 12.2 10^3/ul (4.8-10.8)
[2018-11-27 08:43] LABS: BASOPHILS % 0.2 % (0.0-2.0); EOSINOPHILS # 0.6 10^3/ul (0.0-0.5); HEMATOCRIT 28.4 % (42.0-52.0); HEMOGLOBIN 8.4 g/dl (14.0-18.0); LYMPHOCYTES # 1.1 10^3/ul (0.8-2.9); LYMPHOCYTES % 8.6 % (15.0-51.0); MEAN CORPUSCULAR HEMOGLOBIN 25.8 pg (29.0-33.0); MEAN CORPUSCULAR HGB CONC 29.6 g/dl (32.0-37.0); MEAN CORPUSCULAR VOLUME 87.1 fl (82.0-101.0); MEAN PLATELET VOLUME 10.7 fl (7.4-10.4); MONOCYTES % 7.8 % (0.0-11.0); NEUTROPHIL # 9.5 10^3/ul (1.6-7.5); NEUTROPHILS % 77.9 % (39.0-77.0); PLATELET COUNT 143 10^3/UL (140-415); RED BLOOD COUNT 3.26 10^6/ul (4.70-6.10); RED CELL DISTRIBUTION WIDTH 19.9 % (11.5-14.5)
[2018-11-27 09:02] LABS: ANION GAP 5 (5-13); BLOOD UREA NITROGEN 12 mg/dl (7-20); CALCIUM 7.8 mg/dl (8.4-10.2); CARBON DIOXIDE 25 mmol/L (21-31); CHLORIDE 115 mmol/L (97-110); CREATININE 0.55 mg/dl (0.61-1.24); Estimated GFR > 60 mL/min (>60); GLUCOSE 109 mg/dl (70-220); POTASSIUM 3.5 mmol/L (3.5-5.1); SODIUM 145 mmol/L (135-144)
[2018-11-27] MEDS: BISACODYL (EC) 5 MG TAB PO (10:33)
[2018-11-27] MEDS: ATORVASTATIN 80 MG TAB NGT (20:26)
[2018-11-27] MEDS: ZOLPIDEM 5 MG TAB NGT (20:32)
[2018-11-28] MEDS: INSULIN ASPART [NOVOLOG] 3 ML PEN SC ×6 (00:35→20:51)
[2018-11-28] MEDS: ACETAMINOPHEN 325 MG TAB NGT (00:37)
[2018-11-28 05:34] LABS: ADD MAN DIFF? NO
[2018-11-28 06:01] LABS: BASOPHILS % 0.2 % (0.0-2.0); EOSINOPHILS # 0.7 10^3/ul (0.0-0.5); EOSINOPHILS % 6.1 % (0.0-7.0); HEMATOCRIT 29.8 % (42.0-52.0); HEMOGLOBIN 8.8 g/dl (14.0-18.0); LYMPHOCYTES # 1.3 10^3/ul (0.8-2.9); LYMPHOCYTES % 11.1 % (15.0-51.0); MEAN CORPUSCULAR HEMOGLOBIN 25.8 pg (29.0-33.0); MEAN CORPUSCULAR HGB CONC 29.5 g/dl (32.0-37.0); MEAN CORPUSCULAR VOLUME 87.4 fl (82.0-101.0); MEAN PLATELET VOLUME 10.4 fl (7.4-10.4); MONOCYTE # 0.8 10^3/ul (0.3-0.9); MONOCYTES % 7.2 % (0.0-11.0); NEUTROPHIL # 8.5 10^3/ul (1.6-7.5); NEUTROPHILS % 74.5 % (39.0-77.0); NUCLEATED RED BLOOD CELLS% 0.2 /100WBC (0.0-0.0); PLATELET COUNT 168 10^3/UL (140-415); RED BLOOD COUNT 3.41 10^6/ul (4.70-6.10); RED CELL DISTRIBUTION WIDTH 19.7 % (11.5-14.5)
[2018-11-28 06:01] LABS: WHITE BLOOD COUNT 11.4 10^3/ul (4.8-10.8)
[2018-11-28 06:13] LABS: PHOSPHORUS 3.7 mg/dl (2.5-4.9)
[2018-11-28 06:29] LABS: ANION GAP 7 (5-13); Estimated GFR > 60 mL/min (>60)
[2018-11-28 06:51] LABS: BLOOD UREA NITROGEN 14 mg/dl (7-20); CALCIUM 8.2 mg/dl (8.4-10.2); CARBON DIOXIDE 25 mmol/L (21-31); CHLORIDE 113 mmol/L (97-110); CREATININE 0.53 mg/dl (0.61-1.24); GLUCOSE 101 mg/dl (70-220); SODIUM 145 mmol/L (135-144)
[2018-11-28 07:17] LABS: POTASSIUM 3.5 mmol/L (3.5-5.1)
[2018-11-28] MEDS: POLYETHYLENE GLYCOL 17 GM PACKET NGT (09:00)
[2018-11-28] MEDS: DOCUSATE SODIUM 10 MG/ML (10ML CUP) NGT ×2 (09:00→21:29)
[2018-11-28] MEDS: PROPOFOL 100 ML IV (09:30)
[2018-11-28] MEDS: LINAGLIPTIN 5 MG TABLET NGT (09:47)
[2018-11-28] MEDS: FAMOTIDINE 20 MG TAB NGT ×2 (09:48→21:29)
[2018-11-28] MEDS: ASPIRIN 81 MG TAB PO (09:48)
[2018-11-28] MEDS: AMIODARONE 200 MG TAB NGT (09:51)
[2018-11-28] MEDS: POTASSIUM CHLORIDE 100 ML IVPB (10:01)
[2018-11-28] MEDS: FUROSEMIDE 40 MG TAB PO (10:01)
[2018-11-28 13:10] LABS: OCCULT BLOOD STOOL NEGATIVE (NEGATIVE)
[2018-11-28] MEDS: ATORVASTATIN 80 MG TAB NGT (21:29)
[2018-11-28] MEDS: ZOLPIDEM 5 MG TAB NGT (23:06)
[2018-11-29] MEDS: INSULIN ASPART [NOVOLOG] 3 ML PEN SC ×6 (01:00→20:47)
[2018-11-29 05:11] LABS: ADD MAN DIFF? NO
[2018-11-29 05:14] LABS: WHITE BLOOD COUNT 11.7 10^3/ul (4.8-10.8)
[2018-11-29 05:14] LABS: BASOPHILS % 0.3 % (0.0-2.0); EOSINOPHILS # 0.5 10^3/ul (0.0-0.5); EOSINOPHILS % 4.6 % (0.0-7.0); HEMATOCRIT 28.5 % (42.0-52.0); HEMOGLOBIN 8.8 g/dl (14.0-18.0); LYMPHOCYTES # 1.3 10^3/ul (0.8-2.9); MEAN CORPUSCULAR HEMOGLOBIN 26.2 pg (29.0-33.0); MEAN CORPUSCULAR HGB CONC 30.9 g/dl (32.0-37.0); MEAN CORPUSCULAR VOLUME 84.8 fl (82.0-101.0); MEAN PLATELET VOLUME 9.9 fl (7.4-10.4); MONOCYTE # 0.8 10^3/ul (0.3-0.9); MONOCYTES % 6.5 % (0.0-11.0); NEUTROPHILS % 76.8 % (39.0-77.0); PLATELET COUNT 175 10^3/UL (140-415); RED BLOOD COUNT 3.36 10^6/ul (4.70-6.10); RED CELL DISTRIBUTION WIDTH 19.9 % (11.5-14.5)
[2018-11-29 05:32] LABS: ANION GAP 3 (5-13); BLOOD UREA NITROGEN 12 mg/dl (7-20); CALCIUM 7.9 mg/dl (8.4-10.2); CARBON DIOXIDE 28 mmol/L (21-31); CHLORIDE 107 mmol/L (97-110); Estimated GFR > 60 mL/min (>60); GLUCOSE 105 mg/dl (70-220); MAGNESIUM 1.7 mg/dl (1.7-2.5); PHOSPHORUS 3.6 mg/dl (2.5-4.9); POTASSIUM 3.1 mmol/L (3.5-5.1); SODIUM 138 mmol/L (135-144)
[2018-11-29] MEDS: DOCUSATE SODIUM 10 MG/ML (10ML CUP) NGT ×2 (08:32→20:54)
[2018-11-29] MEDS: POTASSIUM CHLORIDE (SR) 20 MEQ TAB PO (08:32)
[2018-11-29] MEDS: POLYETHYLENE GLYCOL 17 GM PACKET NGT (08:33)
[2018-11-29] MEDS: AMIODARONE 200 MG TAB NGT (08:33)
[2018-11-29] MEDS: FUROSEMIDE 40 MG TAB PO (08:33)
[2018-11-29] MEDS: FAMOTIDINE 20 MG TAB NGT ×2 (08:34→20:55)
[2018-11-29] MEDS: ASPIRIN 81 MG TAB PO (08:34)
[2018-11-29] MEDS: LINAGLIPTIN 5 MG TABLET NGT (08:34)
[2018-11-29] MEDS: ATORVASTATIN 80 MG TAB NGT (20:55)
[2018-11-29] MEDS: ZOLPIDEM 5 MG TAB NGT (23:28)
[2018-11-30] MEDS: INSULIN ASPART [NOVOLOG] 3 ML PEN SC ×4 (01:00→17:00)
[2018-11-30 05:58] LABS: HEMATOCRIT 29.1 % (42.0-52.0); HEMOGLOBIN 8.7 g/dl (14.0-18.0); MEAN CORPUSCULAR HEMOGLOBIN 25.6 pg (29.0-33.0); MEAN CORPUSCULAR HGB CONC 29.9 g/dl (32.0-37.0); MEAN CORPUSCULAR VOLUME 85.6 fl (82.0-101.0); MEAN PLATELET VOLUME 9.9 fl (7.4-10.4); PLATELET COUNT 198 10^3/UL (140-415); POSITIVE DIFF @See below; RED CELL DISTRIBUTION WIDTH 19.9 % (11.5-14.5)
[2018-11-30 05:58] LABS: WHITE BLOOD COUNT 10.7 10^3/ul (4.8-10.8)
[2018-11-30 06:23] LABS: ANION GAP 4 (5-13); BLOOD UREA NITROGEN 12 mg/dl (7-20); CALCIUM 7.7 mg/dl (8.4-10.2); CARBON DIOXIDE 28 mmol/L (21-31); CHLORIDE 106 mmol/L (97-110); CREATININE 0.57 mg/dl (0.61-1.24); Estimated GFR > 60 mL/min (>60); GLUCOSE 83 mg/dl (70-220); MAGNESIUM 1.8 mg/dl (1.7-2.5); POTASSIUM 3.2 mmol/L (3.5-5.1); SODIUM 138 mmol/L (135-144)
[2018-11-30 06:39] LABS: ADD MAN DIFF? YES
[2018-11-30] MEDS: ASPIRIN 81 MG TAB PO (09:00)
[2018-11-30] MEDS: FAMOTIDINE 20 MG TAB NGT (09:00)
[2018-11-30] MEDS: FUROSEMIDE 40 MG TAB PO (09:00)
[2018-11-30] MEDS: DOCUSATE SODIUM 10 MG/ML (10ML CUP) NGT (09:00)
[2018-11-30] MEDS: POTASSIUM CHLORIDE (SR) 20 MEQ TAB PO (09:00)
[2018-11-30] MEDS: LINAGLIPTIN 5 MG TABLET NGT (09:00)
[2018-11-30] MEDS: AMIODARONE 200 MG TAB NGT (09:01)
[2018-11-30 09:38] LABS: ANISOCYTOSIS 2+ (0-0); BAND NEUTROPHILS #M 0.2 10^3/ul (0.0-0.6); BAND NEUTROPHILS % (M) 2 % (0-4); BURR CELLS 1+ (0-0); EOSINOPHILS % (M) 8 % (0-7); HYPOCHROMASIA 2+ (0-0); LYMPHOCYTES #M 0.7 10^3/ul (0.8-2.9); LYMPHOCYTES % (M) 7 % (15-51); MICROCYTOSIS 1+ (0-0); MONOCYTE #M 0.4 10^3/ul (0.3-0.9); MONOCYTES % (M) 4 % (0-11); OVALOCYTES 1+ (0-0); PLATELET ESTIMATE NORMAL; POIKILOCYTOSIS 2+ (0-0); POLYCHROMASIA 1+ (0-0); SEG NEUT #M 8.5 10^3/ul (1.6-7.5); SEGMENTED NEUTROPHILS (M) % 79 % (39-77); SMUDGE%M 5 % (0-0); TARGET CELLS 1+ (0-0)
== END 2018-11-30 19:00 | DRG 853 ==
LOC: 6WM 11-28 18:08 → E/R 05:47 → ICU 08:04
PROC: 0WCC0ZZ Extirpation of Matter from Mediastinum, Open Approach (ICD-10-PCS; 2018-11-23 07:30)
PROC: 0PB00ZZ Excision of Sternum, Open Approach (ICD-10-PCS; 2018-11-23 07:30)
PROC: 0WQ80ZZ Repair Chest Wall, Open Approach (ICD-10-PCS; 2018-11-23 07:30)
PROC: 5A1955Z Respiratory Ventilation, Greater than 96 Consecutive Hours (ICD-10-PCS; principal; 2018-11-23 07:46)
PROC: 0BH17EZ Insertion of Endotracheal Airway into Trachea, Via Natural or Artificial Opening (ICD-10-PCS; 2018-11-23 07:46)
PROC: 30233N1 Transfusion of Nonautologous Red Blood Cells into Peripheral Vein, Percutaneous Approach (ICD-10-PCS; 2018-11-23 07:46)
PROC: 0W993ZZ Drainage of Right Pleural Cavity, Percutaneous Approach (ICD-10-PCS; 2018-11-23 07:46)
DX: A41.9 Sepsis, unspecified organism (principal); R65.21 Severe sepsis with septic shock; J96.01 Acute respiratory failure with hypoxia; J18.9 Pneumonia, unspecified organism; I50.33 Acute on chronic diastolic (congestive) heart failure; T81.30XA Disruption of wound, unspecified, initial encounter; E87.2 Acidosis; N17.9 Acute kidney failure, unspecified; I13.0 Hypertensive heart and chronic kidney disease with heart failure and stage 1 through stage 4 chronic kidney disease, or unspecified chronic kidney disease; J94.2 Hemothorax; N39.0 Urinary tract infection, site not specified; N18.9 Chronic kidney disease, unspecified; Z95.1 Presence of aortocoronary bypass graft; Z87.891 Personal history of nicotine dependence; J44.9 Chronic obstructive pulmonary disease, unspecified
CPT/HCPCS: 31500; 36415; 36430; 36600; 70450; 71045; 71250; 71260; 74177; 76775; 76942; 80048; 80053; 80202; 81001; 81003; 82043; 82270; 82607; 82728; 82746; 82803; 82962; 83540; 83605; 83735; 83880; 84100; 84145; 84155; 84300; 84484; 85014; 85018; 85025; 85045; 85610; 85730; 86644; 86850; 86900; 86901; 86920; 87040-91; 87045; 87070; 87081; 87086; 88300; 88304; 92526; 92610; 93005; 94002; 94003; 94640; 94644; 94660; 94770; 96365; 96375; 97116; 97162; 97530; 99285-25

== ENCOUNTER 2018-11-30 18:25 | Inpatient (IN) | payer OTHER ==
[2018-11-30] MEDS ORDERED: MAGNESIUM HYDROXIDE 30ML CUP PO (19:00)
[2018-11-30] MEDS ORDERED: GLUCOSE GEL 15 GRAM TUBE PO ×2 (19:00)
[2018-11-30] MEDS ORDERED: GLUCOSE GEL 15 GRAM TUBE BUCCAL (19:00)
[2018-11-30] MEDS ORDERED: DEXTROSE 50% 50 ML SYRINGE IV ×2 (19:00)
[2018-11-30] MEDS ORDERED: ZOLPIDEM 5 MG TAB PO (19:00)
[2018-11-30] MEDS ORDERED: ACETAMINOPHEN 325 MG TAB PO (19:00)
[2018-11-30] MEDS ORDERED: BISACODYL 10 MG SUPP PR (19:00)
[2018-11-30] MEDS ORDERED: GLUCAGON 1 MG INJ IM (19:00)
[2018-11-30] MEDS ORDERED: PENDING SANTYL ORDER FOR WOUND CARE XX (19:00)
[2018-11-30] MEDS ORDERED: LACTULOSE 30ML CUP PO (19:00)
[2018-11-30] MEDS: DOCUSATE SODIUM 100 MG CAP PO (21:00)
[2018-11-30] MEDS: SENNA TAB PO (21:00)
[2018-11-30] MEDS: INSULIN ASPART [NOVOLOG] 3 ML PEN SC (21:00)
[2018-11-30] MEDS: ATORVASTATIN 80 MG TAB PO (21:04)
[2018-11-30] MEDS: ACCU-CHEK XX (21:06)
[2018-12-01 00:35] LABS: ADD UMIC YES; UR ASCORBIC ACID NEGATIVE (NEGATIVE); UR BILIRUBIN (Dip) NEGATIVE (NEGATIVE); UR BLOOD (Dip) 3+ mg/dL (NEGATIVE); UR CLARITY SLIGHTLY CLOUDY (CLEAR); UR COLOR AMBER (YELLOW); UR GLUCOSE (Dip) NEGATIVE (NEGATIVE); UR KETONES (Dip) NEGATIVE (NEGATIVE); UR LEUKOCYTE ESTERASE (Dip) NEGATIVE Leu/ul (NEGATIVE); UR MUCUS MODERATE /HPF (NONE SEEN); UR NITRITE (Dip) NEGATIVE (NEGATIVE); UR RBC > 182 /HPF (0-5); UR SPECIFIC GRAVITY (Dip) 1.017 (1.003-1.030); UR SQUAMOUS EPITHELIAL CELL FEW /HPF (FEW); UR TOTAL PROTEIN (Dip) NEGATIVE (NEGATIVE); UR UROBILINOGEN (Dip) NEGATIVE (NEGATIVE); UR WBC 7 /HPF (0-5)
[2018-12-01] MEDS: ACCU-CHEK XX ×5 (02:00→20:26)
[2018-12-01] MEDS: INSULIN ASPART [NOVOLOG] 3 ML PEN SC ×4 (07:35→20:25)
[2018-12-01] MEDS: FAMOTIDINE 20 MG TAB PO ×2 (07:54→17:00)
[2018-12-01] MEDS: FUROSEMIDE 20 MG TAB PO (08:26)
[2018-12-01] MEDS: AMIODARONE 200 MG TAB PO (08:26)
[2018-12-01] MEDS: LINAGLIPTIN 5 MG TABLET PO (08:27)
[2018-12-01] MEDS: ASPIRIN 81 MG TAB PO (08:27)
[2018-12-01] MEDS: DOCUSATE SODIUM 100 MG CAP PO ×2 (08:28→20:25)
[2018-12-01 08:36] LABS: ALANINE AMINOTRANSFERASE 66 IU/L (13-69); ALBUMIN 2.5 g/dl (3.3-4.9); ALBUMIN/GLOBULIN RATIO 0.73; ALKALINE PHOSPHATASE 93 IU/L (42-121); ANION GAP 7 (5-13); ASPARTATE AMINO TRANSFERASE 47 IU/L (15-46); BILIRUBIN,INDIRECT 1.4 mg/dl (0-1.1); BILIRUBIN,TOTAL 1.4 mg/dl (0.2-1.3); BLOOD UREA NITROGEN 16 mg/dl (7-20); CALCIUM 7.9 mg/dl (8.4-10.2); CARBON DIOXIDE 25 mmol/L (21-31); CHLORIDE 105 mmol/L (97-110); CREATININE 0.87 mg/dl (0.61-1.24); Estimated GFR > 60 mL/min (>60); GLUCOSE 85 mg/dl (70-220); POTASSIUM 3.5 mmol/L (3.5-5.1); SODIUM 137 mmol/L (135-144); TOTAL PROTEIN 5.9 g/dl (6.1-8.1)
[2018-12-01] MEDS: ATORVASTATIN 80 MG TAB PO (20:25)
[2018-12-01] MEDS: SENNA TAB PO (20:25)
[2018-12-02] MEDS: ACCU-CHEK XX ×5 (02:00→20:43)
[2018-12-02] MEDS: FAMOTIDINE 20 MG TAB PO ×2 (06:43→18:04)
[2018-12-02 07:17] LABS: ADD MAN DIFF? NO
[2018-12-02 07:20] LABS: BASOPHILS % 0.3 % (0.0-2.0); EOSINOPHILS # 0.2 10^3/ul (0.0-0.5); HEMATOCRIT 29.2 % (42.0-52.0); HEMOGLOBIN 8.8 g/dl (14.0-18.0); LYMPHOCYTES # 0.9 10^3/ul (0.8-2.9); LYMPHOCYTES % 7.1 % (15.0-51.0); MEAN CORPUSCULAR HGB CONC 30.1 g/dl (32.0-37.0); MEAN CORPUSCULAR VOLUME 86.4 fl (82.0-101.0); MEAN PLATELET VOLUME 9.5 fl (7.4-10.4); MONOCYTE # 0.6 10^3/ul (0.3-0.9); NEUTROPHIL # 10.4 10^3/ul (1.6-7.5); PLATELET COUNT 235 10^3/UL (140-415); RED BLOOD COUNT 3.38 10^6/ul (4.70-6.10); RED CELL DISTRIBUTION WIDTH 20.3 % (11.5-14.5)
[2018-12-02 07:20] LABS: WHITE BLOOD COUNT 12.2 10^3/ul (4.8-10.8)
[2018-12-02] MEDS: INSULIN ASPART [NOVOLOG] 3 ML PEN SC ×4 (07:35→20:43)
[2018-12-02 07:49] LABS: ANION GAP 4 (5-13); BLOOD UREA NITROGEN 16 mg/dl (7-20); CALCIUM 7.8 mg/dl (8.4-10.2); CARBON DIOXIDE 27 mmol/L (21-31); CHLORIDE 106 mmol/L (97-110); CREATININE 1.07 mg/dl (0.61-1.24); Estimated GFR > 60 mL/min (>60); GLUCOSE 101 mg/dl (70-220); MAGNESIUM 1.9 mg/dl (1.7-2.5); PHOSPHORUS 4.2 mg/dl (2.5-4.9); POTASSIUM 3.4 mmol/L (3.5-5.1); SODIUM 137 mmol/L (135-144)
[2018-12-02] MEDS: LINAGLIPTIN 5 MG TABLET PO (08:03)
[2018-12-02] MEDS: ASPIRIN 81 MG TAB PO (08:04)
[2018-12-02] MEDS: AMIODARONE 200 MG TAB PO (08:06)
[2018-12-02] MEDS: FUROSEMIDE 20 MG TAB PO (08:07)
[2018-12-02] MEDS: DOCUSATE SODIUM 100 MG CAP PO ×2 (08:08→20:43)
[2018-12-02] MEDS: ATORVASTATIN 80 MG TAB PO (20:42)
[2018-12-02] MEDS: SENNA TAB PO (20:43)
[2018-12-03] MEDS: ACCU-CHEK XX ×5 (02:00→20:37)
[2018-12-03] MEDS: FAMOTIDINE 20 MG TAB PO ×2 (06:47→17:13)
[2018-12-03] MEDS: INSULIN ASPART [NOVOLOG] 3 ML PEN SC ×4 (07:35→20:37)
[2018-12-03] MEDS: ASPIRIN 81 MG TAB PO (08:02)
[2018-12-03] MEDS: LINAGLIPTIN 5 MG TABLET PO (08:02)
[2018-12-03] MEDS: AMIODARONE 200 MG TAB PO (08:03)
[2018-12-03] MEDS: FUROSEMIDE 20 MG TAB PO (08:03)
[2018-12-03] MEDS: DOCUSATE SODIUM 100 MG CAP PO ×2 (08:06→20:37)
[2018-12-03 08:51] LABS: ADD MAN DIFF? NO
[2018-12-03 08:58] LABS: BASOPHILS % 0.3 % (0.0-2.0); EOSINOPHILS # 0.5 10^3/ul (0.0-0.5); EOSINOPHILS % 3.6 % (0.0-7.0); HEMOGLOBIN 9.2 g/dl (14.0-18.0); LYMPHOCYTES # 1.3 10^3/ul (0.8-2.9); LYMPHOCYTES % 10.2 % (15.0-51.0); MEAN CORPUSCULAR HEMOGLOBIN 25.6 pg (29.0-33.0); MEAN CORPUSCULAR HGB CONC 29.7 g/dl (32.0-37.0); MEAN CORPUSCULAR VOLUME 86.4 fl (82.0-101.0); MEAN PLATELET VOLUME 9.7 fl (7.4-10.4); MONOCYTE # 0.9 10^3/ul (0.3-0.9); MONOCYTES % 6.9 % (0.0-11.0); NEUTROPHILS % 78.3 % (39.0-77.0); PLATELET COUNT 350 10^3/UL (140-415); RED BLOOD COUNT 3.59 10^6/ul (4.70-6.10); RED CELL DISTRIBUTION WIDTH 20.5 % (11.5-14.5)
[2018-12-03 08:58] LABS: WHITE BLOOD COUNT 12.8 10^3/ul (4.8-10.8)
[2018-12-03 09:18] LABS: ALANINE AMINOTRANSFERASE 50 IU/L (13-69); ALKALINE PHOSPHATASE 102 IU/L (42-121); ASPARTATE AMINO TRANSFERASE 38 IU/L (15-46); BILIRUBIN,INDIRECT 1.3 mg/dl (0-1.1); BILIRUBIN,TOTAL 1.3 mg/dl (0.2-1.3); TOTAL PROTEIN 6.6 g/dl (6.1-8.1)
[2018-12-03] MEDS: ATORVASTATIN 80 MG TAB PO (20:36)
[2018-12-03] MEDS: SENNA TAB PO (20:37)
[2018-12-04] MEDS: ACCU-CHEK XX ×2 (02:00→07:05)
[2018-12-04] MEDS: FAMOTIDINE 20 MG TAB PO (06:27)
[2018-12-04] MEDS: INSULIN ASPART [NOVOLOG] 3 ML PEN SC (07:35)
[2018-12-04] MEDS: ASPIRIN 81 MG TAB PO (08:26)
[2018-12-04] MEDS: LINAGLIPTIN 5 MG TABLET PO (08:26)
[2018-12-04] MEDS: AMIODARONE 200 MG TAB PO (08:27)
[2018-12-04] MEDS: DOCUSATE SODIUM 100 MG CAP PO (08:27)
[2018-12-04] MEDS: FUROSEMIDE 20 MG TAB PO (08:27)
== END 2018-12-04 11:10 | disposition home health service (06) | DRG 93 ==
LOC: VRC 18:25
PROC: F07Z5ZZ Bed Mobility Treatment (ICD-10-PCS; principal; 2018-12-01)
PROC: F07Z8ZZ Transfer Training Treatment (ICD-10-PCS; 2018-12-01)
PROC: F07Z9ZZ Gait Training/Functional Ambulation Treatment (ICD-10-PCS; 2018-12-01)
PROC: F08Z2ZZ Grooming/Personal Hygiene Treatment (ICD-10-PCS; 2018-12-01)
PROC: F08Z1ZZ Dressing Techniques Treatment (ICD-10-PCS; 2018-12-01)
PROC: F08Z0ZZ Bathing/Showering Techniques Treatment (ICD-10-PCS; 2018-12-01)
PROC: F06ZDZZ Swallowing Dysfunction Treatment (ICD-10-PCS; 2018-12-01)
DX: G72.81 Critical illness myopathy (principal); I25.10 Atherosclerotic heart disease of native coronary artery without angina pectoris; D64.9 Anemia, unspecified; E11.9 Type 2 diabetes mellitus without complications; E66.9 Obesity, unspecified; I11.0 Hypertensive heart disease with heart failure; I50.9 Heart failure, unspecified; J44.9 Chronic obstructive pulmonary disease, unspecified; R13.11 Dysphagia, oral phase; R10.9 Unspecified abdominal pain; R74.0 Nonspecific elevation of levels of transaminase and lactic acid dehydrogenase [LDH]; Z98.890 Other specified postprocedural states; Z87.09 Personal history of other diseases of the respiratory system; Z87.01 Personal history of pneumonia (recurrent); Z95.1 Presence of aortocoronary bypass graft; Z87.891 Personal history of nicotine dependence; Z68.31 Body mass index [BMI] 31.0-31.9, adult; Z79.84 Long term (current) use of oral hypoglycemic drugs
CPT/HCPCS: 74018; 80048; 80053; 80076; 81001; 82962; 83735; 84100; 85025; 87081; 87086; 92610; 97110; 97116; 97162; 97166; 97530; 97535